=== PATIENT | female | born 1945 | race Caucasian/White ===

== ENCOUNTER → 2016-08-08 | Outpatient (CLI) | payer OTHER ==
[~2016-08-08] MED LIST: ALDA25TA2 OR; AUGM500T34 PO; BENI20TA11 OR; BETA80TA OR; COMBAER6 INH; DIGO0.126 OR; DIGO0.127 PO; FURO20TA2 OR; FURO20TA2 PO; LASI20TA OR; LOSA50TA20 PO; NITR0.4D6 TD; NITRODUR; NITROGLYCERIN TOP; OMEP20CA3 PO; OMEP20TA7 OR; PRAD150C PO; SOTA80TA2 OR; SUPE1TAB PO; TOPR50TA PO; TYLE1TAB5 PO; VIT D 2000 PO; VITA-122 PO; VITA-56 OR; VITA10005 PO; VITAMIN B COMPLE1 OR; pradaxa PO
--- NOTE | 2016-08-08 11:32 | REP ---
LEFT HAND SERIES: Four views. History: Left hand pain. FINDINGS: Four views of the left hand show mild diffuse osteopenia. There is osteoarthritis at the first carpometacarpal articulation with joint space narrowing and sclerosis. Mild osteoarthritic changes are seen at the DIP joints of the index and small finger. IMPRESSION: Osteoarthritic changes. No acute bony abnormality. Signed by Zach Love MD 08/08/2016 02:29 P
--- NOTE | 2016-08-08 12:09 | REP ---
LEFT WRIST, FOUR VIEWS: HISTORY: Pain. There is no acute fracture or dislocation. There is narrowing of the first carpometacarpal joint space with associated sclerosis. IMPRESSION: Degenerative change as described above. Signed by Darius Saini MD 08/08/2016 12:18 P
== END ==
LOC: M SMT 10:37
PROVIDERS: ATTEND Physician Assistant
DX: M19.042 Primary osteoarthritis, left hand (principal)
CPT/HCPCS: 73110; 73130; G0463

== ENCOUNTER → 2016-12-26 | Outpatient (REF) | payer OTHER ==
[2016-12-26 20:17] LABS: ALBUMIN 3.7 GM/DL (3.2-5.2); ALBUMIN/GLOBULIN RATIO 1.19 (1.00-1.93); ALKALINE PHOSPHATASE 76 U/L (45-117); ALT/SGPT 29 U/L (12-78); ANION GAP 2 MEQ/L (8-16); AST/SGOT 22 U/L (15-37); BILIRUBIN,TOTAL 0.8 MG/DL (0.2-1.0); BLOOD UREA NITROGEN 13 MG/DL (7-18); CALCIUM LEVEL 9.2 MG/DL (8.8-10.2); CARBON DIOXIDE LEVEL 31 MEQ/L (21-32); CHLORIDE LEVEL 104 MEQ/L (98-107); CHOLESTEROL LEVEL 154 MG/DL (<200); CREATININE FOR GFR 0.79 MG/DL (0.55-1.02); GLOMERULAR FILTRATION RATE > 60.0 (>39); GLUCOSE, FASTING 101 MG/DL (83-110); POTASSIUM SERUM 4.2 MEQ/L (3.5-5.1); SODIUM LEVEL 137 MEQ/L (136-145); TOTAL PROTEIN 6.8 GM/DL (6.4-8.2); TRIGLYCERIDES LEVEL 114 MG/DL (<150)
== END ==
LOC: M SFHCPLAZ 15:00
PROVIDERS: ATTEND Physician Assistant
DX: I50.9 Heart failure, unspecified (principal); Z13.220 Encounter for screening for lipoid disorders

== ENCOUNTER → 2017-03-13 | Outpatient (CLI) | payer OTHER ==
--- NOTE | 2017-03-14 03:10 | REP ---
Clinical: Postmenopausal bleeding. Technique: Transabdominal pelvic ultrasound followed by transvaginal examination for better evaluation of the endometrium and adnexa. Findings: Bladder is unremarkable and measures 8.1 x 4.7 x 8.2 cm . Normal anteverted uterus measures 6.8 x 4.0 x 4.8 cm . The endometrial complex measures 4 mm thickness. No discrete uterine or endometrial abnormalities are appreciated. The ovaries were not visualized. No pelvic fluid or adnexal mass lesion appreciated. Impression: 1. Normal appearing uterus and endometrium.
== END ==
LOC: M WHC 12:52
PROVIDERS: ATTEND Nurse Practitioner Family
DX: N95.0 Postmenopausal bleeding (principal)

== ENCOUNTER → 2017-04-18 | Outpatient (CLI) | payer OTHER ==
[2017-04-18 18:50] LABS: ALBUMIN 3.8 GM/DL (3.2-5.2); ALBUMIN/GLOBULIN RATIO 1.31 (1.00-1.93); ALKALINE PHOSPHATASE 75 U/L (45-117); ALT/SGPT 27 U/L (12-78); ANION GAP 6 MEQ/L (8-16); AST/SGOT 19 U/L (7-37); BILIRUBIN,TOTAL 0.8 MG/DL (0.2-1.0); BLOOD UREA NITROGEN 15 MG/DL (7-18); CALCIUM LEVEL 9.4 MG/DL (8.8-10.2); CARBON DIOXIDE LEVEL 32 MEQ/L (21-32); CHLORIDE LEVEL 103 MEQ/L (98-107); CREATININE FOR GFR 0.84 MG/DL (0.55-1.02); GLOMERULAR FILTRATION RATE > 60.0 (>39); GLUCOSE, FASTING 95 MG/DL (83-110); SODIUM LEVEL 141 MEQ/L (136-145); TOTAL PROTEIN 6.7 GM/DL (6.4-8.2)
[2017-04-18 19:04] LABS: BASO % 0.4 % (0.0-1.0); EOS # 0.2 10^3/uL (0.0-0.50); EOS % 2.7 % (0.0-3.0); IMMATURE GRANULOCYTE % 0.4 % (0-0); LYMPH # 1.2 10^3/uL (1.5-4.5); LYMPH % 20.8 % (24.0-44.0); MEAN CORPUSCULAR HEMOGLOBIN 32.6 pg (27.0-33.0); MEAN CORPUSCULAR HGB CONC 32.8 g/dl (32.0-36.5); MEAN CORPUSCULAR VOLUME 99.3 fl (80.0-96.0); MONO # 0.8 10^3/uL (0.0-0.8); MONO % 14.7 % (0.0-5.0); NEUTROPHILS # 3.4 10^3/uL (1.8-7.7); PLATELET COUNT, AUTOMATED 131 10^3/uL (150-450); RED CELL DISTRIBUTION WIDTH 13.4 % (11.5-14.5); WHITE BLOOD COUNT 5.6 10^3/uL (4.0-10.0)
== END ==
LOC: M SMT 13:43
PROVIDERS: ATTEND Internal Medicine Hematology & Oncology
DX: C85.90 Non-Hodgkin lymphoma, unspecified, unspecified site (principal)

== ENCOUNTER → 2017-04-26 | Outpatient (CLI) | payer OTHER ==
[~2017-04-26] MED LIST changes: +GASTROGRAFIN SOLUTION 30ML (Q9963) As Ordered ONE; +ISOVUE-370 76% 100ML VIAL (Q9967) As Ordered ONE
--- NOTE | 2017-04-26 12:09 | REP ---
Clinical: Lymphoma. Technique: Axial contrast enhanced images from the lung bases to the pubic symphysis using oral (per protocol) and 100 ml Isovue 370 intravenous contrast material with precontrast and delayed images of the abdomen as well as coronal and sagittal re-formations. Comparison: 04/01/2016. Findings: Multiple retroperitoneal/ periaortic and para caval lymph nodes are appreciated at and below the level of the renal veins. Focal lymph nodes are identified at the level of the renal hilum which measure 2.7 x 2.5 x 3.2 cm, and 2.7 x 3.2 x 3.2 cm as well as a conglomerate mass-like appearance to the lymph nodes which is inseparable from the inferior vena cava from the level of the renal hilum extending inferiorly along the retroperitoneum and measures roughly 5.1 x 3.4 x 6.2 cm (images 42 - 80). Lymph nodes are considerably increased in size when compared to prior examination and smaller lymph nodes extending into the pelvis cannot definitively be excluded as well. No ascites. Liver, spleen, pancreas, gallbladder, bilateral adrenal glands and kidneys are relatively normal / stable. Simple bilateral renal cysts are again identified. The enteric system is without obstruction or acute inflammatory process and a normal terminal ileum and appendix are identified in the right lower quadrant. Pelvis demonstrates normal bladder and age-appropriate uterus/adnexa. Atherosclerotic changes of the aorta and vasculature noted without aneurysm. No free air. Musculoskeletal structures demonstrate stable degenerative changes without focal osseous abnormality. Lung bases demonstrate mild chronic fibrosis and interstitial changes along with stable cardiomegaly. Impression: 1. Enlarged lymph nodes in the right retroperitoneal/ periaortic and paracaval distribution extending from approximately the renal veins caudally to the pelvis as described above. 2. Stable simple renal cysts. 3. Lung bases demonstrate chronic interstitial changes and fibrosis along with cardiomegaly. Signed by Hammad Steel MD 04/26/2017 12:01 P
--- NOTE | 2017-04-26 12:10 | REP ---
Clinical: Lymphoma. Technique: Axial contrast enhanced images from the thoracic inlet to the upper abdomen using 100 ml Isovue 370 intravenous contrast material with coronal and sagittal re-formations. Comparison: 04/01/2016. Findings: The lung santana are well-aerated and demonstrate moderate chronic interstitial changes and mild basilar fibrosis/scarring. No consolidation, significant nodule or mass lesion is appreciated. No pleural effusion or pneumothorax. Tracheobronchial tree is patent. No significant axillary, hilar, or mediastinal adenopathy is appreciated. Cardiomegaly is identified along with atherosclerotic changes to the coronary arteries. No pericardial effusion. The thoracic aorta is without aneurysm or dissection. Left thyroid lobe enlargement with low density nodules and cystic changes remain stable. Surrounding musculoskeletal structures demonstrate age-related changes without focal osseous abnormality Impression: 1. Chronic stable changes and cardiomegaly as noted above without acute mediastinal or pleuroparenchymal process. Specifically, no adenopathy. 2. Heterogeneous multinodular thyroid gland remains stable compared to 2016. Signed by Hammad Steel MD 04/26/2017 12:02 P
== END ==
LOC: M RAD 09:11
PROVIDERS: ATTEND Internal Medicine Hematology & Oncology
DX: Z85.71 Personal history of Hodgkin lymphoma (principal)

== ENCOUNTER → 2017-05-02 | Outpatient (CLI) | payer OTHER ==
[~2017-05-02] MED LIST changes: +CALCTAB75 PO; +ENTR1TAB PO; -GASTROGRAFIN SOLUTION 30ML (Q9963) As Ordered ONE; -ISOVUE-370 76% 100ML VIAL (Q9967) As Ordered ONE; +NITR0.4S14 SL
[2017-05-02 17:30] LABS: MEAN CORPUSCULAR HEMOGLOBIN 32.6 pg (27.0-33.0); MEAN CORPUSCULAR HGB CONC 32.6 g/dl (32.0-36.5); PLATELET COUNT, AUTOMATED 115 10^3/uL (150-450); RED CELL DISTRIBUTION WIDTH 13.7 % (11.5-14.5)
[2017-05-02 17:38] LABS: ANION GAP 5 MEQ/L (8-16); BLOOD UREA NITROGEN 12 MG/DL (7-18); CALCIUM LEVEL 8.5 MG/DL (8.8-10.2); CARBON DIOXIDE LEVEL 30 MEQ/L (21-32); CHLORIDE LEVEL 107 MEQ/L (98-107); CREATININE FOR GFR 0.81 MG/DL (0.55-1.02); GLOMERULAR FILTRATION RATE > 60.0 (>39); GLUCOSE, FASTING 119 MG/DL (83-110); SODIUM LEVEL 142 MEQ/L (136-145)
== END ==
LOC: M LRY 11:51
PROVIDERS: ATTEND Internal Medicine Cardiovascular Disease
DX: I50.9 Heart failure, unspecified (principal)

== ENCOUNTER 2017-05-09 12:46 | Inpatient (IN) | payer OTHER ==
[~2017-05-09] VITALS: Ht 165.1 cm; Wt 62.6 kg
[~2017-05-09 12:46] MED LIST changes: -CALCTAB75 PO; -CEFD300CAP PO; -ENTR1TAB PO; -NITR0.4S14 SL
[2017-05-09] MEDS ORDERED: ENTR1TAB PO (13:10)
[2017-05-09 14:48] LABS: BASO % 0.3 % (0.0-1.0); IMMATURE GRANULOCYTE % 0.4 % (0-0); LYMPH # 1.3 10^3/uL (1.5-4.5); LYMPH % 10.5 % (24.0-44.0); MEAN CORPUSCULAR HEMOGLOBIN 32.5 pg (27.0-33.0); MEAN CORPUSCULAR HGB CONC 33.7 g/dl (32.0-36.5); MEAN CORPUSCULAR VOLUME 96.4 fl (80.0-96.0); MONO # 1.7 10^3/uL (0.0-0.8); MONO % 13.2 % (0.0-5.0); NEUTROPHILS # 9.5 10^3/uL (1.8-7.7); NEUTROPHILS % 75.6 % (36.0-66.0); PLATELET COUNT, AUTOMATED 133 10^3/uL (150-450); RED CELL DISTRIBUTION WIDTH 13.2 % (11.5-14.5); WHITE BLOOD COUNT 12.6 10^3/uL (4.0-10.0)
[2017-05-09 15:16] LABS: MUCUS, URINE RFX SMALL (NEGATIVE); SPECIFIC GRAVITY UR AUTO RFX 1.014 (1.002-1.035); SQUAM EPITHELIAL CELL UR AURFX 4 /HPF (0-6)
[2017-05-09 15:35] LABS: ALBUMIN/GLOBULIN RATIO 1.08 (1.00-1.93); ALKALINE PHOSPHATASE 87 U/L (45-117); ALT/SGPT 26 U/L (12-78); ANION GAP 13 MEQ/L (8-16); AST/SGOT 19 U/L (7-37); BILIRUBIN,DIRECT 0.9 MG/DL (0.0-0.2); BILIRUBIN,TOTAL 2.4 MG/DL (0.2-1.0); BLOOD UREA NITROGEN 18 MG/DL (7-18); CALCIUM LEVEL 8.9 MG/DL (8.8-10.2); CARBON DIOXIDE LEVEL 25 MEQ/L (21-32); CHLORIDE LEVEL 100 MEQ/L (98-107); CREATININE FOR GFR 0.94 MG/DL (0.55-1.02); DIGOXIN LEVEL 0.7 NG/ML (0.5-2.0); GLOMERULAR FILTRATION RATE > 60.0 (>39); GLUCOSE, FASTING 100 MG/DL (83-110); SODIUM LEVEL 138 MEQ/L (136-145); TOTAL PROTEIN 7.7 GM/DL (6.4-8.2)
--- NOTE | 2017-05-09 15:50 | REP ---
CT ABDOMEN AND PELVIS WITHOUT CONTRAST: 05/09/2017. Comparison: CT without and with contrast 04/26/2017. Clinical history: Right flank pain, fever, UTI symptoms. Findings: CT abdomen: Lung bases show some minor dependent atelectasis and fibrosis without effusion or infiltrate. Heart is enlarged. There is cardiomegaly with left atrial and ventricular enlargement. Pacer leads in the heart. No hiatal hernia. Liver and spleen were grossly intact. There is some layered hyperdense stones in the dependent gallbladder. Pancreas unremarkable. Adrenal glands intact. There is developed obstructive uropathy on the right side with hydronephrosis, hydroureter and extrarenal pelvis. Appears to be a UPJ obstruction with large bulky aortocaval pericaval nodes with some periaortic nodes as well extending from the level of takeoff of the SMA inferiorly into the upper pelvis. Some of these follow the iliac vessels. The nodes are not much different than 2 weeks ago, but the hydronephrosis is new on that right side. I do not see left-sided hydronephrosis. The left ureter is without dilatation. There is no stone in the left collecting system or ureter. Stool fills much of the colon, but without signs of colitis or diverticulitis. Atherosclerotic calcifications throughout the aorta without aneurysm. Small bowel loops are not abnormally dilated. Lung windows show no perforation or free air. Bone windows show degenerative disc changes, greatest at L5-S1 with some facet arthropathy lower lumbar spine, but no destructive lesions in the lumbar spine or acute compression deformities visible. The bone windows show no rib fractures. CT pelvis: SI joints, sacrum, pelvic bones, hips and pubic symphysis were unremarkable. Uterus anteverted, not enlarged and it is midline. I do not see definite pelvic lymphadenopathy. The bladder shows thickened wall and underfilling. No bladder mass or stone. Small bowel loops are not abnormally dilated. There is no ventral or inguinal hernia nor pathologic inguinal adenopathy. No colitis or diverticulitis in the distal left colon to the rectosigmoid. No inflammatory changes about the cecum. Appendix is grossly intact. Impression: 1. Multiple pericaval, retroperitoneal and aortocaval adenopathy, predominately on the right contributing to new hydronephrosis, the nodes are unchanged. Extrarenal pelvis with obstruction is new compared to 2 weeks ago. No renal stone. There is a cyst in the kidney on the right, unchanged. The left kidney shows no hydronephrosis or stone. Nodes are unchanged. 2. The gallbladder shows some dependent gravel in its posterior margin, solid organs in the upper abdomen otherwise unremarkable. 3. Bladder with underfilling and a somewhat thickened wall. No mass or stone. No ureteral stone. No other significant or acute finding. Signed by Dae Faith MD 05/09/2017 08:34 P
[2017-05-09] MEDS ORDERED: ACETAMINOPHEN 325 MG TAB PO ONE (17:00)
[2017-05-09] MEDS ORDERED: CEFTRIAXONE SOD 2 GM in APPROPRIATE DILUENT 1 EA IV ONE (17:00)
[2017-05-09] MEDS ORDERED: CALCTAB75 PO (17:16)
[2017-05-09] MEDS ORDERED: NITR0.4S14 SL (17:16)
--- NOTE | 2017-05-09 18:41 | SMCUROLCON ---
Urology Consultation General Date of Consultation 05/09/17 Reason For Consultation This patient is seen for Pyelonephritis. History of Present Illness This is a 72 y/o F w/ a PMH significant for Non-Hodgkins Lymphoma, CHF, AF (on pradaxa), and GERD, being admitted to the hospital for pyelonephritis. She notes that she started having fevers to 102, right flank pain, and urinary frequency yesterday. She denies nausea or vomiting. A noncontrast CT A/P was notable for moderate right hydronephrosis down to the ureteropelvic junction ( UPJ) due to obstruction from retroperitoneal lymphadenopathy. Her WBC is 12.6 and her Cr is 0.9, not much higher than her baseline. Past Medical History Medical History see HPI Surgical Hstory AICD 2009, Pacemaker/Defibrillator x 2 Tubal Ligation Tonsillectomy Mediport Insertion 2003 & removed Medications Current Medications Current Medications Acetaminophen (Tylenol Tab) 650 mg Q4HP PRN PO MILD PAIN OR FEVER; Start at 18:00; Stop 06/08/17 at 17:59 Calcium/Vitamin D (Oscal D) 500 mg BID PO ; Start 05/09/17 at 21:00; Stop at 20:59 Ceftriaxone Sodium 2 gm/IV Miscellaneous Supplies 20 ml @ 40 mls/hr Q24H IV ; Start 05/10/17 at 18:00; Stop 05/17/17 at 17:59 Digoxin (Lanoxin) 0.125 mg DAILY PO ; Start 05/10/17 at 09:00; Stop 06/09/17 at 08:59 Furosemide (Lasix) 20 mg DAILY PO ; Start 05/10/17 at 09:00; Stop 05/10/17 at 09 :00; Status DC Home Med (Med Rec Complete!) ASDIRECTED XX ; Start 05/09/17 at 17:30; Stop 05/09/17 at 17:30; Status DC Metoprolol Succinate (TopROL XL) 150 mg QHS PO ; Start 05/09/17 at 21:00; Stop 06/08/17 at 20:59 Nitroglycerin (Nitrostat (1/ 150)) 0.4 mg Q5MP PRN SL CHEST PAIN; Start at 18:00; Stop 06/08/17 at 17:59 Sacubitril/ Valsartan (Entresto 24-26 Mg) 1 tab BID PO ; Start 05/09/17 at 21:00 ; Stop 05/09/17 at 21:00; Status DC Vitamin D (Vitamin D) 1,000 units DAILY PO ; Start 05/10/17 at 09:00; Stop at 08:59 Allergies Allergies: Coded Allergies: Ciprofloxacin (Unverified Allergy, Unknown, 01/14/16) Review of Systems Constitutional: Reports: Fever ENT: Denies: Head Aches Skin: Denies: Rash, Lesions, Breakdown, Nail Changes Pulmonary: Denies: Dyspnea, Cough Cardiovascular: Denies Chest Pain, Denies Palpitations Gastrointestinal: Reports: Abdominal Pain Genitourinary: Reports: Frequency Musculoskeletal: Reports: Back Pain (right flank pain yesterday) Psych: Reports: Mood Normal Physical Examination General Exam: Alert, Cooperative Chest Exam: Clear to auscultation Heart Exam: Rate Normal, Regular Rhythm Abdomen Exam: Soft, No: Tenderness Skin Exam: Nl turgor and temperature Neuro Exam: Normal Speech Psych Exam: Mental status NL, Mood NL Vital Signs/I&O Vital Signs Date Time Temp Pulse Resp B/P (MAP) Pulse Ox O2 Delivery O2 Flow Rate FiO2 05/09/17 18:03 05/09/17 16:44 100.7 05/09/17 16:36 78 18 98 Room Air Laboratory Data 24H Labs Laboratory Tests 2 05/09/17 14:35: Immature Granulocyte % (Auto) 0.4H, White Blood Count 12.6H, Red Blood Count 4.96, Hemoglobin 16.1H, Hematocrit 47.8H, Mean Corpuscular Volume 96.4H, Mean Corpuscular Hemoglobin 32.5, Mean Corpuscular Hemoglobin Concent 33.7, Red Cell Distribution Width 13.2, Platelet Count 133L, Neutrophils (%) (Auto) 75.6H, Lymphocytes (%) (Auto) 10.5L, Monocytes (%) (Auto) 13.2H, Eosinophils (%) (Auto ) 0.0, Basophils (%) (Auto) 0.3, Neutrophils # (Auto) 9.5H, Lymphocytes # (Auto ) 1.3L, Monocytes # (Auto) 1.7H, Eosinophils # (Auto) 0.0, Basophils # (Auto) 0.0, Immature Granulocyte # (Auto) 0.1H, Nucleated Red Blood Cells % (auto) 0.0 , Anion Gap 13, Glomerular Filtration Rate > 60.0, Calcium Level 8.9, Aspartate Amino Transf (AST/SGOT) 19, Alanine Aminotransferase (ALT/SGPT) 26, Alkaline Phosphatase 87, Total Bilirubin 2.4H, Direct Bilirubin 0.9H, Total Protein 7.7, Albumin 4.0, Albumin/Globulin Ratio 1.08, Lipase 49L, Digoxin Level 0.7 05/09/17 14:54: Urine Color YELLOW, Urine Appearance CLOUDYH, Urine pH 5.0, Urine Specific [place] 1.014, Urine Protein 2+H, Urine Glucose (UA) NEGATIVE, Urine Ketones 1+H , Urine Blood 3+H, Urine Nitrite POSITIVE, Urine Bilirubin NEGATIVE, Urine Urobilinogen 0.2, Urine Leukocyte Esterase 3+H, Urine WBC (Auto) TNTCH, Urine RBC (Auto) 72H, Urine Hyaline Casts (Auto) 0, Urine Bacteria (Auto) 3+H, Urine Squamous Epithelial Cells 4, Urine Mucus (Auto) SMALL, Urine Sperm (Auto) 05/09/17 16:48: Lactic Acid Level 2.0 CBC/BMP Laboratory Tests 05/09/17 14:35 Red Blood Count 4.96, Mean Corpuscular Volume 96.4 H, Mean Corpuscular Hemoglobin 32.5, Mean Corpuscular Hemoglobin Concent 33.7, Red Cell Distribution Width 13.2, Neutrophils (%) (Auto) 75.6 H, Lymphocytes (%) (Auto) 10.5 L, Monocytes (%) (Auto) 13.2 H, Eosinophils (%) (Auto) 0.0, Basophils (%) ( Auto) 0.3, Neutrophils # (Auto) 9.5 H, Lymphocytes # (Auto) 1.3 L, Monocytes # ( Auto) 1.7 H, Eosinophils # (Auto) 0.0, Basophils # (Auto) 0.0 Microbiology Microbiology 05/09/17 Blood Culture, Received Pending 05/09/17 Blood Culture, Received Pending 05/09/17 Urine Culture, Received Pending Assessment This is a 72 y/o F w/ moderate right hydronephrosis due to obstructing retroperitoneal nodes. Given the cause of obstruction is from extrinsic compression of the ureter, I recommended right percutaneous nephrostomy tube placement as stents are prone to fail when used for extrinsic compression. This was explained to the patient. I also explained that unless her lymphadenopathy responds to treatment and shrinks, she will need to have continued drainage of the right kidney w/ periodic changes of the tube. She noted understanding. Plan - recommend right percutaneous nephrostomy tube placement by radiology - timing of placement will depend on when pradaxa clears her system (last dose was yesterday evening) - continue broad-spectrum antibiotic and adjust based on culture results - plan of care discussed w/ patient and primary team JOSE ROBLERO MD May 09, 2017 18:41
[2017-05-09 18:55] LABS: INR 1.71
--- NOTE | 2017-05-09 19:02 | HPEPDOC ---
General Date of Admission May 09, 2017 at 17:27 Primary Care Physician: Darshan Nickerson Other Providers [employer] Systems Installer: Dr. Wang Oncologist: Yadiel Woods Chief Complaint 72-year-old female presents to the ED for right flank pain for the past few days. PMH includes systolic CHF with EF 35-40%, non-Hodgkin's lymphoma, HTN, A. fib on Pradaxa. Symptoms associated urgency, frequency, decreased urine output, dark urine, subjective fever of 102, chills, headaches, and decreased appetite. Denies sick contacts. Positive for recent travel as pt returned from [place] this Monday. Started on Entresto last week. No other changes in medications or daily habits. Patient denies all other ROS including chest pain/ pressure, shortness of breath, wheezing, weight loss, hematuria. In the ED, patient was noted to have elevated WBC 12.6, positive UA, fever 100.7 , and hydronephrosis from adenopathy on CT of abdomen. Patient was given Tylenol and 1 dose of ceftriaxone. Home Medications Scheduled (Super B-Complex) 1 Tab Tab, 1 TAB PO DAILY, (Reported) Calcium/Vitamin D (Calcium 500 +D 500-400 mg-Unit) 1 Tab Tab, 1 TAB PO BID, ( Reported) Cholecalciferol (Vitamin D3) 1,000 Unit Tab, 1,000 UNIT PO DAILY, (Reported) Dabigatran Etexilate (Pradaxa) 150 Mg Cap, 150 MG PO BID, (Reported) Digoxin (Digox) 0.125 Mg Tab, 0.125 MG PO DAILY, (Reported) Furosemide (Furosemide) 20 Mg Tab, 20 MG PO DAILY, (Reported) Metoprolol Succinate (Toprol Xl) 50 Mg Tab, 150 MG PO QHS, (Reported) Sacubitril/Valsartan (Entresto 24-26 mg) 1 Tab Tab, 1 TAB PO BID, (Reported) Vitamin E (Vitamin E) 1,000 Unit Cap, 1,000 UNIT PO QHS, (Reported) Scheduled PRN Nitroglycerin (Nitroglycerin) 0.4 Mg Sub, 0.4 MG SL Q5MP PRN for CHEST PAIN, ( Reported) Allergies Coded Allergies: Ciprofloxacin (Unverified Allergy, Unknown, 01/14/16) Past Medical History Medical History A. fib on Pradaxa Defibrillator & pacemaker Non-Hodgkin's lymphoma Systolic CHF (EF 35-40% 2012 echo) HTN Surgical History D&C 1971 Mediport insertion and removal Defibrillator and pacemaker Colonoscopy 2012 Family History Father: Passed of stroke, DM 2 Mother: Unknown cancer Social History Smoking: Quit tobacco 10 years ago (1 PPD for 40 years) Alcohol: Socially Lives with son and his family in [place] Review of Symptoms Constitutional: Reports: Chills, Fever, Denies: Night Sweats, Weakness, Fatigue, Weight Loss Eyes: Denies: Pain, Vision change ENT: Reports: Head Aches, Denies: Ear Pain, Dysphagia, Post Nasal Drip, Sore Throat Skin: Denies: Rash Pulmonary: Denies: Dyspnea, Cough Cardiovascular: Denies: Chest Pain, Palpitations, Edema, Lt Headedness Gastrointestinal: Reports: Abdominal Pain (right upper side), Denies: Nausea, Vomiting, Diarrhea, Constipation, Melena, Hematochezia Genitourinary: Reports: Frequency, Other Symptoms (urgency), Denies: Dysuria, Hematuria Hematologic: Denies: Bruising, Bleeding Excessively Endocrine: Denies: Heat Intolerance, Cold Intolerance Musculoskeletal: Reports: Back Pain (right flank) Neurological: Denies: Weakness, Numbness, Incoordination Psych: Reports: Mood Normal Physical Examination General Exam: Positive: Alert, Cooperative, No Acute Distress Eye Exam: Positive: Conjunctiva & lids normal, EOMI, Negative: Ptosis ENT Exam: Positive: Atraumatic Neck Exam: Positive: Supple, Negative: Lymphadenopathy Chest Exam: Positive: Clear to auscultation, Normal air movement, Negative: Rales, Rhonchi, Wheezing Heart Exam: Positive: Rate Normal, Normal S1, Normal S2 Abdomen Exam: Positive: Normal bowel sounds, Soft, Tenderness (mild tenderness to RUQ, right flank & CVA tenderness) Extremity Exam: Positive: Normal pulses, Negative: Cyanosis, Edema, Tenderness Skin Exam: Positive: Nl turgor and temperature Neuro Exam: Positive: Normal Speech, Strength at 5/5 X4 ext, Normal Tone, Sensation Intact Psych Exam: Positive: Mental status NL, Mood NL, Memory Intact, Oriented x 3 Vital Signs Vital Signs Date Time Temp Pulse Resp B/P (MAP) Pulse Ox O2 Delivery O2 Flow Rate FiO2 05/09/17 18:03 05/09/17 16:44 100.7 05/09/17 16:36 78 18 98 Room Air Laboratory Data Labs 24H Laboratory Tests 2 05/09/17 14:35: Immature Granulocyte % (Auto) 0.4H, White Blood Count 12.6H, Red Blood Count 4.96, Hemoglobin 16.1H, Hematocrit 47.8H, Mean Corpuscular Volume 96.4H, Mean Corpuscular Hemoglobin 32.5, Mean Corpuscular Hemoglobin Concent 33.7, Red Cell Distribution Width 13.2, Platelet Count 133L, Neutrophils (%) (Auto) 75.6H, Lymphocytes (%) (Auto) 10.5L, Monocytes (%) (Auto) 13.2H, Eosinophils (%) (Auto ) 0.0, Basophils (%) (Auto) 0.3, Neutrophils # (Auto) 9.5H, Lymphocytes # (Auto ) 1.3L, Monocytes # (Auto) 1.7H, Eosinophils # (Auto) 0.0, Basophils # (Auto) 0.0, Immature Granulocyte # (Auto) 0.1H, Nucleated Red Blood Cells % (auto) 0.0 , Anion Gap 13, Glomerular Filtration Rate > 60.0, Calcium Level 8.9, Aspartate Amino Transf (AST/SGOT) 19, Alanine Aminotransferase (ALT/SGPT) 26, Alkaline Phosphatase 87, Total Bilirubin 2.4H, Direct Bilirubin 0.9H, Total Protein 7.7, Albumin 4.0, Albumin/Globulin Ratio 1.08, Lipase 49L, Digoxin Level 0.7 05/09/17 14:54: Urine Color YELLOW, Urine Appearance CLOUDYH, Urine pH 5.0, Urine Specific [place] 1.014, Urine Protein 2+H, Urine Glucose (UA) NEGATIVE, Urine Ketones 1+H , Urine Blood 3+H, Urine Nitrite POSITIVE, Urine Bilirubin NEGATIVE, Urine Urobilinogen 0.2, Urine Leukocyte Esterase 3+H, Urine WBC (Auto) TNTCH, Urine RBC (Auto) 72H, Urine Hyaline Casts (Auto) 0, Urine Bacteria (Auto) 3+H, Urine Squamous Epithelial Cells 4, Urine Mucus (Auto) SMALL, Urine Sperm (Auto) 05/09/17 16:48: Lactic Acid Level 2.0 CBC/BMP Laboratory Tests 05/09/17 14:35 Red Blood Count 4.96, Mean Corpuscular Volume 96.4 H, Mean Corpuscular Hemoglobin 32.5, Mean Corpuscular Hemoglobin Concent 33.7, Red Cell Distribution Width 13.2, Neutrophils (%) (Auto) 75.6 H, Lymphocytes (%) (Auto) 10.5 L, Monocytes (%) (Auto) 13.2 H, Eosinophils (%) (Auto) 0.0, Basophils (%) ( Auto) 0.3, Neutrophils # (Auto) 9.5 H, Lymphocytes # (Auto) 1.3 L, Monocytes # ( Auto) 1.7 H, Eosinophils # (Auto) 0.0, Basophils # (Auto) 0.0 Microbiology Microbiology 05/09/17 Blood Culture, Received Pending 05/09/17 Blood Culture, Received Pending 05/09/17 Urine Culture, Received Pending Assessment/Plan Pyelonephritis urgency, frequency, rt flank pain, positive UA, fever, leukocytosis abd/pelvis CT revealed pericaval, retroperitoneal and aortocaval adenopathy causing right hydronephrosis, & extrarenal obstruction, likely due to lymphoma recurrence urine culture pending. Pt started on Ceftriaxone Dr. Hamm consulted, appreciate Urology's input nephrostomy tube placement tomorrow A. fib on Pradaxa Hold Pradaxa prior to procedure. Last dose was yesterday. May resume after continue Digoxin Defibrillator & pacemaker will call [employer] to shut off AICD/pacer in am for procedure Non-Hodgkin's lymphoma Continue f/u with [place] Oncologist, Dr. Mariee Systolic CHF (EF 35-40% 2011 echo) compensated hold home Lasix for am procedure. May resume after HTN hold home Entresto for procedure in am. May resume after DVT ppx LIANNE/SCD hold anticoagulation due to possible procedure in am DISPOSITION: will admit to hospital with possible nephrostomy tube placement tomorrow Plan / VTE VTE Prophylaxis Ordered?: Yes GME ATTESTATION GME ATTESTATION My faculty preceptor for this patient encounter was physically present during the encounter and was fully available. All aspects of the patient interview, examination, medical decision making process, and medical care plan development were reviewed and approved by the faculty preceptor. The faculty preceptor is aware and concurs with the plan as stated in the body of this note and will attest to such by his/her cosignature. ATTENDING NOTE Attending Note: I have independently examined this patient and all aspects of the exam and treatment decisions have been discussed with the resident. A member of the hospitalist staff will continue to follow this patient through discharge. HAMZAH STEVE DO May 09, 2017 18:28 DIO PETTIT DO May 12, 2017 15:34
[2017-05-09] MEDS: METOPROLOL SUCC (TopROL XL) 50MG **XL** TAB PO SCH (19:52)
[2017-05-09] MEDS: CALCIUM/VITAMIN D 500 MG TAB PO SCH (20:05)
[2017-05-09 21:00] VITALS: BP 98/52
[2017-05-09] MEDS ORDERED: ENTRESTO 24-26MG TABLET (SACUBITRIL/VALSARTAN) PO SCH (21:00)
[2017-05-10 06:00] VITALS: BP 115/55
[2017-05-10 07:34] LABS: MEAN CORPUSCULAR HEMOGLOBIN 32.2 pg (27.0-33.0); MEAN CORPUSCULAR HGB CONC 34.3 g/dl (32.0-36.5); MEAN CORPUSCULAR VOLUME 93.9 fl (80.0-96.0); PLATELET COUNT, AUTOMATED 114 10^3/uL (150-450); WHITE BLOOD COUNT 11.2 10^3/uL (4.0-10.0)
[2017-05-10 07:36] LABS: ANION GAP 10 MEQ/L (8-16); BLOOD UREA NITROGEN 21 MG/DL (7-18); CALCIUM LEVEL 8.3 MG/DL (8.8-10.2); CARBON DIOXIDE LEVEL 24 MEQ/L (21-32); CHLORIDE LEVEL 106 MEQ/L (98-107); CREATININE FOR GFR 0.76 MG/DL (0.55-1.02); GLOMERULAR FILTRATION RATE > 60.0 (>39); GLUCOSE, FASTING 107 MG/DL (83-110); POTASSIUM SERUM 3.7 MEQ/L (3.5-5.1); SODIUM LEVEL 140 MEQ/L (136-145)
--- NOTE | 2017-05-10 08:12 | IPNPDOC ---
Subjective Date Seen The patient was seen on 05/10/17. Subjective Chief Complaint/HPI The patient is a 72-year-old female admitted with a reason for visit of Pyelonephritis. Events since last encounter No back pain currently. Urinating with less dysuria today. Thirsty. Constitutional: Denies: Chills, Fever Pulmonary: Denies: Dyspnea, Cough Cardiovascular: Denies: Chest Pain, Palpitations, Orthopnea, Edema Gastrointestinal: Denies: Abdominal Pain, Diarrhea, Constipation Genitourinary: Reports: Dysuria (mild), Denies: Hematuria Objective Physical Examination General Exam: Positive: Alert, Cooperative, No Acute Distress ENT Exam: Negative: Mucous membr. moist/pink (dry) Chest Exam: Positive: Clear to auscultation, Normal air movement, Negative: Rales, Rhonchi, Wheezing Heart Exam: Positive: Rate Normal, Normal S1, Normal S2 Abdomen Exam: Positive: Normal bowel sounds, Soft, Negative: Tenderness Extremity Exam: Negative: Edema Skin Exam: Negative: Nl turgor and temperature Psych Exam: Positive: Oriented x 3 Assessment /Plan Problems (1) Pyelonephritis Status: Acute Response to Treatment: Improving Problem Text: On IV Rocephin B/C and U/C pending. Afebrile WBC 11.2 (2) Hypotension Status: Acute Problem Text: Lasix and Entresto on hold. Looks a little dry I will start slow rate IVF - watch BP. Watch for signs of CHF inpatient with EF of 25% (3) Extrinsic ureteral obstruction Status: Acute Problem Text: Likely caused by recurrence of lymphoma Nephrostomy today - Urology following (4) Systolic CHF, chronic Status: Chronic Response to Treatment: Stable Problem Text: Lasix and Entresto on hold for low BP (5) B-cell lymphoma Status: Chronic Problem Text: Follows with Oncology in [place] (6) Atrial fibrillation Status: Chronic Response to Treatment: Stable Problem Text: RAte controlled on Metoprolol (held this am for low BP) Pradaxa held for Nephrostomy today Plan/VTE VTE Prophylaxis Ordered?: Yes (TEDS/Sequentials Restart Pradaxa once stable per above) VS, I&O, 24H, Fishbone Vital Signs/I&O Vital Signs Date Time Temp Pulse Resp B/P (MAP) Pulse Ox O2 Delivery O2 Flow Rate FiO2 05/10/17 06:00 99.5 85 18 115/55 (75) 95 Room Air Laboratory Data 24H LABS Laboratory Tests 2 05/09/17 14:35: Immature Granulocyte % (Auto) 0.4H, White Blood Count 12.6H, Red Blood Count 4.96, Hemoglobin 16.1H, Hematocrit 47.8H, Mean Corpuscular Volume 96.4H, Mean Corpuscular Hemoglobin 32.5, Mean Corpuscular Hemoglobin Concent 33.7, Red Cell Distribution Width 13.2, Platelet Count 133L, Neutrophils (%) (Auto) 75.6H, Lymphocytes (%) (Auto) 10.5L, Monocytes (%) (Auto) 13.2H, Eosinophils (%) (Auto ) 0.0, Basophils (%) (Auto) 0.3, Neutrophils # (Auto) 9.5H, Lymphocytes # (Auto ) 1.3L, Monocytes # (Auto) 1.7H, Eosinophils # (Auto) 0.0, Basophils # (Auto) 0.0, Immature Granulocyte # (Auto) 0.1H, Nucleated Red Blood Cells % (auto) 0.0 , Anion Gap 13, Glomerular Filtration Rate > 60.0, Calcium Level 8.9, Aspartate Amino Transf (AST/SGOT) 19, Alanine Aminotransferase (ALT/SGPT) 26, Alkaline Phosphatase 87, Total Bilirubin 2.4H, Direct Bilirubin 0.9H, Total Protein 7.7, Albumin 4.0, Albumin/Globulin Ratio 1.08, Lipase 49L, Digoxin Level 0.7 05/09/17 14:54: Urine Color YELLOW, Urine Appearance CLOUDYH, Urine pH 5.0, Urine Specific [place] 1.014, Urine Protein 2+H, Urine Glucose (UA) NEGATIVE, Urine Ketones 1+H , Urine Blood 3+H, Urine Nitrite POSITIVE, Urine Bilirubin NEGATIVE, Urine Urobilinogen 0.2, Urine Leukocyte Esterase 3+H, Urine WBC (Auto) TNTCH, Urine RBC (Auto) 72H, Urine Hyaline Casts (Auto) 0, Urine Bacteria (Auto) 3+H, Urine Squamous Epithelial Cells 4, Urine Mucus (Auto) SMALL, Urine Sperm (Auto) 05/09/17 16:48: Lactic Acid Level 2.0 05/09/17 18:29: Prothrombin Time 20.6H, Prothromb Time International Ratio 1.71 05/10/17 07:04: Nucleated Red Blood Cells % (auto) 0.0, Anion Gap 10, Glomerular Filtration Rate > 60.0, Blood Urea Nitrogen 21H, Creatinine 0.76, Sodium Level 140, Potassium Level 3.7, Chloride Level 106, Carbon Dioxide Level 24, Calcium Level 8.3L CBC/BMP Laboratory Tests 05/09/17 14:35 Red Blood Count 4.96, Mean Corpuscular Volume 96.4 H, Mean Corpuscular Hemoglobin 32.5, Mean Corpuscular Hemoglobin Concent 33.7, Red Cell Distribution Width 13.2, Neutrophils (%) (Auto) 75.6 H, Lymphocytes (%) (Auto) 10.5 L, Monocytes (%) (Auto) 13.2 H, Eosinophils (%) (Auto) 0.0, Basophils (%) ( Auto) 0.3, Neutrophils # (Auto) 9.5 H, Lymphocytes # (Auto) 1.3 L, Monocytes # ( Auto) 1.7 H, Eosinophils # (Auto) 0.0, Basophils # (Auto) 0.0 05/10/17 07:04 Red Blood Count 4.44, Mean Corpuscular Volume 93.9, Mean Corpuscular Hemoglobin 32.2, Mean Corpuscular Hemoglobin Concent 34.3, Red Cell Distribution Width 13.0 , Calcium Level 8.3 L Microbiology Microbiology 05/09/17 Blood Culture, Received Pending 05/09/17 Blood Culture, Received Pending 05/09/17 Urine Culture, Received Pending ANKUR PLUNKETT PA-C May 10, 2017 08:12
[2017-05-10] MEDS ORDERED: NS 1,000 ML IV SCH (08:15)
[2017-05-10] MEDS: CALCIUM/VITAMIN D 500 MG TAB PO SCH ×2 (08:59→20:25)
[2017-05-10] MEDS: VITAMIN D 1,000 INTERNATIONAL UNITS TABLET PO SCH (08:59)
[2017-05-10] MEDS: DIGOXIN 0.125 MG TAB PO SCH (09:00)
[2017-05-10] MEDS ORDERED: FUROSEMIDE 20 MG TAB PO SCH (09:00)
[2017-05-10] MEDS: ACETAMINOPHEN TAB 650MG DOSE (2X325MG) PO PRN ×2 (09:02→15:51)
[2017-05-10 09:20] VITALS: BP 120/70
[2017-05-10 14:41] VITALS: BP 123/80
[2017-05-10] MEDS: CEFTRIAXONE SOD 2 GM in APPROPRIATE DILUENT 1 EA IV SCH (18:16)
[2017-05-10] MEDS: METOPROLOL SUCC (TopROL XL) 50MG **XL** TAB PO SCH (20:26)
[2017-05-10 22:00] VITALS: BP 99/58
[2017-05-11] MEDS ORDERED: diphenhydrAMINE 25 MG CAP PO ONE (00:30)
[2017-05-11 06:00] VITALS: BP 103/55
[2017-05-11 07:10] LABS: MEAN CORPUSCULAR HEMOGLOBIN 32.4 pg (27.0-33.0); MEAN CORPUSCULAR HGB CONC 33.9 g/dl (32.0-36.5); MEAN CORPUSCULAR VOLUME 95.6 fl (80.0-96.0); PLATELET COUNT, AUTOMATED 111 10^3/uL (150-450); WHITE BLOOD COUNT 5.3 10^3/uL (4.0-10.0)
[2017-05-11 07:32] LABS: ANION GAP 9 MEQ/L (8-16); BLOOD UREA NITROGEN 17 MG/DL (7-18); CALCIUM LEVEL 8.4 MG/DL (8.8-10.2); CARBON DIOXIDE LEVEL 24 MEQ/L (21-32); CHLORIDE LEVEL 109 MEQ/L (98-107); CREATININE FOR GFR 0.58 MG/DL (0.55-1.02); GLOMERULAR FILTRATION RATE > 60.0 (>39); GLUCOSE, FASTING 91 MG/DL (83-110); POTASSIUM SERUM 3.6 MEQ/L (3.5-5.1); SODIUM LEVEL 142 MEQ/L (136-145)
[2017-05-11] MEDS ORDERED: FUROSEMIDE 20 MG TAB PO SCH (09:00)
[2017-05-11] MEDS ORDERED: INFLUENZA VIRUS VACCINE HIGH DOSE 0.5 ML SYRINGE (90662) IM ONE (09:00)
--- NOTE | 2017-05-11 09:08 | IPNPDOC ---
Subjective Date Seen The patient was seen on 05/11/17. Subjective Chief Complaint/HPI The patient is a 72-year-old female admitted with a reason for visit of Pyelonephritis. Events since last encounter No complaints other than a dull headache. No/fc. Urinating but urine is very cloudy Constitutional: Denies: Chills, Fever Pulmonary: Denies: Dyspnea, Cough Cardiovascular: Denies: Chest Pain, Palpitations, Orthopnea, Paroxysmal Noc. Dyspnea, Edema Gastrointestinal: Denies: Nausea, Vomiting, Abdominal Pain, Diarrhea, Constipation Objective Physical Examination General Exam: Positive: Alert, Cooperative, No Acute Distress ENT Exam: Positive: Mucous membr. moist/pink Chest Exam: Positive: Clear to auscultation, Normal air movement, Negative: Rales, Rhonchi, Wheezing Heart Exam: Positive: Rate Normal, Normal S1, Normal S2 Abdomen Exam: Positive: Normal bowel sounds, Soft, Negative: Tenderness Extremity Exam: Negative: Edema Skin Exam: Positive: Nl turgor and temperature Psych Exam: Positive: Oriented x 3 Assessment /Plan Problems (1) Extrinsic ureteral obstruction Status: Acute Problem Text: Likely caused by recurrence of lymphoma No IR available until next week I called [facility] to arrange transfer but there are no beds available currently and may not have bed available until late next week. (Spoke with Zandra in transfer Center Urology is on consult so I would like there opinion regarding need to arrange Nephrostomy sooner (We were unable to get ahold of Dr. jerry yesterday when we called) I suspect that since she is afebrile and clinically improving from the standpoint of her urinary infection, it will be ok to wait until next week if no bed availabel sooner Also, I called to [place] with Dr. Mariee (her Oncologist in [place]) Dr. Landrum was covering. e does not feel there is need for urgent treatment of her Recurrent Lymphoma. He recommends addressing her hydronephrosis with nephrostomy and then having patient follow-up with Dr. Mariee (2) Pyelonephritis Status: Acute Response to Treatment: Improving Problem Text: 05/11 - Afebrile last 25 hours. WBC normalized On IV Rocephin B/C and U/C pending. (3) Hypotension Status: Acute Problem Text: 05/11 - Bp stable but on low side IVF d/c'd yesterday Lasix re-ordered but not given yet No signs of fluid overload currently so I would hold off on LasixL Entresto on hold. (4) Systolic CHF, chronic Status: Chronic Response to Treatment: Stable Problem Text: Lasix and Entresto on hold for low BP Compensated currently (5) B-cell lymphoma Status: Chronic Problem Text: Follows with Oncology in [place] (Dr. Mariee) - see above (6) Atrial fibrillation Status: Chronic Response to Treatment: Stable Problem Text: 05/11 - Rate controlled on Metoprolol Pradaxa held for Nephrostomy, but may want to restart if not getting Nephrostomy right away D/W attending Plan/VTE VTE Prophylaxis Ordered?: Yes (TEDS/Sequentials Restart Pradaxa once stable per above) VS, I&O, 24H, Fishbone Vital Signs/I&O Vital Signs Date Time Temp Pulse Resp B/P (MAP) Pulse Ox O2 Delivery O2 Flow Rate FiO2 05/11/17 06:00 97.0 77 18 103/55 (71) 99 Room Air Laboratory Data 24H LABS Laboratory Tests 2 05/11/17 06:46: Nucleated Red Blood Cells % (auto) 0.0, Anion Gap 9, Glomerular Filtration Rate > 60.0, Blood Urea Nitrogen 17, Creatinine 0.58, Sodium Level 142, Potassium Level 3.6, Chloride Level 109H, Carbon Dioxide Level 24, Calcium Level 8.4L CBC/BMP Laboratory Tests 05/11/17 06:46 Red Blood Count 4.07, Mean Corpuscular Volume 95.6, Mean Corpuscular Hemoglobin 32.4, Mean Corpuscular Hemoglobin Concent 33.9, Red Cell Distribution Width 13.0 , Calcium Level 8.4 L Microbiology Microbiology 05/09/17 Blood Culture - Preliminary, Resulted 05/09/17 Blood Culture - Preliminary, Resulted No growth after 24 hours . All specim... 05/09/17 Urine Culture - Final, Complete Escherichia Coli ANKUR PLUNKETT PA-C May 11, 2017 09:08
[2017-05-11] MEDS: DIGOXIN 0.125 MG TAB PO SCH (09:35)
[2017-05-11] MEDS: ACETAMINOPHEN TAB 650MG DOSE (2X325MG) PO PRN (09:36)
[2017-05-11] MEDS: CALCIUM/VITAMIN D 500 MG TAB PO SCH ×2 (09:36→19:58)
[2017-05-11] MEDS: VITAMIN D 1,000 INTERNATIONAL UNITS TABLET PO SCH (09:36)
[2017-05-11 14:00] VITALS: BP 115/64
[2017-05-11] MEDS: CEFTRIAXONE SOD 2 GM in APPROPRIATE DILUENT 1 EA IV SCH (18:24)
[2017-05-11] MEDS: METOPROLOL SUCC (TopROL XL) 50MG **XL** TAB PO SCH (19:59)
[2017-05-11] MEDS ORDERED: diphenhydrAMINE 50 MG CAP PO PRN (21:30)
[2017-05-11 22:00] VITALS: BP 137/60
[2017-05-11] MEDS ORDERED: zolPIDEM TARTRATE 5 MG TAB PO ONE (23:30)
[2017-05-12 06:00] VITALS: BP 111/62
[2017-05-12 07:17] LABS: MEAN CORPUSCULAR HEMOGLOBIN 32.4 pg (27.0-33.0); MEAN CORPUSCULAR HGB CONC 33.8 g/dl (32.0-36.5); MEAN CORPUSCULAR VOLUME 96.1 fl (80.0-96.0); PLATELET COUNT, AUTOMATED 114 10^3/uL (150-450); RED CELL DISTRIBUTION WIDTH 13.2 % (11.5-14.5); WHITE BLOOD COUNT 4.8 10^3/uL (4.0-10.0)
[2017-05-12 07:34] LABS: ANION GAP 8 MEQ/L (8-16); BLOOD UREA NITROGEN 17 MG/DL (7-18); CALCIUM LEVEL 8.7 MG/DL (8.8-10.2); CARBON DIOXIDE LEVEL 26 MEQ/L (21-32); CHLORIDE LEVEL 107 MEQ/L (98-107); CREATININE FOR GFR 0.59 MG/DL (0.55-1.02); GLOMERULAR FILTRATION RATE > 60.0 (>39); GLUCOSE, FASTING 95 MG/DL (83-110); SODIUM LEVEL 141 MEQ/L (136-145)
--- NOTE | 2017-05-12 08:31 | IPNPDOC ---
Subjective Date Seen The patient was seen on 05/12/17. Subjective Chief Complaint/HPI The patient is a 72-year-old female admitted with a reason for visit of Pyelonephritis. Events since last encounter Reports a slight tickle-like cough this morning. No SOB Constitutional: Denies: Chills, Fever Pulmonary: Reports: Cough, Denies: Dyspnea Cardiovascular: Denies: Chest Pain, Palpitations, Orthopnea Gastrointestinal: Denies: Nausea, Vomiting, Abdominal Pain, Diarrhea, Constipation Objective Physical Examination General Exam: Positive: Alert, Cooperative, No Acute Distress ENT Exam: Positive: Mucous membr. moist/pink Chest Exam: Positive: Clear to auscultation, Normal air movement, Negative: Rales, Rhonchi, Wheezing Heart Exam: Positive: Rate Normal, Normal S1, Normal S2 Abdomen Exam: Positive: Normal bowel sounds, Soft, Negative: Tenderness Extremity Exam: Negative: Edema Skin Exam: Positive: Nl turgor and temperature Psych Exam: Positive: Oriented x 3 Assessment /Plan Problems (1) Extrinsic ureteral obstruction Status: Acute Problem Text: 05/12 - Likely caused by recurrence of lymphoma No IR available until next Monday - she is on the schedule to have this done here on Monday I called [facility] to arrange transfer but there are no beds available currently and may not have bed available until late next week. (Spoke with Zandra in transfer Center Also, I called to speak with Dr. Mariee (her Oncologist in [place]) Dr. Landrum was covering. He does not feel there is need for urgent treatment of her Recurrent Lymphoma. He recommends addressing her hydronephrosis with nephrostomy and then having patient follow-up with Dr. Mariee (2) Pyelonephritis Status: Acute Response to Treatment: Improving Problem Text: 05/12 - Afebrile WBC normalized On IV Rocephin B/C and U/C positive for E. Coli continue IV Abx for now due to + B/C (3) Systolic CHF, chronic Status: Chronic Response to Treatment: Stable Problem Text: 05/12 Lasix and Entresto on hold for low BP BP better. Slight cough today likely caused by development of mild fluid overload Restart Lasix today (4) Hypotension Status: Resolved Problem Text: 05/11 - Bp stable but on low side IVF d/c'd yesterday Lasix re-ordered but not given yet No signs of fluid overload currently so I would hold off on LasixL Entresto on hold. (5) B-cell lymphoma Status: Chronic Problem Text: Follows with Oncology in [place] (Dr. Mariee) - see above (6) Atrial fibrillation Status: Chronic Response to Treatment: Stable Problem Text: 05/11 - Rate controlled on Metoprolol Pradaxa held for Nephrostomy Plan/VTE VTE Prophylaxis Ordered?: Yes (TEDS/Sequentials Restart Pradaxa once stable per above) VS, I&O, 24H, Fishbone Vital Signs/I&O Vital Signs Date Time Temp Pulse Resp B/P (MAP) Pulse Ox O2 Delivery O2 Flow Rate FiO2 05/12/17 06:00 98.1 75 18 111/62 (78) 96 Room Air Laboratory Data 24H LABS Laboratory Tests 2 05/12/17 06:58: Nucleated Red Blood Cells % (auto) 0.0, Anion Gap 8, Glomerular Filtration Rate > 60.0, Blood Urea Nitrogen 17, Creatinine 0.59, Sodium Level 141, Potassium Level 4.0, Chloride Level 107, Carbon Dioxide Level 26, Calcium Level 8.7L CBC/BMP Laboratory Tests 05/12/17 06:58 Red Blood Count 4.10, Mean Corpuscular Volume 96.1 H, Mean Corpuscular Hemoglobin 32.4, Mean Corpuscular Hemoglobin Concent 33.8, Red Cell Distribution Width 13.2, Calcium Level 8.7 L Microbiology Microbiology 05/09/17 Blood Culture - Final, Complete Escherichia Coli 05/09/17 Blood Culture - Preliminary, Resulted No Growth after 48 hours. All Specime... 05/09/17 Urine Culture - Final, Complete Escherichia Coli ANKUR PLUNKETT PA-C May 12, 2017 08:31
[2017-05-12] MEDS: FUROSEMIDE 20 MG TAB PO SCH (09:08)
[2017-05-12] MEDS: CALCIUM/VITAMIN D 500 MG TAB PO SCH ×2 (09:09→20:02)
[2017-05-12] MEDS: DIGOXIN 0.125 MG TAB PO SCH (09:09)
[2017-05-12] MEDS: VITAMIN D 1,000 INTERNATIONAL UNITS TABLET PO SCH (09:09)
[2017-05-12 14:00] VITALS: BP 131/87
[2017-05-12] MEDS: CEFTRIAXONE SOD 2 GM in APPROPRIATE DILUENT 1 EA IV SCH (17:58)
[2017-05-12] MEDS: CEFDINIR 300 MG CAP (OMNICEF) PO SCH (20:02)
[2017-05-12] MEDS: NITROGLYCERIN 0.4 MG SUBL TABLET SL PRN (20:03)
[2017-05-12] MEDS: METOPROLOL SUCC (TopROL XL) 50MG **XL** TAB PO SCH (20:03)
[2017-05-12 22:00] VITALS: BP 118/62
[2017-05-13 06:00] VITALS: BP 123/61
[2017-05-13 07:02] LABS: MEAN CORPUSCULAR HEMOGLOBIN 31.9 pg (27.0-33.0); MEAN CORPUSCULAR HGB CONC 34.2 g/dl (32.0-36.5); MEAN CORPUSCULAR VOLUME 93.3 fl (80.0-96.0); PLATELET COUNT, AUTOMATED 126 10^3/uL (150-450); RED CELL DISTRIBUTION WIDTH 12.9 % (11.5-14.5); WHITE BLOOD COUNT 5.1 10^3/uL (4.0-10.0)
[2017-05-13 07:12] LABS: ANION GAP 9 MEQ/L (8-16); BLOOD UREA NITROGEN 13 MG/DL (7-18); CALCIUM LEVEL 8.6 MG/DL (8.8-10.2); CARBON DIOXIDE LEVEL 25 MEQ/L (21-32); CHLORIDE LEVEL 106 MEQ/L (98-107); CREATININE FOR GFR 0.68 MG/DL (0.55-1.02); GLOMERULAR FILTRATION RATE > 60.0 (>39); GLUCOSE, FASTING 87 MG/DL (83-110); SODIUM LEVEL 140 MEQ/L (136-145)
[2017-05-13] MEDS: CALCIUM/VITAMIN D 500 MG TAB PO SCH ×2 (08:37→20:49)
[2017-05-13] MEDS: CEFDINIR 300 MG CAP (OMNICEF) PO SCH ×2 (08:37→20:49)
[2017-05-13] MEDS: FUROSEMIDE 20 MG TAB PO SCH (08:38)
[2017-05-13] MEDS: DIGOXIN 0.125 MG TAB PO SCH (08:39)
[2017-05-13] MEDS: VITAMIN D 1,000 INTERNATIONAL UNITS TABLET PO SCH (08:39)
--- NOTE | 2017-05-13 12:05 | REP ---
REASON: Dyspnea. COMPARISON: 01/14/2016. Dual chamber bipolar pacemaker device status quo. Cardiomegaly status quo. Interstitial fibrotic change status quo. Increased basilar opacities right greater than left with minimal bilateral CP angle blunting. No change in the osseous structures. IMPRESSION: Fibrotic changes are seen with basilar predominance, however, I cannot completely discount the possibility of basilar pneumonia since there are increased basilar opacities today compared to the prior exam. This needs to be correlated clinically with appropriate followup. Cardiomegaly and other findings as described above. Signed by Fantasma Galeana DO 05/13/2017 08:53 A
[2017-05-13 14:00] VITALS: BP 117/73
--- NOTE | 2017-05-13 18:43 | IPNPDOC ---
Subjective Date Seen The patient was seen on 05/13/17. Subjective Chief Complaint/HPI The patient is a 72-year-old female admitted with a reason for visit of Pyelonephritis. Events since last encounter The dyspnea she experienced yesterday is improved. She is feeling well and would like to be home. Denies any complaints today. She feels the appearance of her urine is more normal. Tolerating her antibiotic well. Constitutional: Denies: Chills, Fever, Malaise ENT: Denies: Head Aches Skin: Denies: Rash Pulmonary: Denies: Dyspnea, Cough Cardiovascular: Denies: Chest Pain Gastrointestinal: Denies: Nausea, Vomiting, Diarrhea, Constipation Objective Physical Examination General Exam: Positive: Alert, Cooperative, No Acute Distress Eye Exam: Positive: Conjunctiva & lids normal, EOMI, Negative: Ptosis ENT Exam: Positive: Atraumatic Neck Exam: Positive: Supple, Negative: Lymphadenopathy Chest Exam: Positive: Clear to auscultation, Normal air movement, Negative: Rales, Rhonchi, Wheezing Heart Exam: Positive: Rate Normal, Normal S1, Normal S2 Abdomen Exam: Positive: Normal bowel sounds, Soft, Tenderness (mild tenderness to RUQ, right flank & CVA tenderness) Extremity Exam: Positive: Normal pulses, Negative: Cyanosis, Edema, Tenderness Skin Exam: Positive: Nl turgor and temperature Neuro Exam: Positive: Normal Speech, Strength at 5/5 X4 ext, Normal Tone, Sensation Intact Psych Exam: Positive: Mental status NL, Mood NL, Memory Intact, Oriented x 3 Assessment /Plan Problems (1) Extrinsic ureteral obstruction Status: Acute Problem Text: 05/13 -- plan remains nephrostomy on Saturday 05/12 - Likely caused by recurrence of lymphoma No IR available until next Monday - she is on the schedule to have this done here on Monday I called [facility] to arrange transfer but there are no beds available currently and may not have bed available until late next week. (Spoke with Zandra in transfer Center Also, I called to speak with Dr. Mariee (her Oncologist in [place]) Dr. Landrum was covering. He does not feel there is need for urgent treatment of her Recurrent Lymphoma. He recommends addressing her hydronephrosis with nephrostomy and then having patient follow-up with Dr. Mariee (2) Pyelonephritis Status: Acute Response to Treatment: Improving Problem Text: 05/13 -- switched to PO antibiotic last night and monitoring for signs of worsening infection. If all is well, plan to DC tomorrow with plan for outpatient procedure. (3) Systolic CHF, chronic Status: Chronic Response to Treatment: Stable Problem Text: 05/13 -- appears compensated (4) Hypotension Status: Resolved Problem Text: 05/11 - Bp stable but on low side IVF d/c'd yesterday Lasix re-ordered but not given yet No signs of fluid overload currently so I would hold off on LasixL Entresto on hold. (5) B-cell lymphoma Status: Chronic Problem Text: Follows with Oncology in [place] (Dr. Mariee) - see above (6) Atrial fibrillation Status: Chronic Response to Treatment: Stable Problem Text: 05/11 - Rate controlled on Metoprolol Pradaxa held for Nephrostomy Plan/VTE VTE Prophylaxis Ordered?: Yes (TEDS/Sequentials Restart Pradaxa once stable per above) VS, I&O, 24H, Fishbone Vital Signs/I&O Vital Signs Date Time Temp Pulse Resp B/P (MAP) Pulse Ox O2 Delivery O2 Flow Rate FiO2 05/13/17 14:00 97.6 94 17 117/73 (88) 97 Room Air I&O- Last 24 Hours up to 6 AM 05/14/17 06:00 Intake Total 1320 ml Output Total 1900 ml Balance -580 ml Laboratory Data 24H LABS Laboratory Tests 2 05/13/17 06:43: Nucleated Red Blood Cells % (auto) 0.0, Anion Gap 9, Glomerular Filtration Rate > 60.0, Blood Urea Nitrogen 13, Creatinine 0.68, Sodium Level 140, Potassium Level 4.0, Chloride Level 106, Carbon Dioxide Level 25, Calcium Level 8.6L CBC/BMP Laboratory Tests 05/13/17 06:43 Red Blood Count 4.20, Mean Corpuscular Volume 93.3, Mean Corpuscular Hemoglobin 31.9, Mean Corpuscular Hemoglobin Concent 34.2, Red Cell Distribution Width 12.9 , Calcium Level 8.6 L Microbiology Microbiology 05/09/17 Blood Culture - Final, Complete Escherichia Coli 05/09/17 Blood Culture - Preliminary, Resulted No Growth after 72 hours. All specime... 05/09/17 Urine Culture - Final, Complete Escherichia Coli EMERSON STEELE DO May 13, 2017 18:43
[2017-05-13 21:01] VITALS: BP 118/78
[2017-05-13] MEDS: METOPROLOL SUCC (TopROL XL) 50MG **XL** TAB PO SCH (21:01)
[2017-05-13] MEDS: NITROGLYCERIN 0.4 MG SUBL TABLET SL PRN (21:01)
[2017-05-13 22:00] VITALS: BP 118/78
[2017-05-14 06:00] VITALS: BP 115/58
[2017-05-14 06:56] LABS: MEAN CORPUSCULAR HEMOGLOBIN 31.8 pg (27.0-33.0); MEAN CORPUSCULAR HGB CONC 33.7 g/dl (32.0-36.5); MEAN CORPUSCULAR VOLUME 94.3 fl (80.0-96.0); PLATELET COUNT, AUTOMATED 116 10^3/uL (150-450); RED CELL DISTRIBUTION WIDTH 12.6 % (11.5-14.5); WHITE BLOOD COUNT 4.2 10^3/uL (4.0-10.0)
[2017-05-14 07:11] LABS: ANION GAP 8 MEQ/L (8-16); BLOOD UREA NITROGEN 11 MG/DL (7-18); CALCIUM LEVEL 8.9 MG/DL (8.8-10.2); CARBON DIOXIDE LEVEL 25 MEQ/L (21-32); CHLORIDE LEVEL 107 MEQ/L (98-107); CREATININE FOR GFR 0.64 MG/DL (0.55-1.02); GLOMERULAR FILTRATION RATE > 60.0 (>39); GLUCOSE, FASTING 98 MG/DL (83-110); SODIUM LEVEL 140 MEQ/L (136-145)
[2017-05-14] MEDS: VITAMIN D 1,000 INTERNATIONAL UNITS TABLET PO SCH (09:50)
[2017-05-14] MEDS: CALCIUM/VITAMIN D 500 MG TAB PO SCH (09:50)
[2017-05-14] MEDS: DIGOXIN 0.125 MG TAB PO SCH (09:55)
[2017-05-14] MEDS: CEFDINIR 300 MG CAP (OMNICEF) PO SCH (09:55)
[2017-05-14] MEDS: FUROSEMIDE 20 MG TAB PO SCH (09:55)
[2017-05-14] MEDS ORDERED: INFLUENZA VIRUS VACCINE HIGH DOSE 0.5 ML SYRINGE (90662) IM ONE (13:00)
[2017-05-14] MEDS ORDERED: CEFD300CAP PO (14:16)
--- NOTE | 2017-05-14 19:12 | DS.PDOC ---
Discharge Summary General Date of Admission May 09, 2017 at 17:27 Date of Discharge May 14, 2017 Discharge Summary PROCEDURES PERFORMED DURING STAY: [None]. ADMITTING DIAGNOSES: 1. Pyelonephritis 2. atrial fibrillation 3. defibrillator 4. Non-Hodgkin's lymphoma 5. Systolic CHF (EF 35-40% 2012 echo) 6. HTN DISCHARGE DIAGNOSES: 1. pyelonephritis 2. hydronephrosis and extrinsic ureteral obstruction 3. lymphadenopathy (pericaval, retroperitoneal, and aortocaval) 4. chronic systolic CHF 5. hypotension 6. B-cell lymphoma 7. atrial fibrillation 8. hypertension COMPLICATIONS/CHIEF COMPLAINT: Pyelonephritis. HISTORY OF PRESENT ILLNESS: 72-year-old female presents to the ED for right flank pain for the past few days. PMH includes systolic CHF with EF 35-40%, non- Hodgkin's lymphoma, HTN, A. fib on Pradaxa. Symptoms associated urgency, frequency, decreased urine output, dark urine, subjective fever of 102, chills, headaches, and decreased appetite. Denies sick contacts. Positive for recent travel as pt returned from [place] this Monday. Started on Entresto last week. No other changes in medications or daily habits. Patient denies all other ROS including chest pain/pressure, shortness of breath, wheezing, weight loss, hematuria. In the ED, patient was noted to have elevated WBC 12.6, positive UA, fever 100.7 , and hydronephrosis from adenopathy on CT of abdomen. Patient was given Tylenol and 1 dose of ceftriaxone HOSPITAL COURSE: Patient was seen by urology, who stated that she needed a nephrostomy tube placed by IR. Unfortunately, we did not have the staff to do this procedure until Monday, 05/15. An attempt was made to transfer the patient to [facility], but there was no availability, and we were told that it would take even longer to have it done there as an outpatient. She was scheduled for 05/15/17 in [place]. She had both blood and urine cultures grow layton-sensitive E. coli. Her UTI was treated with ceftriaxone x 3 days, and then she was converted to PO cefdinir. She remained afebrile on that for a day and a half. On 05/14 she was feeling better and very determined to go home, so she was discharged with instructions to return for her nephrostomy tube placement the next day. Her blood pressures were a bit soft the first couple days, and her Lasix had been held. She developed some dyspnea, which she identified as similar to the dyspnea that requires her to use her nitro patch a couple times/week. There were some mild basilar opacities on CXR. As she had just been restarted on Lasix that day, we monitored, and her symptoms improved. DISCHARGE MEDICATIONS: Please see below. ALLERGIES: Please see below. PHYSICAL EXAMINATION ON DISCHARGE: VITAL SIGNS: Please see below. GENERAL: elderly female in NAD HEENT: MMM NECK: supple CARDIOVASCULAR EXAMINATION: regular rate and irregular rhythm RESPIRATORY EXAMINATION: clear to auscultation bilat ABDOMINAL EXAMINATION: soft, nontender, nondistended EXTREMITIES: moves all 4, no edema SKIN: clean, dry, and intact LABORATORY DATA: Please see below. IMAGING: CT abdomen/pelvis 05/09/2017 1. Multiple pericaval, retroperitoneal and aortocaval adenopathy, predominately on the right contributing to new hydronephrosis, the nodes are unchanged. Extrarenal pelvis with obstruction is new compared to 2 weeks ago. No renal stone. There is a cyst in the kidney on the right, unchanged. The left kidney shows no hydronephrosis or stone. Nodes are unchanged. 2. The gallbladder shows some dependent gravel in its posterior margin, solid organs in the upper abdomen otherwise unremarkable. 3. Bladder with underfilling and a somewhat thickened wall. No mass or stone. No ureteral stone. No other significant or acute finding. CXR 05/12 showed Fibrotic changes are seen with basilar predominance, however, I cannot completely discount the possibility of basilar pneumonia since there are increased basilar opacities today compared to the prior exam. This needs to be correlated clinically with appropriate followup. Cardiomegaly and other findings as described above. PROGNOSIS: guarded ACTIVITY: [As tolerated]. DIET: no added salt DISCHARGE PLAN: home DISPOSITION: 01 Home, Self-Care. DISCHARGE INSTRUCTIONS: Take all medications as prescribed. Seek urgent medical attention for fever, pain during urination, inability to tolerate PO, or any other concerning symptoms. Follow up for nephrostomy appointment tomorrow. ITEMS TO FOLLOWUP ON ON OUTPATIENT: 1. lymphoma and abdominal/pelvic lymphadenopathy 2. hydronephrosis and need for nephrostomy 3. resolution of UTI 4. restarting Pradaxa as appropriate 5. angina (patient uses nitro patch a couple times weekly for dyspnea) 6. follow up CXR to ensure that opacities were simply related to volume overload DISCHARGE CONDITION: [Stable]. TIME SPENT ON DISCHARGE: Greater than 30 minutes. Vital Signs/I&Os Vital Signs Date Time Temp Pulse Resp B/P (MAP) Pulse Ox O2 Delivery O2 Flow Rate FiO2 05/14/17 14:00 Room Air 05/14/17 09:55 74 05/14/17 06:00 98.4 18 115/58 (77) 99 I&O- Last 24 Hours up to 6 AM 05/15/17 06:00 Intake Total 420 ml Output Total 850 ml Balance -430 ml Laboratory Data Labs 24H Laboratory Tests 2 05/14/17 06:42: Nucleated Red Blood Cells % (auto) 0.0, Anion Gap 8, Glomerular Filtration Rate > 60.0, Blood Urea Nitrogen 11, Creatinine 0.64, Sodium Level 140, Potassium Level 4.0, Chloride Level 107, Carbon Dioxide Level 25, Calcium Level 8.9 CBC/BMP Laboratory Tests 05/14/17 06:42 Red Blood Count 4.00, Mean Corpuscular Volume 94.3, Mean Corpuscular Hemoglobin 31.8, Mean Corpuscular Hemoglobin Concent 33.7, Red Cell Distribution Width 12.6 , Calcium Level 8.9 Microbiology Microbiology 05/09/17 Blood Culture - Final, Complete Escherichia Coli 05/09/17 Blood Culture - Final, Complete NO GROWTH AFTER 5 DAYS 05/09/17 Urine Culture - Final, Complete Escherichia Coli Discharge Medications Scheduled (Super B-Complex) 1 Tab Tab, 1 TAB PO DAILY, (Reported) Calcium/Vitamin D (Calcium 500 +D 500-400 mg-Unit) 1 Tab Tab, 1 TAB PO BID, ( Reported) Cefdinir (Cefdinir) 300 Mg Cap, 300 MG PO BID Cholecalciferol (Vitamin D3) 1,000 Unit Tab, 1,000 UNIT PO DAILY, (Reported) Digoxin (Digox) 0.125 Mg Tab, 0.125 MG PO DAILY, (Reported) Furosemide (Furosemide) 20 Mg Tab, 20 MG PO DAILY, (Reported) Metoprolol Succinate (Toprol Xl) 50 Mg Tab, 150 MG PO QHS, (Reported) Sacubitril/Valsartan (Entresto 24-26 mg) 1 Tab Tab, 1 TAB PO BID, (Reported) Vitamin E (Vitamin E) 1,000 Unit Cap, 1,000 UNIT PO QHS, (Reported) Scheduled PRN Nitroglycerin (Nitroglycerin) 0.4 Mg Sub, 0.4 MG SL Q5MP PRN for CHEST PAIN, ( Reported) Allergies Coded Allergies: Ciprofloxacin (Unverified Allergy, Unknown, 01/14/16) EMERSON STEELE DO May 14, 2017 19:12
[2017-05-15 14:40] VITALS: BP 116/71
== END 2017-05-14 14:30 | disposition home or self-care (01) | DRG 694 ==
LOC: M ED 12:46 → M ED INP 17:27 → M MS5PR 20:52
PROVIDERS: ADMIT Hospitalist; ATTEND Family Medicine
DX: N13.1 Hydronephrosis with ureteral stricture, not elsewhere classified (principal); C83.36 Diffuse large B-cell lymphoma, intrapelvic lymph nodes; I50.22 Chronic systolic (congestive) heart failure; N10 Acute pyelonephritis; I48.2 Chronic atrial fibrillation; I11.0 Hypertensive heart disease with heart failure; K21.9 Gastro-esophageal reflux disease without esophagitis; I95.9 Hypotension, unspecified; Z79.01 Long term (current) use of anticoagulants; Z95.810 Presence of automatic (implantable) cardiac defibrillator; Z79.899 Other long term (current) drug therapy; Z88.1 Allergy status to other antibiotic agents

== ENCOUNTER → 2017-05-09 | Outpatient (CLI) | payer OTHER ==
[~2017-05-09] MED LIST changes: +CEFD300CAP PO
[2017-05-09 15:03] LABS: ANION GAP 12 MEQ/L (8-16); BLOOD UREA NITROGEN 18 MG/DL (7-18); CARBON DIOXIDE LEVEL 25 MEQ/L (21-32); CHLORIDE LEVEL 102 MEQ/L (98-107); CREATININE FOR GFR 0.94 MG/DL (0.55-1.02); GLOMERULAR FILTRATION RATE > 60.0 (>39); GLUCOSE, FASTING 116 MG/DL (83-110); POTASSIUM SERUM 4.4 MEQ/L (3.5-5.1); SODIUM LEVEL 139 MEQ/L (136-145)
== END ==
LOC: M SMT 09:59
PROVIDERS: ATTEND Internal Medicine Cardiovascular Disease
DX: I42.0 Dilated cardiomyopathy (principal); I50.9 Heart failure, unspecified
CPT/HCPCS: 36415; 80048; 83880; G0463

== ENCOUNTER → 2017-05-09 | Outpatient (REF) | payer OTHER | LOC: M SFHCWAGY 13:29 | PROVIDERS: ATTEND Nurse Practitioner Women's Health | DX: R39.15 Urgency of urination (principal) ==

== ENCOUNTER → 2017-05-15 | Outpatient (CLI) | payer OTHER ==
[~2017-05-15] MED LIST changes: +CALCTAB75 PO; +CEFD300CAP PO; +ENTR1TAB PO; +ISOVUE-300 61% 50ML VIAL (Q9967) As Ordered ONE; +LR 1,000 ML IV SCH; +MIDAZOLAM INJ 2 MG/2 ML VIAL (J2250) As Ordered ONE; +NITR0.4S14 SL; +ONDANSETRON 4MG/2ML VIAL (J2405) IV PRN; +cefTRIAXone SOD 1 GM VIAL (J0696) As Ordered ONE; +fentaNYL 100 MCG/2 ML INJECTION (J3010) As Ordered ONE; +fentaNYL 100 MCG/2 ML INJECTION (J3010) IV PRN
--- NOTE | 2017-05-17 09:00 | REP ---
Right nephrostomy catheter insertion using ultrasound and fluoroscopic guidance. The procedure was performed under the direct supervision of Dr. Denise CLINICAL HISTORY: Right hydronephrosis PROCEDURE: Right nephrostomy drainage catheter insertion Medications: Rocephin 1 gm IV by anesthesia EBL: Less than 1 ml. FLUORO TIME: 1 minuteCONTRAST: 5 ml of Isovue 300DEVICE USED: 8-Luxembourger Skater APDL catheter Lot # [id number] The risks and benefits of the procedure were explained to the patient and informed consent was obtained. Anesthesia was present for sedation and pain control. The patient was brought into the interventional radiology suite. A time out procedure was performed. The patient was placed in the prone position . The right renal mid pole susie was localized using ultrasound guidance. The skin was prepped and draped in a sterile fashion. 1% Xylocaine was used as a local anesthetic. Using ultrasound guidance a 21-gauge needle was inserted and advanced into the collecting system. A 0.0 a guide wire was inserted advanced down the ureter. The needle was removed and a 5-Luxembourger dilator and sheath was inserted over the guide wire. The guidewire was removed and a 0.035 guidewire was inserted and advanced down the ureter. The sheath was removed and an 8-Luxembourger Skater APDL was inserted and advanced over the guide wire. The guidewire was removed and the distal loop of the nephrostomy drainage catheter was formed and locked in the renal pelvis. Contrast was injected, confirming satisfactory drainage catheter positioned. The drainage catheter exit site was covered with sterile dressing. The nephrostomy drainage catheter was flushed and connected to gravity drainage bag. The patient tolerated the procedure well and there were no immediate complications. This procedure was performed using fluoroscopy. Impression: Successful insertion of a nephrostomy urinary diversion tube on the right As discussed above. Plan: Routine catheter exchange and approximately 10-12 weeks or earlier if signs of tube dysfunction were to occur. Reviewed by GOYO Rodriguez 05/15/2017 04:36 PSigned by Mikhail Denise MD 05/17/2017 08:50 A
== END ==
LOC: M RAD 10:45
PROVIDERS: ATTEND Family Medicine
DX: N39.0 Urinary tract infection, site not specified (principal)

== ENCOUNTER → 2017-05-30 | Outpatient (CLI) | payer OTHER ==
[~2017-05-30] MED LIST changes: -ISOVUE-300 61% 50ML VIAL (Q9967) As Ordered ONE; -LR 1,000 ML IV SCH; -MIDAZOLAM INJ 2 MG/2 ML VIAL (J2250) As Ordered ONE; -ONDANSETRON 4MG/2ML VIAL (J2405) IV PRN; -cefTRIAXone SOD 1 GM VIAL (J0696) As Ordered ONE; -fentaNYL 100 MCG/2 ML INJECTION (J3010) As Ordered ONE; -fentaNYL 100 MCG/2 ML INJECTION (J3010) IV PRN
[2017-05-30 12:41] LABS: BASO % 0.2 % (0.0-1.0); EOS # 0.2 10^3/uL (0.0-0.50); EOS % 3.8 % (0.0-3.0); IMMATURE GRANULOCYTE % 0.2 % (0-0); LYMPH # 1.1 10^3/uL (1.5-4.5); LYMPH % 22.7 % (24.0-44.0); MEAN CORPUSCULAR HEMOGLOBIN 32.2 pg (27.0-33.0); MEAN CORPUSCULAR HGB CONC 33.4 g/dl (32.0-36.5); MEAN CORPUSCULAR VOLUME 96.3 fl (80.0-96.0); MONO # 0.6 10^3/uL (0.0-0.8); MONO % 12.2 % (0.0-5.0); NEUTROPHILS # 2.9 10^3/uL (1.8-7.7); NEUTROPHILS % 60.9 % (36.0-66.0); PLATELET COUNT, AUTOMATED 126 10^3/uL (150-450); RED CELL DISTRIBUTION WIDTH 12.8 % (11.5-14.5); WHITE BLOOD COUNT 4.8 10^3/uL (4.0-10.0)
[2017-05-30 12:51] LABS: INR 1.94
== END ==
LOC: M SMT 11:04
PROVIDERS: ATTEND Internal Medicine Hematology & Oncology
DX: Z79.01 Long term (current) use of anticoagulants (principal); C85.90 Non-Hodgkin lymphoma, unspecified, unspecified site

== ENCOUNTER 2017-06-06 18:20 | Emergency (ER) | payer OTHER ==
[2017-06-06] MEDS: NS 1,000 ML IV (20:30)
[2017-06-06 20:46] LABS: KETONE, URINE AUTO RFX NEGATIVE (NEGATIVE); RBC, URINE AUTO RFX TNTC /HPF (0-3); SPECIFIC GRAVITY UR AUTO RFX 1.017 (1.002-1.035); SQUAM EPITHELIAL CELL UR AURFX 1 /HPF (0-6)
[2017-06-06 20:53] LABS: LEUKOCYTE ESTERASE UR AUTO RFX 3+ (NEGATIVE); NITRITE, URINE AUTO RFX POSITIVE (NEGATIVE); WBC, URINE AUTO RFX TNTC /HPF (0-3)
[2017-06-06 21:24] LABS: BASO % 0.4 % (0.0-1.0); EOS # 0.2 10^3/uL (0.0-0.50); EOS % 4.3 % (0.0-3.0); HEMATOCRIT 45.1 % (36.0-47.0); HEMOGLOBIN 15.1 g/dl (12.0-16.0); IMMATURE GRANULOCYTE % 0.2 % (0-0); LYMPH # 1.5 10^3/uL (1.5-4.5); LYMPH % 25.9 % (24.0-44.0); MEAN CORPUSCULAR HGB CONC 33.5 g/dl (32.0-36.5); MEAN CORPUSCULAR VOLUME 95.6 fl (80.0-96.0); MONO # 0.7 10^3/uL (0.0-0.8); MONO % 12.8 % (0.0-5.0); NEUTROPHILS # 3.2 10^3/uL (1.8-7.7); NEUTROPHILS % 56.4 % (36.0-66.0); PLATELET COUNT, AUTOMATED 108 10^3/uL (150-450); RED BLOOD COUNT 4.72 10^6/uL (4.00-5.40); RED CELL DISTRIBUTION WIDTH 12.8 % (11.5-14.5); WHITE BLOOD COUNT 5.6 10^3/uL (4.0-10.0)
[2017-06-06 22:02] LABS: ALBUMIN 3.9 GM/DL (3.2-5.2); ALBUMIN/GLOBULIN RATIO 1.26 (1.00-1.93); ALKALINE PHOSPHATASE 76 U/L (45-117); ALT/SGPT 17 U/L (12-78); ANION GAP 6 MEQ/L (8-16); AST/SGOT 22 U/L (7-37); BILIRUBIN,TOTAL 0.5 MG/DL (0.2-1.0); BLOOD UREA NITROGEN 20 MG/DL (7-18); CARBON DIOXIDE LEVEL 31 MEQ/L (21-32); CHLORIDE LEVEL 105 MEQ/L (98-107); CREATININE FOR GFR 0.86 MG/DL (0.55-1.02); GLOMERULAR FILTRATION RATE > 60.0 (>39); GLUCOSE, FASTING 94 MG/DL (83-110); POTASSIUM SERUM 4.2 MEQ/L (3.5-5.1); SODIUM LEVEL 142 MEQ/L (136-145)
[2017-06-06] MEDS: BACTRIM 160MG/800MG DS TAB PO (22:15)
== END 2017-06-06 23:03 | disposition home or self-care (01) ==
LOC: M ED 18:20
DX: N39.0 Urinary tract infection, site not specified (principal); C85.90 Non-Hodgkin lymphoma, unspecified, unspecified site; Z79.01 Long term (current) use of anticoagulants; Z87.891 Personal history of nicotine dependence; Z95.0 Presence of cardiac pacemaker; I50.9 Heart failure, unspecified; K21.9 Gastro-esophageal reflux disease without esophagitis
CPT/HCPCS: 80053

== ENCOUNTER → 2017-06-06 | Outpatient (CLI) | payer OTHER | LOC: M WHC 09:57 | DX: Z12.31 Encounter for screening mammogram for malignant neoplasm of breast (principal); Z92.21 Personal history of antineoplastic chemotherapy; Z85.9 Personal history of malignant neoplasm, unspecified | CPT/HCPCS: 77067 ==

== ENCOUNTER 2017-06-17 10:53 | Emergency (ER) | payer OTHER ==
[2017-06-17 11:41] LABS: KETONE, URINE AUTO RFX NEGATIVE (NEGATIVE); LEUKOCYTE ESTERASE UR AUTO RFX TRACE (NEGATIVE); MUCUS, URINE RFX SMALL (NEGATIVE); NITRITE, URINE AUTO RFX NEGATIVE (NEGATIVE); RBC, URINE AUTO RFX 102 /HPF (0-3); SPECIFIC GRAVITY UR AUTO RFX 1.008 (1.002-1.035); SQUAM EPITHELIAL CELL UR AURFX 0 /HPF (0-6); WBC, URINE AUTO RFX 8 /HPF (0-3)
[2017-06-17 11:45] LABS: BASO % 0.1 % (0.0-1.0); HEMATOCRIT 44.7 % (36.0-47.0); HEMOGLOBIN 15.3 g/dl (12.0-16.0); IMMATURE GRANULOCYTE % 0.3 % (0-0); LYMPH # 1.8 10^3/uL (1.5-4.5); LYMPH % 15.9 % (24.0-44.0); MEAN CORPUSCULAR HEMOGLOBIN 32.3 pg (27.0-33.0); MEAN CORPUSCULAR HGB CONC 34.2 g/dl (32.0-36.5); MEAN CORPUSCULAR VOLUME 94.5 fl (80.0-96.0); MONO # 0.7 10^3/uL (0.0-0.8); MONO % 6.4 % (0.0-5.0); NEUTROPHILS # 8.9 10^3/uL (1.8-7.7); NEUTROPHILS % 77.3 % (36.0-66.0); PLATELET COUNT, AUTOMATED 176 10^3/uL (150-450); RED BLOOD COUNT 4.73 10^6/uL (4.00-5.40); RED CELL DISTRIBUTION WIDTH 12.8 % (11.5-14.5); WHITE BLOOD COUNT 11.5 10^3/uL (4.0-10.0)
[2017-06-17 11:55] LABS: INR 1.45
[2017-06-17 11:56] LABS: PARTIAL THROMBOPLASTIN TIME 33.3 SECONDS (26.8-37.9)
[2017-06-17 12:16] LABS: ANION GAP 6 MEQ/L (8-16); BLOOD UREA NITROGEN 22 MG/DL (7-18); CALCIUM LEVEL 9.5 MG/DL (8.8-10.2); CARBON DIOXIDE LEVEL 29 MEQ/L (21-32); CHLORIDE LEVEL 102 MEQ/L (98-107); CREATININE FOR GFR 0.94 MG/DL (0.55-1.02); GLOMERULAR FILTRATION RATE > 60.0 (>39); GLUCOSE, FASTING 85 MG/DL (83-110); POTASSIUM SERUM 4.4 MEQ/L (3.5-5.1); SODIUM LEVEL 137 MEQ/L (136-145)
== END 2017-06-17 13:17 | disposition home or self-care (01) ==
LOC: M ED 10:53
DX: R31.9 Hematuria, unspecified (principal); I51.9 Heart disease, unspecified; Z79.899 Other long term (current) drug therapy; Z79.52 Long term (current) use of systemic steroids; Z88.1 Allergy status to other antibiotic agents; Z93.6 Other artificial openings of urinary tract status; Z96.0 Presence of urogenital implants; Z87.442 Personal history of urinary calculi; Z87.19 Personal history of other diseases of the digestive system; Z87.891 Personal history of nicotine dependence; Z85.9 Personal history of malignant neoplasm, unspecified
CPT/HCPCS: 76775

== ENCOUNTER → 2017-06-28 | Outpatient (REF) | payer OTHER ==
[2017-06-28 10:55] LABS: BASO % 0.1 % (0.0-1.0); EOS % 0.1 % (0.0-3.0); HEMATOCRIT 44.6 % (36.0-47.0); HEMOGLOBIN 15.1 g/dl (12.0-16.0); IMMATURE GRANULOCYTE # 0.1 10^3/uL (0-0); IMMATURE GRANULOCYTE % 0.7 % (0-0); LYMPH # 1.3 10^3/uL (1.5-4.5); LYMPH % 10.1 % (24.0-44.0); MEAN CORPUSCULAR HEMOGLOBIN 31.7 pg (27.0-33.0); MEAN CORPUSCULAR HGB CONC 33.9 g/dl (32.0-36.5); MEAN CORPUSCULAR VOLUME 93.5 fl (80.0-96.0); MONO # 0.6 10^3/uL (0.0-0.8); MONO % 4.8 % (0.0-5.0); NEUTROPHILS # 10.5 10^3/uL (1.8-7.7); NEUTROPHILS % 84.2 % (36.0-66.0); PLATELET COUNT, AUTOMATED 113 10^3/uL (150-450); RED BLOOD COUNT 4.77 10^6/uL (4.00-5.40); RED CELL DISTRIBUTION WIDTH 13.3 % (11.5-14.5); WHITE BLOOD COUNT 12.5 10^3/uL (4.0-10.0)
== END ==
LOC: M SFHCPLAZ 09:19
DX: R53.83 Other fatigue (principal)
CPT/HCPCS: 85025

== ENCOUNTER → 2017-06-28 | Outpatient (CLI) | payer OTHER | LOC: M SMT 10:32 | DX: R53.83 Other fatigue (principal); R05 Cough; Z95.0 Presence of cardiac pacemaker | CPT/HCPCS: 71046; 85025 ==

== ENCOUNTER 2017-08-06 14:17 | Emergency (ER) | payer OTHER ==
[2017-08-06] MEDS ORDERED: ACETAMINOPHEN TAB 650MG DOSE (2X325MG) PO ×3 (15:15)
[2017-08-06 15:38] LABS: BASO # 0.1 10^3/uL (0.0-0.2); EOS # 0.1 10^3/uL (0.0-0.50); EOS % 2.2 % (0.0-3.0); HEMATOCRIT 40.8 % (36.0-47.0); HEMOGLOBIN 13.9 g/dl (12.0-16.0); IMMATURE GRANULOCYTE % 0.4 % (0-3.0); LYMPH # 0.6 10^3/uL (1.5-4.5); LYMPH % 12.5 % (24.0-44.0); MEAN CORPUSCULAR HEMOGLOBIN 32.2 pg (27.0-33.0); MEAN CORPUSCULAR HGB CONC 34.1 g/dl (32.0-36.5); MEAN CORPUSCULAR VOLUME 94.4 fl (80.0-96.0); MONO # 0.9 10^3/uL (0.0-0.8); MONO % 17.3 % (0.0-5.0); NEUTROPHILS # 3.4 10^3/uL (1.8-7.7); NEUTROPHILS % 66.6 % (36.0-66.0); PLATELET COUNT, AUTOMATED 131 10^3/uL (150-450); RED BLOOD COUNT 4.32 10^6/uL (4.00-5.40); RED CELL DISTRIBUTION WIDTH 15.2 % (11.5-14.5); WHITE BLOOD COUNT 5.1 10^3/uL (4.0-10.0)
[2017-08-06 15:40] LABS: KETONE, URINE AUTO RFX NEGATIVE (NEGATIVE); LEUKOCYTE ESTERASE UR AUTO RFX 1+ (NEGATIVE); MUCUS, URINE RFX SMALL (NEGATIVE); NITRITE, URINE AUTO RFX NEGATIVE (NEGATIVE); RBC, URINE AUTO RFX 4 /HPF (0-3); SPECIFIC GRAVITY UR AUTO RFX 1.003 (1.002-1.035); SQUAM EPITHELIAL CELL UR AURFX 0 /HPF (0-6); WBC, URINE AUTO RFX 49 /HPF (0-3)
[2017-08-06 15:46] LABS: INR 1.21; PROTHROMBIN TIME 15.5 SECONDS (12.4-14.5)
[2017-08-06 16:00] LABS: LACTIC ACID SEPSIS PROTOCOL 1.1 MMOL/L (0.4-2.0)
[2017-08-06 16:00] LABS: ALBUMIN 3.7 GM/DL (3.2-5.2); ALBUMIN/GLOBULIN RATIO 1.54 (1.00-1.93); ALKALINE PHOSPHATASE 75 U/L (45-117); ALT/SGPT 21 U/L (12-78); ANION GAP 7 MEQ/L (8-16); AST/SGOT 20 U/L (7-37); BILIRUBIN,DIRECT 0.2 MG/DL (0.0-0.2); BILIRUBIN,TOTAL 0.6 MG/DL (0.2-1.0); BLOOD UREA NITROGEN 11 MG/DL (7-18); CALCIUM LEVEL 8.6 MG/DL (8.8-10.2); CARBON DIOXIDE LEVEL 27 MEQ/L (21-32); CHLORIDE LEVEL 109 MEQ/L (98-107); CREATININE FOR GFR 0.65 MG/DL (0.55-1.30); GLOMERULAR FILTRATION RATE > 60.0 (>39); GLUCOSE, FASTING 86 MG/DL (70-100); LIPASE 87 U/L (73-393); POTASSIUM SERUM 3.9 MEQ/L (3.5-5.1); SODIUM LEVEL 143 MEQ/L (136-145); TOTAL PROTEIN 6.1 GM/DL (6.4-8.2)
[2017-08-06 16:12] LABS: DIGOXIN LEVEL 0.4 NG/ML (0.5-2.0)
[2017-08-06] MEDS: CEFTRIAXONE SOD 1 GM in APPROPRIATE DILUENT 1 EA IV ×3 (16:34)
== END 2017-08-06 17:46 | disposition home or self-care (01) ==
LOC: M ED 14:17
DX: N39.0 Urinary tract infection, site not specified (principal); I50.9 Heart failure, unspecified; Z87.891 Personal history of nicotine dependence; Z79.899 Other long term (current) drug therapy; Z88.1 Allergy status to other antibiotic agents
CPT/HCPCS: 80162; J0696

== ENCOUNTER → 2017-08-21 | Outpatient (CLI) | payer OTHER ==
[~2017-08-21] MED LIST changes: -ALDA25TA2 OR; -AUGM500T34 PO; +BACTRIM 160MG/800MG DS TAB As Ordered; -BENI20TA11 OR; -BETA80TA OR; -CALCTAB75 PO; -CEFD300CAP PO; -COMBAER6 INH; -DIGO0.126 OR; -DIGO0.127 PO; -ENTR1TAB PO; -FURO20TA2 OR; -FURO20TA2 PO; +ISOVUE-300 61% 50ML VIAL (Q9967) As Ordered; -LASI20TA OR; +LIDOCAINE 2% MDV 20 ML VIAL As Ordered; -LOSA50TA20 PO; -NITR0.4D6 TD; -NITR0.4S14 SL; -NITRODUR; -NITROGLYCERIN TOP; -OMEP20CA3 PO; -OMEP20TA7 OR; -PRAD150C PO; -SOTA80TA2 OR; -SUPE1TAB PO; -TOPR50TA PO; -TYLE1TAB5 PO; -VIT D 2000 PO; -VITA-122 PO; -VITA-56 OR; -VITA10005 PO; -VITAMIN B COMPLE1 OR; -pradaxa PO
== END ==
LOC: M RADPRO 12:20
DX: N15.9 Renal tubulo-interstitial disease, unspecified (principal); N13.30 Unspecified hydronephrosis; Z95.0 Presence of cardiac pacemaker; Z88.1 Allergy status to other antibiotic agents; Z79.899 Other long term (current) drug therapy
CPT/HCPCS: 50435

== ENCOUNTER → 2017-09-01 | Outpatient (CLI) | payer OTHER ==
[2017-09-01 17:59] LABS: HEMATOCRIT 42.8 % (36.0-47.0); HEMOGLOBIN 13.8 g/dl (12.0-15.5); MEAN CORPUSCULAR HGB CONC 32.2 g/dl (32.0-36.5); MEAN CORPUSCULAR VOLUME 99.3 fl (80.0-96.0); PLATELET COUNT, AUTOMATED 117 10^3/uL (150-450); RED BLOOD COUNT 4.31 10^6/uL (4.00-5.40); RED CELL DISTRIBUTION WIDTH 14.4 % (11.5-14.5); WHITE BLOOD COUNT 3.4 10^3/uL (4.0-10.0)
[2017-09-01 18:08] LABS: ANION GAP 4 MEQ/L (8-16); BLOOD UREA NITROGEN 15 MG/DL (7-18); CALCIUM LEVEL 9.1 MG/DL (8.8-10.2); CARBON DIOXIDE LEVEL 32 MEQ/L (21-32); CHLORIDE LEVEL 106 MEQ/L (98-107); CREATININE FOR GFR 0.74 MG/DL (0.55-1.30); GLOMERULAR FILTRATION RATE > 60.0 (>39); GLUCOSE, FASTING 120 MG/DL (70-100); POTASSIUM SERUM 4.2 MEQ/L (3.5-5.1); SODIUM LEVEL 142 MEQ/L (136-145)
== END ==
LOC: M SMT 13:01
DX: I25.10 Atherosclerotic heart disease of native coronary artery without angina pectoris (principal); I48.2 Chronic atrial fibrillation; I50.9 Heart failure, unspecified
CPT/HCPCS: 80048

== ENCOUNTER 2017-09-14 00:58 | Inpatient (IN) | payer OTHER ==
[2017-09-14 01:59] LABS: EOS # 0.1 10^3/uL (0.0-0.50); EOS % 3.1 % (0.0-3.0); HEMATOCRIT 39.3 % (36.0-47.0); HEMOGLOBIN 13.5 g/dl (12.0-15.5); IMMATURE GRANULOCYTE % 0.8 % (0-3.0); LYMPH # 0.3 10^3/uL (1.5-4.5); LYMPH % 6.8 % (24.0-44.0); MEAN CORPUSCULAR HEMOGLOBIN 32.8 pg (27.0-33.0); MEAN CORPUSCULAR HGB CONC 34.4 g/dl (32.0-36.5); MEAN CORPUSCULAR VOLUME 95.4 fl (80.0-96.0); MONO # 0.8 10^3/uL (0.0-0.8); MONO % 20.7 % (0.0-5.0); NEUTROPHILS # 2.6 10^3/uL (1.8-7.7); NEUTROPHILS % 67.6 % (36.0-66.0); RED BLOOD COUNT 4.12 10^6/uL (4.00-5.40); RED CELL DISTRIBUTION WIDTH 13.2 % (11.5-14.5); WHITE BLOOD COUNT 3.8 10^3/uL (4.0-10.0)
[2017-09-14 02:37] LABS: PLATELET COUNT, AUTOMATED 84 10^3/uL (150-450); POS COUNT POS FLAG; POSITIVE DIFF POS FLAG
[2017-09-14 02:38] LABS: IMMATURE PLATELET FRACTION % 2.2 % (0.0-9.6)
[2017-09-14] MEDS ORDERED: HEPARIN 25,000 UNITS/250 ML D5W BAG (100 UNITS/ML) As Ordered (04:18)
[2017-09-14 04:28] LABS: ANION GAP 5 MEQ/L (8-16); BLOOD UREA NITROGEN 15 MG/DL (7-18); CALCIUM LEVEL 8.9 MG/DL (8.8-10.2); CARBON DIOXIDE LEVEL 32 MEQ/L (21-32); CHLORIDE LEVEL 101 MEQ/L (98-107); CREATININE FOR GFR 0.85 MG/DL (0.55-1.30); DIGOXIN LEVEL 0.4 NG/ML (0.5-2.0); GLOMERULAR FILTRATION RATE > 60.0 (>39); GLUCOSE, FASTING 140 MG/DL (70-100); POTASSIUM SERUM 3.2 MEQ/L (3.5-5.1); SODIUM LEVEL 138 MEQ/L (136-145)
[2017-09-14] MEDS ORDERED: MORPHINE 4 MG/ML 1ML VIAL/SYRINGE (J2270) IV (04:30)
[2017-09-14] MEDS ORDERED: ONDANSETRON 4MG/2ML VIAL (J2405) IV ×2 (04:30→17:30)
[2017-09-14 04:33] LABS: INR 1.12; PROTHROMBIN TIME 14.6 SECONDS (12.4-14.5)
[2017-09-14 04:34] LABS: PARTIAL THROMBOPLASTIN TIME 28.1 SECONDS (26.8-37.9)
[2017-09-14] MEDS: HEPARIN DRIP 25,000 UNITS in APPROPRIATE DILUENT 1 EA IV ×2 (04:42→13:17)
[2017-09-14] MEDS: NS 1,000 ML IV ×3 (05:30→22:00)
[2017-09-14] MEDS ORDERED: fentaNYL 100 MCG/2 ML INJECTION (J3010) As Ordered ×3 (08:46→17:49)
[2017-09-14] MEDS ORDERED: ISOVUE-300 61% 50ML VIAL (Q9967) As Ordered (08:47)
[2017-09-14] MEDS ORDERED: HEPARIN 1,000 UNITS/ML 10ML VIAL (FOR RADIOLOGY& DIALYSIS ONLY) As Ordered (08:47)
[2017-09-14] MEDS ORDERED: MIDAZOLAM INJ 2 MG/2 ML VIAL (J2250) As Ordered ×2 (08:47→16:46)
[2017-09-14] MEDS: DOCUSATE SODIUM 100 MG CAP PO ×2 (09:00→21:49)
[2017-09-14 12:09] LABS: PARTIAL THROMBOPLASTIN TIME 183.4 SECONDS (26.8-37.9)
[2017-09-14] MEDS ORDERED: BUPIVACAINE HCL 0.5% 30 ML VIAL As Ordered (16:04)
[2017-09-14] MEDS ORDERED: LIDOCAINE 1% SDV INJ 30 ML VIAL As Ordered (16:04)
[2017-09-14] MEDS: LIDOCAINE 1% SDV INJ 30 ML VIAL As Ordered (16:05)
[2017-09-14] MEDS: ceFAZolin 2 GM/D5W 50 ML IV BAG (J0690 PER 500MG) As Ordered (16:31)
[2017-09-14] MEDS: HEPARIN SOD (PORCINE) 5000 UNITS/ML VIAL As Ordered (16:42)
[2017-09-14] MEDS ORDERED: ONDANSETRON 4MG/2ML VIAL (J2405) As Ordered (16:46)
[2017-09-14] MEDS ORDERED: PROPOFOL 200 MG/20 ML VIAL As Ordered (16:46)
[2017-09-14] MEDS ORDERED: HEPARIN SOD (PORCINE) 5000 UNITS/ML VIAL As Ordered (16:46)
[2017-09-14] MEDS ORDERED: HYDROmorphone HCL 1 MG/ML SYRINGE (J1170) IV (17:30)
[2017-09-14] MEDS: fentaNYL 100 MCG/2 ML INJECTION (J3010) IV ×2 (17:55→18:00)
[2017-09-14] MEDS ORDERED: PERCOCET 5MG/325MG TAB As Ordered (20:43)
[2017-09-14] MEDS: PERCOCET 5MG/325MG TAB PO (20:45)
[2017-09-14 20:49] LABS: PARTIAL THROMBOPLASTIN TIME > 240.0 SECONDS (26.8-37.9)
[2017-09-14] MEDS: LR 1,000 ML IV (21:00)
[2017-09-15 04:55] LABS: PARTIAL THROMBOPLASTIN TIME > 240.0 SECONDS (26.8-37.9)
[2017-09-15] MEDS: NS 1,000 ML IV (05:41)
[2017-09-15 06:14] LABS: HEMATOCRIT 34.7 % (36.0-47.0); HEMOGLOBIN 11.4 g/dl (12.0-15.5); MEAN CORPUSCULAR HEMOGLOBIN 31.8 pg (27.0-33.0); MEAN CORPUSCULAR HGB CONC 32.9 g/dl (32.0-36.5); MEAN CORPUSCULAR VOLUME 96.7 fl (80.0-96.0); RED BLOOD COUNT 3.59 10^6/uL (4.00-5.40); RED CELL DISTRIBUTION WIDTH 13.3 % (11.5-14.5)
[2017-09-15 06:26] LABS: PLATELET COUNT, AUTOMATED 75 10^3/uL (150-450)
[2017-09-15 06:27] LABS: IMMATURE PLATELET FRACTION % 1.5 % (0.0-9.6); PLATELET F 1.2
[2017-09-15 07:41] LABS: ANION GAP 7 MEQ/L (8-16); BLOOD UREA NITROGEN 9 MG/DL (7-18); CALCIUM LEVEL 8.3 MG/DL (8.8-10.2); CARBON DIOXIDE LEVEL 27 MEQ/L (21-32); CHLORIDE LEVEL 110 MEQ/L (98-107); CREATININE FOR GFR 0.65 MG/DL (0.55-1.30); GLOMERULAR FILTRATION RATE > 60.0 (>39); GLUCOSE, FASTING 92 MG/DL (70-100); POTASSIUM SERUM 3.7 MEQ/L (3.5-5.1); SODIUM LEVEL 144 MEQ/L (136-145)
[2017-09-15] MEDS: DOCUSATE SODIUM 100 MG CAP PO ×2 (08:41→20:03)
[2017-09-15] MEDS: PREVNAR 13 VACCINE SYRINGE (CPT CODE:90670) IM (09:00)
[2017-09-15 11:35] LABS: PARTIAL THROMBOPLASTIN TIME 39.4 SECONDS (26.8-37.9)
[2017-09-15] MEDS: HEPARIN DRIP 25,000 UNITS in APPROPRIATE DILUENT 1 EA IV (12:36)
[2017-09-15 12:45] LABS: INR 1.31; PROTHROMBIN TIME 16.6 SECONDS (12.4-14.5)
[2017-09-15 12:46] LABS: PARTIAL THROMBOPLASTIN TIME 37.1 SECONDS (26.8-37.9)
[2017-09-15] MEDS: HEPARIN SOD (PORCINE) 5000 UNITS/ML VIAL IV (13:00)
[2017-09-15] MEDS ORDERED: PREVNAR 13 VACCINE SYRINGE (CPT CODE:90670) IM (13:15)
[2017-09-15 18:58] LABS: PARTIAL THROMBOPLASTIN TIME 94.3 SECONDS (26.8-37.9)
[2017-09-16] MEDS: SODIUM CHLORIDE 0.9% INJ 10 ML SYR IV ×4 (01:05→09:28)
[2017-09-16 01:48] LABS: PARTIAL THROMBOPLASTIN TIME 55.3 SECONDS (26.8-37.9)
[2017-09-16] MEDS: HEPARIN SOD (PORCINE) 5000 UNITS/ML VIAL IV (02:46)
[2017-09-16 06:12] LABS: HEMATOCRIT 28.8 % (36.0-47.0); HEMOGLOBIN 9.8 g/dl (12.0-15.5); RED BLOOD COUNT 2.97 10^6/uL (4.00-5.40); RED CELL DISTRIBUTION WIDTH 13.3 % (11.5-14.5); WHITE BLOOD COUNT 4.6 10^3/uL (4.0-10.0)
[2017-09-16 06:20] LABS: PLATELET COUNT, AUTOMATED 60 10^3/uL (150-450)
[2017-09-16 06:32] LABS: ANION GAP 6 MEQ/L (8-16); BLOOD UREA NITROGEN 7 MG/DL (7-18); CALCIUM LEVEL 7.9 MG/DL (8.8-10.2); CARBON DIOXIDE LEVEL 28 MEQ/L (21-32); CHLORIDE LEVEL 110 MEQ/L (98-107); CREATININE FOR GFR 0.54 MG/DL (0.55-1.30); GLOMERULAR FILTRATION RATE > 60.0 (>39); GLUCOSE, FASTING 96 MG/DL (70-100); POTASSIUM SERUM 3.3 MEQ/L (3.5-5.1); SODIUM LEVEL 144 MEQ/L (136-145)
[2017-09-16] MEDS: DOCUSATE SODIUM 100 MG CAP PO ×2 (09:28→19:30)
[2017-09-16 11:54] LABS: PARTIAL THROMBOPLASTIN TIME 91.7 SECONDS (26.8-37.9)
[2017-09-16 16:33] LABS: HEMATOCRIT 30.9 % (36.0-47.0); HEMOGLOBIN 10.4 g/dl (12.0-15.5)
[2017-09-16 16:45] LABS: PARTIAL THROMBOPLASTIN TIME 58.6 SECONDS (26.8-37.9)
[2017-09-16] MEDS: RIVAROXABAN 20 MG TAB (XARELTO) PO (17:28)
[2017-09-16] MEDS: DIGOXIN 0.125 MG TAB PO (17:29)
[2017-09-17 05:36] LABS: HEMATOCRIT 27.1 % (36.0-47.0); HEMOGLOBIN 9.2 g/dl (12.0-15.5); MEAN CORPUSCULAR HEMOGLOBIN 32.4 pg (27.0-33.0); MEAN CORPUSCULAR HGB CONC 33.9 g/dl (32.0-36.5); MEAN CORPUSCULAR VOLUME 95.4 fl (80.0-96.0); RED BLOOD COUNT 2.84 10^6/uL (4.00-5.40); WHITE BLOOD COUNT 3.8 10^3/uL (4.0-10.0)
[2017-09-17 05:40] LABS: PLATELET COUNT, AUTOMATED 55 10^3/uL (150-450)
[2017-09-17 05:56] LABS: ANION GAP 3 MEQ/L (8-16); BLOOD UREA NITROGEN 7 MG/DL (7-18); CALCIUM LEVEL 7.9 MG/DL (8.8-10.2); CARBON DIOXIDE LEVEL 29 MEQ/L (21-32); CHLORIDE LEVEL 108 MEQ/L (98-107); CREATININE FOR GFR 0.47 MG/DL (0.55-1.30); GLOMERULAR FILTRATION RATE > 60.0 (>39); GLUCOSE, FASTING 95 MG/DL (70-100); POTASSIUM SERUM 3.5 MEQ/L (3.5-5.1); SODIUM LEVEL 140 MEQ/L (136-145)
[2017-09-17] MEDS: SODIUM CHLORIDE 0.9% INJ 10 ML SYR IV ×2 (09:00→09:48)
[2017-09-17 09:45] LABS: APPEARANCE, URINE HAZY (CLEAR); BACTERIA, URINE AUTO NEGATIVE (NEGATIVE); BILIRUBIN, URINE AUTO NEGATIVE (NEGATIVE); BLOOD, URINE BLOOD 2+ (NEGATIVE); CALCIUM OXALATE CRYSTALS SMALL; COLOR, URINE YELLOW (YELLOW); GLUCOSE, URINE (UA) AUTO NEGATIVE (NEGATIVE); KETONE, URINE AUTO NEGATIVE (NEGATIVE); LEUKOCYTE ESTERASE, URINE AUTO TRACE (NEGATIVE); MUCUS, URINE SMALL (NEGATIVE); NITRITE, URINE AUTO NEGATIVE (NEGATIVE); PROTEIN, URINE AUTO NEGATIVE (NEGATIVE); RBC, URINE AUTO 38 /HPF (0-3); SPECIFIC GRAVITY URINE AUTO 1.014 (1.002-1.035); SQUAMOUS EPITHELIAL CELL UR AU 2 /HPF (0-6); TRANSITIONAL EPITHELIAL AUTO 1 /HPF; UROBILINOGEN, URINE AUTO 0.2 mg/dL (0.0-2.0); WBC, URINE AUTO 10 /HPF (0-3)
[2017-09-17] MEDS: DOCUSATE SODIUM 100 MG CAP PO ×2 (09:48→19:35)
[2017-09-17] MEDS: DIGOXIN 0.125 MG TAB PO (09:48)
[2017-09-17 14:41] LABS: HEMATOCRIT 27.2 % (36.0-47.0); HEMOGLOBIN 9.3 g/dl (12.0-15.5)
[2017-09-17] MEDS ORDERED: ISOVUE-370 76% 100ML VIAL (Q9967) As Ordered (16:07)
[2017-09-17] MEDS: RIVAROXABAN 20 MG TAB (XARELTO) PO (17:11)
[2017-09-17] MEDS: PERCOCET 5MG/325MG TAB PO ×2 (17:13→21:25)
[2017-09-18] MEDS: PERCOCET 5MG/325MG TAB PO ×3 (05:54→15:25)
[2017-09-18 06:01] LABS: HEMATOCRIT 25.9 % (36.0-47.0); HEMOGLOBIN 8.7 g/dl (12.0-15.5); MEAN CORPUSCULAR HEMOGLOBIN 32.6 pg (27.0-33.0); MEAN CORPUSCULAR HGB CONC 33.6 g/dl (32.0-36.5); RED BLOOD COUNT 2.67 10^6/uL (4.00-5.40); RED CELL DISTRIBUTION WIDTH 13.2 % (11.5-14.5); WHITE BLOOD COUNT 3.6 10^3/uL (4.0-10.0)
[2017-09-18 06:05] LABS: IMMATURE PLATELET FRACTION % 3.5 % (0.0-9.6); PLATELET COUNT, AUTOMATED 58 10^3/uL (150-450)
[2017-09-18] MEDS: SODIUM CHLORIDE 0.9% INJ 10 ML SYR IV ×3 (06:05→09:53)
[2017-09-18 06:33] LABS: ANION GAP 4 MEQ/L (8-16); BLOOD UREA NITROGEN 7 MG/DL (7-18); CALCIUM LEVEL 8.2 MG/DL (8.8-10.2); CARBON DIOXIDE LEVEL 30 MEQ/L (21-32); CHLORIDE LEVEL 108 MEQ/L (98-107); CREATININE FOR GFR 0.46 MG/DL (0.55-1.30); GLOMERULAR FILTRATION RATE > 60.0 (>39); GLUCOSE, FASTING 81 MG/DL (70-100); POTASSIUM SERUM 3.7 MEQ/L (3.5-5.1); SODIUM LEVEL 142 MEQ/L (136-145)
[2017-09-18] MEDS: DOCUSATE SODIUM 100 MG CAP PO ×2 (09:54→21:34)
[2017-09-18] MEDS: DIGOXIN 0.125 MG TAB PO (09:54)
[2017-09-18 12:22] LABS: HEMATOCRIT 27.8 % (36.0-47.0); HEMOGLOBIN 9.4 g/dl (12.0-15.5)
[2017-09-18 18:35] LABS: RETIC HEMOGLOBIN EQUIVALENT 35.8 pg (24-36); RETICULOCYTE # 56.3 10^9/L (17-77)
[2017-09-18 18:47] LABS: INR 1.73; PROTHROMBIN TIME 20.7 SECONDS (12.4-14.5)
[2017-09-18 20:10] LABS: HEMATOCRIT 28.4 % (36.0-47.0); HEMOGLOBIN 9.5 g/dl (12.0-15.5)
[2017-09-19] MEDS: ACETAMINOPHEN TAB 650MG DOSE (2X325MG) PO (01:43)
[2017-09-19] MEDS: SODIUM CHLORIDE 0.9% INJ 10 ML SYR IV ×5 (01:44→19:29)
[2017-09-19 01:46] LABS: HEMATOCRIT 29.2 % (36.0-47.0); HEMOGLOBIN 9.8 g/dl (12.0-15.5)
[2017-09-19 06:32] LABS: HEMATOCRIT 26.3 % (36.0-47.0); HEMOGLOBIN 8.9 g/dl (12.0-15.5); MEAN CORPUSCULAR HEMOGLOBIN 32.5 pg (27.0-33.0); MEAN CORPUSCULAR HGB CONC 33.8 g/dl (32.0-36.5); RED BLOOD COUNT 2.74 10^6/uL (4.00-5.40); RED CELL DISTRIBUTION WIDTH 13.1 % (11.5-14.5); WHITE BLOOD COUNT 4.5 10^3/uL (4.0-10.0)
[2017-09-19 06:37] LABS: PLATELET COUNT, AUTOMATED 74 10^3/uL (150-450)
[2017-09-19 06:39] LABS: IMMATURE PLATELET FRACTION % 2.5 % (0.0-9.6); PLATELET F 70
[2017-09-19 06:48] LABS: ANION GAP 4 MEQ/L (8-16); BLOOD UREA NITROGEN 9 MG/DL (7-18); CALCIUM LEVEL 8.2 MG/DL (8.8-10.2); CARBON DIOXIDE LEVEL 29 MEQ/L (21-32); CHLORIDE LEVEL 107 MEQ/L (98-107); CREATININE FOR GFR 0.54 MG/DL (0.55-1.30); GLOMERULAR FILTRATION RATE > 60.0 (>39); GLUCOSE, FASTING 106 MG/DL (70-100); POTASSIUM SERUM 4.1 MEQ/L (3.5-5.1); SODIUM LEVEL 140 MEQ/L (136-145)
[2017-09-19] MEDS: DOCUSATE SODIUM 100 MG CAP PO ×2 (09:10→20:05)
[2017-09-19] MEDS: DIGOXIN 0.125 MG TAB PO (09:11)
[2017-09-19] MEDS: MIRALAX *UNIT DOSE* 17GM PACKET PO (09:46)
[2017-09-19] MEDS: PERCOCET 5MG/325MG TAB PO ×3 (09:47→18:45)
[2017-09-19 12:54] LABS: HEMATOCRIT 28.4 % (36.0-47.0); HEMOGLOBIN 9.8 g/dl (12.0-15.5)
[2017-09-19] MEDS: LORazepam 0.5 MG TAB PO (19:28)
[2017-09-19 19:52] LABS: HEMATOCRIT 27.8 % (36.0-47.0); HEMOGLOBIN 9.4 g/dl (12.0-15.5)
[2017-09-19 20:29] LABS: C REACTIVE PROTEIN QUANTITATIV 6.14 MG/DL (0.00-0.30)
[2017-09-19 22:01] LABS: ERYTHROCYTE SEDIMENTATION RATE 36 mm/hr (0-30)
[2017-09-20] MEDS: SODIUM CHLORIDE 0.9% INJ 10 ML SYR IV ×2 (06:01→10:55)
[2017-09-20 06:24] LABS: HEMATOCRIT 25.4 % (36.0-47.0); HEMOGLOBIN 8.6 g/dl (12.0-15.5); MEAN CORPUSCULAR HGB CONC 33.9 g/dl (32.0-36.5); MEAN CORPUSCULAR VOLUME 97.3 fl (80.0-96.0); RED BLOOD COUNT 2.61 10^6/uL (4.00-5.40); RED CELL DISTRIBUTION WIDTH 13.2 % (11.5-14.5); WHITE BLOOD COUNT 3.5 10^3/uL (4.0-10.0)
[2017-09-20 06:26] LABS: PLATELET COUNT, AUTOMATED 70 10^3/uL (150-450)
[2017-09-20 06:39] LABS: ANION GAP 5 MEQ/L (8-16); BLOOD UREA NITROGEN 10 MG/DL (7-18); CALCIUM LEVEL 8.3 MG/DL (8.8-10.2); CARBON DIOXIDE LEVEL 28 MEQ/L (21-32); CHLORIDE LEVEL 108 MEQ/L (98-107); CREATININE FOR GFR 0.51 MG/DL (0.55-1.30); GLOMERULAR FILTRATION RATE > 60.0 (>39); GLUCOSE, FASTING 85 MG/DL (70-100); POTASSIUM SERUM 3.8 MEQ/L (3.5-5.1); SODIUM LEVEL 141 MEQ/L (136-145)
[2017-09-20] MEDS ORDERED: ISOVUE-370 76% 100ML VIAL (Q9967) As Ordered (09:18)
[2017-09-20] MEDS: DOCUSATE SODIUM 100 MG CAP PO ×2 (10:51→21:34)
[2017-09-20] MEDS: MIRALAX *UNIT DOSE* 17GM PACKET PO (10:51)
[2017-09-20] MEDS: DIGOXIN 0.125 MG TAB PO (10:53)
[2017-09-20 19:01] LABS: C REACTIVE PROTEIN QUANTITATIV 5.82 MG/DL (0.00-0.30)
[2017-09-20 20:00] LABS: ERYTHROCYTE SEDIMENTATION RATE 39 mm/hr (0-30)
[2017-09-21 07:01] LABS: HEMATOCRIT 25.9 % (36.0-47.0); HEMOGLOBIN 8.9 g/dl (12.0-15.5); MEAN CORPUSCULAR HEMOGLOBIN 33.6 pg (27.0-33.0); MEAN CORPUSCULAR HGB CONC 34.4 g/dl (32.0-36.5); MEAN CORPUSCULAR VOLUME 97.7 fl (80.0-96.0); RED BLOOD COUNT 2.65 10^6/uL (4.00-5.40); RED CELL DISTRIBUTION WIDTH 13.7 % (11.5-14.5); WHITE BLOOD COUNT 4.1 10^3/uL (4.0-10.0)
[2017-09-21 07:02] LABS: PLATELET COUNT, AUTOMATED 86 10^3/uL (150-450)
[2017-09-21 07:03] LABS: ANION GAP 7 MEQ/L (8-16); BLOOD UREA NITROGEN 8 MG/DL (7-18); CALCIUM LEVEL 8.4 MG/DL (8.8-10.2); CARBON DIOXIDE LEVEL 25 MEQ/L (21-32); CHLORIDE LEVEL 109 MEQ/L (98-107); CREATININE FOR GFR 0.47 MG/DL (0.55-1.30); GLOMERULAR FILTRATION RATE > 60.0 (>39); GLUCOSE, FASTING 81 MG/DL (70-100); IMMATURE PLATELET FRACTION % 3.6 % (0.0-9.6); SODIUM LEVEL 141 MEQ/L (136-145)
[2017-09-21] MEDS: DOCUSATE SODIUM 100 MG CAP PO ×2 (09:00→20:39)
[2017-09-21] MEDS: DIGOXIN 0.125 MG TAB PO (09:00)
[2017-09-21] MEDS: MIRALAX *UNIT DOSE* 17GM PACKET PO (09:01)
[2017-09-21] MEDS: SODIUM CHLORIDE 0.9% INJ 10 ML SYR IV ×2 (09:01)
[2017-09-21] MEDS: LIDOCAINE 5% (LIDODERM) PATCH TD (12:15)
[2017-09-21] MEDS: **NOTE PATIENT COMMENT** MISC XX (20:39)
[2017-09-21] MEDS: PERCOCET 5MG/325MG TAB PO (20:40)
[2017-09-22 00:06] LABS: HEPARIN INDUCED PLATELET ABY 0.111 OD (0.000-0.400)
[2017-09-22 05:49] LABS: HEMATOCRIT 26.7 % (36.0-47.0); HEMOGLOBIN 8.9 g/dl (12.0-15.5); MEAN CORPUSCULAR HEMOGLOBIN 32.7 pg (27.0-33.0); MEAN CORPUSCULAR HGB CONC 33.3 g/dl (32.0-36.5); MEAN CORPUSCULAR VOLUME 98.2 fl (80.0-96.0); PLATELET COUNT, AUTOMATED 83 10^3/uL (150-450); RED BLOOD COUNT 2.72 10^6/uL (4.00-5.40); RED CELL DISTRIBUTION WIDTH 13.6 % (11.5-14.5); WHITE BLOOD COUNT 2.6 10^3/uL (4.0-10.0)
[2017-09-22] MEDS: SODIUM CHLORIDE 0.9% INJ 10 ML SYR IV ×2 (08:42)
[2017-09-22] MEDS: DOCUSATE SODIUM 100 MG CAP PO ×2 (08:43→15:50)
[2017-09-22] MEDS: LIDOCAINE 5% (LIDODERM) PATCH TD (08:43)
[2017-09-22] MEDS: MIRALAX *UNIT DOSE* 17GM PACKET PO (08:43)
[2017-09-22] MEDS: DIGOXIN 0.125 MG TAB PO (08:45)
[2017-09-22] MEDS: ENOXAPARIN 100MG/1ML SYRINGE (J1650) SC (11:32)
[2017-09-22] MEDS ORDERED: ceFAZolin 1GM INJ (J0690 PER 500MG) As Ordered (15:16)
[2017-09-22] MEDS ORDERED: ISOVUE-300 61% 50ML VIAL (Q9967) As Ordered (15:16)
[2017-09-22] MEDS ORDERED: LIDOCAINE 2% MDV 20 ML VIAL As Ordered (15:31)
[2017-09-22] MEDS ORDERED: ALTEPLASE 2 MG/2 ML VIAL (J2997 PER 1MG) As Ordered (16:03)
== END 2017-09-22 18:24 | disposition home or self-care (01) | DRG 278 ==
LOC: M ED 00:58 → M ED INP 04:20 → M MSPAV 21:00
PROC: 04CH0ZZ Extirpation of Matter from Right External Iliac Artery, Open Approach (ICD-10-PCS; principal; 2017-09-14 10:04)
PROC: 04CK0ZZ Extirpation of Matter from Right Femoral Artery, Open Approach (ICD-10-PCS; 2017-09-14 10:04)
PROC: B410YZZ Fluoroscopy of Abdominal Aorta using Other Contrast (ICD-10-PCS; 2017-09-14 10:04)
PROC: B41FYZZ Fluoroscopy of Right Lower Extremity Arteries using Other Contrast (ICD-10-PCS; 2017-09-14 10:04)
PROC: 3E0433Z Introduction of Anti-inflammatory into Central Vein, Percutaneous Approach (ICD-10-PCS; 2017-09-14 10:04)
DX: I70.201 Unspecified atherosclerosis of native arteries of extremities, right leg (principal); I50.22 Chronic systolic (congestive) heart failure; C83.35 Diffuse large B-cell lymphoma, lymph nodes of inguinal region and lower limb; I48.91 Unspecified atrial fibrillation; I11.0 Hypertensive heart disease with heart failure; D63.8 Anemia in other chronic diseases classified elsewhere; D69.6 Thrombocytopenia, unspecified; M51.36 Other intervertebral disc degeneration, lumbar region; K59.00 Constipation, unspecified; R50.82 Postprocedural fever; R31.9 Hematuria, unspecified; Z87.440 Personal history of urinary (tract) infections; Z79.899 Other long term (current) drug therapy; Z93.6 Other artificial openings of urinary tract status; Z88.1 Allergy status to other antibiotic agents; Z95.0 Presence of cardiac pacemaker; Z87.891 Personal history of nicotine dependence

== ENCOUNTER 2017-09-23 20:56 | Inpatient (IN) | payer OTHER ==
[2017-09-23 21:42] LABS: BASO % 0.3 % (0.0-1.0); EOS # 0.1 10^3/uL (0.0-0.50); EOS % 3.9 % (0.0-3.0); HEMATOCRIT 31.6 % (36.0-47.0); HEMOGLOBIN 10.5 g/dl (12.0-15.5); IMMATURE GRANULOCYTE % 0.6 % (0-3.0); LYMPH # 0.3 10^3/uL (1.5-4.5); LYMPH % 8.2 % (24.0-44.0); MEAN CORPUSCULAR HEMOGLOBIN 33.3 pg (27.0-33.0); MEAN CORPUSCULAR HGB CONC 33.2 g/dl (32.0-36.5); MEAN CORPUSCULAR VOLUME 100.3 fl (80.0-96.0); MONO # 0.4 10^3/uL (0.0-0.8); MONO % 12.1 % (0.0-5.0); NEUTROPHILS # 2.5 10^3/uL (1.8-7.7); NEUTROPHILS % 74.9 % (36.0-66.0); PLATELET COUNT, AUTOMATED 129 10^3/uL (150-450); RED BLOOD COUNT 3.15 10^6/uL (4.00-5.40); RED CELL DISTRIBUTION WIDTH 14.3 % (11.5-14.5); WHITE BLOOD COUNT 3.3 10^3/uL (4.0-10.0)
[2017-09-23 22:12] LABS: ALBUMIN 3.3 GM/DL (3.2-5.2); ALBUMIN/GLOBULIN RATIO 1.22 (1.00-1.93); ALKALINE PHOSPHATASE 89 U/L (45-117); ALT/SGPT 15 U/L (12-78); ANION GAP 10 MEQ/L (8-16); AST/SGOT 22 U/L (7-37); BILIRUBIN,DIRECT 0.6 MG/DL (0.0-0.2); BILIRUBIN,TOTAL 1.5 MG/DL (0.2-1.0); BLOOD UREA NITROGEN 13 MG/DL (7-18); CALCIUM LEVEL 8.4 MG/DL (8.8-10.2); CARBON DIOXIDE LEVEL 24 MEQ/L (21-32); CHLORIDE LEVEL 107 MEQ/L (98-107); CPK CREATINE PHOSPHOKINASE 47 U/L (26-192); CREATININE FOR GFR 0.68 MG/DL (0.55-1.30); GLOMERULAR FILTRATION RATE > 60.0 (>39); GLUCOSE, FASTING 95 MG/DL (70-100); MAGNESIUM LEVEL 2.1 MG/DL (1.8-2.4); PHOSPHORUS LEVEL 3.6 MG/DL (2.5-4.9); POTASSIUM SERUM 3.9 MEQ/L (3.5-5.1); SODIUM LEVEL 141 MEQ/L (136-145); TROPONIN I 0.02 NG/ML (< 0.10)
[2017-09-23 22:14] LABS: CK-MB VALUE MASS < 1.0 NG/ML (<3.6); MB/CK RELATIVE INDEX 2.12 (< OR =4)
[2017-09-23] MEDS: METOPROLOL 5 MG/5 ML VIAL IV ×4 (22:20→22:45)
[2017-09-23 22:31] LABS: NT-PRO BNP 7949 PG/ML (<125)
[2017-09-23 22:31] LABS: C REACTIVE PROTEIN QUANTITATIV 3.52 MG/DL (0.00-0.30); DIGOXIN LEVEL 0.4 NG/ML (0.5-2.0)
[2017-09-23] MEDS: DIGOXIN INJ 0.5 MG/2 ML AMP (J1160) IV (22:45)
[2017-09-23] MEDS: FUROSEMIDE 40 MG/4 ML VIAL (J1940) IV (22:45)
[2017-09-24] MEDS ORDERED: ENOXAPARIN 100MG/1ML SYRINGE (J1650) SC
[2017-09-24] MEDS ORDERED: ACETAMINOPHEN 500 MG TAB PO
[2017-09-24] MEDS ORDERED: BISACODYL 5 MG TAB PO
[2017-09-24] MEDS ORDERED: ONDANSETRON 4MG/2ML VIAL (J2405) IV
[2017-09-24] MEDS: METOPROLOL TART 25 MG TABLET PO (00:31)
[2017-09-24] MEDS: DIGOXIN INJ 0.5 MG/2 ML AMP (J1160) IV (02:34)
[2017-09-24] MEDS: ENOXAPARIN 60 MG/0.6 ML SYR (J1650) SC ×3 (02:36→20:56)
[2017-09-24] MEDS: FUROSEMIDE 40 MG/4 ML VIAL (J1940) IV (08:23)
[2017-09-24] MEDS: SENOKOT S TAB PO ×2 (08:26→20:55)
[2017-09-24 08:52] LABS: CPK CREATINE PHOSPHOKINASE 37 U/L (26-192); TROPONIN I 0.05 NG/ML (< 0.10)
[2017-09-24 08:53] LABS: CK-MB VALUE MASS < 1.0 NG/ML (<3.6)
[2017-09-24] MEDS ORDERED: METOPROLOL SUCC (TopROL XL) 50MG **XL** TAB PO (09:00)
[2017-09-24] MEDS ORDERED: diphenhydrAMINE 12.5MG/5ML ELIXIR UDC PO (20:45)
[2017-09-24] MEDS: DIGOXIN 0.125 MG TAB PO (20:55)
[2017-09-25 05:21] LABS: HEMATOCRIT 27.7 % (36.0-47.0); HEMOGLOBIN 9.1 g/dl (12.0-15.5); MEAN CORPUSCULAR HEMOGLOBIN 32.2 pg (27.0-33.0); MEAN CORPUSCULAR HGB CONC 32.9 g/dl (32.0-36.5); MEAN CORPUSCULAR VOLUME 97.9 fl (80.0-96.0); PLATELET COUNT, AUTOMATED 143 10^3/uL (150-450); RED BLOOD COUNT 2.83 10^6/uL (4.00-5.40); RED CELL DISTRIBUTION WIDTH 14.1 % (11.5-14.5)
[2017-09-25 05:37] LABS: POS COUNT POS FLAG; WHITE BLOOD COUNT 1.9 10^3/uL (4.0-10.0)
[2017-09-25 06:01] LABS: ANION GAP 8 MEQ/L (8-16); BLOOD UREA NITROGEN 8 MG/DL (7-18); CALCIUM LEVEL 8.3 MG/DL (8.8-10.2); CARBON DIOXIDE LEVEL 28 MEQ/L (21-32); CHLORIDE LEVEL 108 MEQ/L (98-107); CREATININE FOR GFR 0.55 MG/DL (0.55-1.30); GLOMERULAR FILTRATION RATE > 60.0 (>39); GLUCOSE, FASTING 82 MG/DL (70-100); MAGNESIUM LEVEL 2.1 MG/DL (1.8-2.4); POTASSIUM SERUM 3.1 MEQ/L (3.5-5.1); SODIUM LEVEL 144 MEQ/L (136-145)
[2017-09-25] MEDS: KCL 10MEQ/100ML SWI (KRUN) 10 MEQ in APPROPRIATE DILUENT 1 EA IV ×2 (06:57→07:41)
[2017-09-25] MEDS: SENOKOT S TAB PO ×2 (09:00→21:01)
[2017-09-25] MEDS: POTASSIUM CHLORIDE 10 MEQ SR TABLET PO (09:00)
[2017-09-25] MEDS: ENOXAPARIN 60 MG/0.6 ML SYR (J1650) SC ×2 (09:00→21:04)
[2017-09-25 14:06] LABS: AMORPHOUS SEDIMENT SMALL (NEGATIVE); APPEARANCE, URINE CLEAR (CLEAR); BACTERIA, URINE AUTO NEGATIVE (NEGATIVE); BILIRUBIN, URINE AUTO NEGATIVE (NEGATIVE); BLOOD, URINE BLOOD 1+ (NEGATIVE); COLOR, URINE YELLOW (YELLOW); GLUCOSE, URINE (UA) AUTO NEGATIVE (NEGATIVE); KETONE, URINE AUTO NEGATIVE (NEGATIVE); LEUKOCYTE ESTERASE, URINE AUTO NEGATIVE (NEGATIVE); NITRITE, URINE AUTO NEGATIVE (NEGATIVE); PROTEIN, URINE AUTO NEGATIVE (NEGATIVE); RBC, URINE AUTO 9 /HPF (0-3); SPECIFIC GRAVITY URINE AUTO 1.003 (1.002-1.035); SQUAMOUS EPITHELIAL CELL UR AU 0 /HPF (0-6); WBC, URINE AUTO 0 /HPF (0-3)
[2017-09-25] MEDS: DIGOXIN 0.125 MG TAB PO (21:02)
[2017-09-26] MEDS ORDERED: SLF 3 ML SYR IV (01:30)
[2017-09-26 05:37] LABS: HEMATOCRIT 27.3 % (36.0-47.0); HEMOGLOBIN 8.9 g/dl (12.0-15.5); MEAN CORPUSCULAR HEMOGLOBIN 32.2 pg (27.0-33.0); MEAN CORPUSCULAR HGB CONC 32.6 g/dl (32.0-36.5); MEAN CORPUSCULAR VOLUME 98.9 fl (80.0-96.0); PLATELET COUNT, AUTOMATED 153 10^3/uL (150-450); RED BLOOD COUNT 2.76 10^6/uL (4.00-5.40); RED CELL DISTRIBUTION WIDTH 14.6 % (11.5-14.5)
[2017-09-26 05:38] LABS: POS COUNT POS FLAG; WHITE BLOOD COUNT 1.9 10^3/uL (4.0-10.0)
[2017-09-26 06:05] LABS: ANION GAP 5 MEQ/L (8-16); BLOOD UREA NITROGEN 10 MG/DL (7-18); CALCIUM LEVEL 8.5 MG/DL (8.8-10.2); CARBON DIOXIDE LEVEL 28 MEQ/L (21-32); CHLORIDE LEVEL 109 MEQ/L (98-107); DIGOXIN LEVEL 0.9 NG/ML (0.5-2.0); GLOMERULAR FILTRATION RATE > 60.0 (>39); GLUCOSE, FASTING 92 MG/DL (70-100); MAGNESIUM LEVEL 2.1 MG/DL (1.8-2.4); POTASSIUM SERUM 3.6 MEQ/L (3.5-5.1); SODIUM LEVEL 142 MEQ/L (136-145)
[2017-09-26] MEDS: SLF 3 ML SYR IV (06:06)
[2017-09-26] MEDS: SENOKOT S TAB PO (09:00)
[2017-09-26] MEDS: ENOXAPARIN 60 MG/0.6 ML SYR (J1650) SC (09:03)
== END 2017-09-26 11:30 | disposition home or self-care (01) | DRG 308 ==
LOC: M ED INP 23:55 → M PCU 09-24 01:40 → M ED 20:56
DX: I48.91 Unspecified atrial fibrillation (principal); I50.23 Acute on chronic systolic (congestive) heart failure; C85.10 Unspecified B-cell lymphoma, unspecified site; Z79.899 Other long term (current) drug therapy; Z88.1 Allergy status to other antibiotic agents; I11.0 Hypertensive heart disease with heart failure; Z95.810 Presence of automatic (implantable) cardiac defibrillator; Z87.891 Personal history of nicotine dependence; D63.8 Anemia in other chronic diseases classified elsewhere

== ENCOUNTER 2017-09-27 23:28 | Emergency (ER) | payer OTHER ==
[2017-09-28 02:49] LABS: ANION GAP 5 MEQ/L (8-16); BLOOD UREA NITROGEN 6 MG/DL (7-18); CALCIUM LEVEL 8.9 MG/DL (8.8-10.2); CARBON DIOXIDE LEVEL 29 MEQ/L (21-32); CHLORIDE LEVEL 109 MEQ/L (98-107); CREATININE FOR GFR 0.56 MG/DL (0.55-1.30); DIGOXIN LEVEL 0.9 NG/ML (0.5-2.0); GLOMERULAR FILTRATION RATE > 60.0 (>39); GLUCOSE, FASTING 109 MG/DL (70-100); POTASSIUM SERUM 3.7 MEQ/L (3.5-5.1); SODIUM LEVEL 143 MEQ/L (136-145)
[2017-09-28] MEDS ORDERED: DIGOXIN INJ 0.5 MG/2 ML AMP (J1160) IV ×2 (02:53)
[2017-09-28] MEDS ORDERED: DIGOXIN 0.25 MG TAB As Ordered ×2 (02:53)
[2017-09-28] MEDS: DIGOXIN 0.25 MG TAB PO ×4 (03:09→03:14)
[2017-09-28] MEDS ORDERED: DIGOXIN INJ 0.5 MG/2 ML AMP (J1160) As Ordered ×2 (03:40)
[2017-09-28] MEDS: DIGOXIN INJ 0.5 MG/2 ML AMP (J1160) IV ×2 (03:52)
== END 2017-09-28 05:59 | disposition home or self-care (01) ==
LOC: M ED 23:28
DX: I48.91 Unspecified atrial fibrillation (principal); Z95.0 Presence of cardiac pacemaker; K21.9 Gastro-esophageal reflux disease without esophagitis; D64.9 Anemia, unspecified; C83.30 Diffuse large B-cell lymphoma, unspecified site; Z79.899 Other long term (current) drug therapy; Z88.1 Allergy status to other antibiotic agents
CPT/HCPCS: J1160

== ENCOUNTER → 2017-10-11 | Outpatient (CLI) | payer OTHER ==
[2017-10-11 18:06] LABS: HEMATOCRIT 37.3 % (36.0-47.0); HEMOGLOBIN 12.3 g/dl (12.0-15.5); MEAN CORPUSCULAR HEMOGLOBIN 34.1 pg (27.0-33.0); MEAN CORPUSCULAR VOLUME 103.3 fl (80.0-96.0); PLATELET COUNT, AUTOMATED 125 10^3/uL (150-450); RED BLOOD COUNT 3.61 10^6/uL (4.00-5.40); RED CELL DISTRIBUTION WIDTH 15.5 % (11.5-14.5); WHITE BLOOD COUNT 3.8 10^3/uL (4.0-10.0)
[2017-10-11 18:18] LABS: ADD MANUAL DIFFER YES; DIFF SLIDE NUMBER 247; POSITIVE DIFF POS FLAG
[2017-10-11 20:50] LABS: ANISOCYTOSIS 1+; BANDS 1 % (< 11); EOSINOPHILS 8 % (0-5); LYMPHOCYTES 7 % (16-52); MONOCYTES 19 % (0-8); NEUTROPHILS 65 % (35-75); PLATELET ESTIMATE DECREASED (NORMAL); POIKILOCYTOSIS 1+; TEAR DROP CELLS 1+
== END ==
LOC: M SMT 13:39
DX: C85.90 Non-Hodgkin lymphoma, unspecified, unspecified site (principal)
CPT/HCPCS: 85025

== ENCOUNTER → 2017-10-18 | Outpatient (REF) | payer OTHER | LOC: M SFHCPLAZ 12:59 | DX: R30.0 Dysuria (principal) | CPT/HCPCS: 87186 ==

== ENCOUNTER → 2017-10-18 | Outpatient (CLI) | payer OTHER ==
[2017-10-18 17:59] LABS: BASO # 0.1 10^3/uL (0.0-0.2); BASO % 1.3 % (0.0-1.0); EOS # 0.2 10^3/uL (0.0-0.50); EOS % 4.1 % (0.0-3.0); HEMATOCRIT 37.9 % (36.0-47.0); HEMOGLOBIN 12.4 g/dl (12.0-15.5); IMMATURE GRANULOCYTE % 0.3 % (0-3.0); LYMPH % 6.1 % (24.0-44.0); MEAN CORPUSCULAR HEMOGLOBIN 33.7 pg (27.0-33.0); MEAN CORPUSCULAR HGB CONC 32.7 g/dl (32.0-36.5); MONO # 0.8 10^3/uL (0.0-0.8); MONO % 19.2 % (0.0-5.0); NEUTROPHILS # 2.7 10^3/uL (1.8-7.7); PLATELET COUNT, AUTOMATED 138 10^3/uL (150-450); RED BLOOD COUNT 3.68 10^6/uL (4.00-5.40); RED CELL DISTRIBUTION WIDTH 14.9 % (11.5-14.5)
[2017-10-18 19:45] LABS: LYMPH # 0.2 10^3/uL (1.5-4.5); POSITIVE DIFF POS FLAG
== END ==
LOC: M SMT 14:03
DX: C85.90 Non-Hodgkin lymphoma, unspecified, unspecified site (principal)
CPT/HCPCS: 85025

== ENCOUNTER → 2017-10-25 | Outpatient (CLI) | payer OTHER ==
[2017-10-25 14:08] LABS: BASO # 0.1 10^3/uL (0.0-0.2); BASO % 1.6 % (0.0-1.0); EOS # 0.3 10^3/uL (0.0-0.50); EOS % 10.9 % (0.0-3.0); HEMATOCRIT 38.8 % (36.0-47.0); HEMOGLOBIN 12.9 g/dl (12.0-15.5); IMMATURE GRANULOCYTE % 0.3 % (0-3.0); LYMPH # 0.5 10^3/uL (1.5-4.5); LYMPH % 15.4 % (24.0-44.0); MEAN CORPUSCULAR HEMOGLOBIN 33.8 pg (27.0-33.0); MEAN CORPUSCULAR HGB CONC 33.2 g/dl (32.0-36.5); MEAN CORPUSCULAR VOLUME 101.6 fl (80.0-96.0); NEUTROPHILS # 1.2 10^3/uL (1.8-7.7); NEUTROPHILS % 38.8 % (36.0-66.0); PLATELET COUNT, AUTOMATED 111 10^3/uL (150-450); RED BLOOD COUNT 3.82 10^6/uL (4.00-5.40); RED CELL DISTRIBUTION WIDTH 14.6 % (11.5-14.5); WHITE BLOOD COUNT 3.1 10^3/uL (4.0-10.0)
== END ==
LOC: M SMT 10:02
DX: C85.90 Non-Hodgkin lymphoma, unspecified, unspecified site (principal)
CPT/HCPCS: 85025

== ENCOUNTER → 2017-11-03 | Outpatient (CLI) | payer OTHER | LOC: M RAD 10:44 | DX: I74.3 Embolism and thrombosis of arteries of the lower extremities (principal) | CPT/HCPCS: 93923 ==

== ENCOUNTER → 2017-11-03 | Outpatient (CLI) | payer OTHER ==
[~2017-11-03] MED LIST changes: -LIDOCAINE 2% MDV 20 ML VIAL As Ordered
== END ==
LOC: M RADPRO 10:51
DX: N13.39 Other hydronephrosis (principal); I74.3 Embolism and thrombosis of arteries of the lower extremities
CPT/HCPCS: 50435

== ENCOUNTER → 2017-11-27 | Outpatient (REF) | payer OTHER ==
[2017-11-27 16:33] LABS: APPEARANCE, URINE CLOUDY (CLEAR); BACTERIA, URINE AUTO 1+ (NEGATIVE); BILIRUBIN, URINE AUTO NEGATIVE (NEGATIVE); BLOOD, URINE BLOOD NEGATIVE (NEGATIVE); COLOR, URINE AMBER (YELLOW); GLUCOSE, URINE (UA) AUTO NEGATIVE (NEGATIVE); KETONE, URINE AUTO NEGATIVE (NEGATIVE); LEUKOCYTE ESTERASE, URINE AUTO 3+ (NEGATIVE); MUCUS, URINE SMALL (NEGATIVE); NITRITE, URINE AUTO NEGATIVE (NEGATIVE); PROTEIN, URINE AUTO NEGATIVE (NEGATIVE); RBC, URINE AUTO 20 /HPF (0-3); SPECIFIC GRAVITY URINE AUTO 1.008 (1.002-1.035); SQUAMOUS EPITHELIAL CELL UR AU 0 /HPF (0-6); UROBILINOGEN, URINE AUTO 0.2 mg/dL (0.0-2.0); WBC, URINE AUTO TNTC /HPF (0-3)
[2017-11-27 16:35] LABS: APPEARANCE, URINE CLOUDY (CLEAR); BACTERIA, URINE AUTO 2+ (NEGATIVE); BILIRUBIN, URINE AUTO NEGATIVE (NEGATIVE); BLOOD, URINE BLOOD 3+ (NEGATIVE); COLOR, URINE AMBER (YELLOW); GLUCOSE, URINE (UA) AUTO NEGATIVE (NEGATIVE); KETONE, URINE AUTO NEGATIVE (NEGATIVE); LEUKOCYTE ESTERASE, URINE AUTO 3+ (NEGATIVE); MUCUS, URINE SMALL (NEGATIVE); NITRITE, URINE AUTO POSITIVE (NEGATIVE); PROTEIN, URINE AUTO 2+ mg/dL (NEGATIVE); RBC, URINE AUTO 82 /HPF (0-3); SPECIFIC GRAVITY URINE AUTO 1.008 (1.002-1.035); SQUAMOUS EPITHELIAL CELL UR AU 0 /HPF (0-6); UROBILINOGEN, URINE AUTO 0.2 mg/dL (0.0-2.0); WBC, URINE AUTO TNTC /HPF (0-3)
== END ==
LOC: M SFHCPLAZ 11:02
DX: R82.90 Unspecified abnormal findings in urine (principal)
CPT/HCPCS: 81001

== ENCOUNTER → 2017-11-28 | Outpatient (CLI) | payer OTHER ==
[2017-11-28 14:19] LABS: CHOLESTEROL LEVEL 174 MG/DL (<200); CHOLESTEROL RISK RATIO 2.202 (<5); GLUCOSE, FASTING 87 MG/DL (70-100); HDL CHOLESTEROL 79 MG/DL (>40); LDL CHOLESTEROL 74.4 MG/DL (<100); NON-HDL-C 95 MG/DL; TRIGLYCERIDES LEVEL 103 MG/DL (<150)
== END ==
LOC: M SMT 10:54
DX: Z13.220 Encounter for screening for lipoid disorders (principal)
CPT/HCPCS: 82947

== ENCOUNTER 2017-12-25 09:12 | Outpatient (RCR) | payer OTHER | END 2018-01-02 | LOC: M ST 09:12 | DX: Z51.89 Encounter for other specified aftercare (principal); R49.0 Dysphonia ==

== ENCOUNTER 2018-01-14 22:27 | Emergency (ER) | payer OTHER ==
[2018-01-14 23:20] LABS: BASO % 0.5 % (0.0-1.0); EOS # 0.1 10^3/uL (0.0-0.50); EOS % 1.7 % (0.0-3.0); HEMATOCRIT 38.5 % (36.0-47.0); HEMOGLOBIN 12.8 g/dl (12.0-15.5); IMMATURE GRANULOCYTE % 0.2 % (0-3.0); LYMPH # 0.3 10^3/uL (1.5-4.5); LYMPH % 5.2 % (24.0-44.0); MEAN CORPUSCULAR HEMOGLOBIN 33.1 pg (27.0-33.0); MEAN CORPUSCULAR HGB CONC 33.2 g/dl (32.0-36.5); MEAN CORPUSCULAR VOLUME 99.5 fl (80.0-96.0); MONO # 0.9 10^3/uL (0.0-0.8); MONO % 15.5 % (0.0-5.0); NEUTROPHILS # 4.4 10^3/uL (1.8-7.7); NEUTROPHILS % 76.9 % (36.0-66.0); RED BLOOD COUNT 3.87 10^6/uL (4.00-5.40); RED CELL DISTRIBUTION WIDTH 14.1 % (11.5-14.5); WHITE BLOOD COUNT 5.7 10^3/uL (4.0-10.0)
[2018-01-14 23:56] LABS: PLATELET COUNT, AUTOMATED 92 10^3/uL (150-450)
[2018-01-14 23:58] LABS: IMMATURE PLATELET FRACTION % 2.6 % (0.0-9.6)
[2018-01-15 00:11] LABS: LACTIC ACID SEPSIS PROTOCOL 1.9 MMOL/L (0.4-2.0)
[2018-01-15 00:23] LABS: ANION GAP 7 MEQ/L (8-16); BLOOD UREA NITROGEN 11 MG/DL (7-18); CALCIUM LEVEL 8.8 MG/DL (8.8-10.2); CARBON DIOXIDE LEVEL 28 MEQ/L (21-32); CHLORIDE LEVEL 105 MEQ/L (98-107); CREATININE FOR GFR 0.76 MG/DL (0.55-1.30); DIGOXIN LEVEL 0.7 NG/ML (0.5-2.0); GLOMERULAR FILTRATION RATE > 60.0 (>39); GLUCOSE, FASTING 136 MG/DL (70-100); NT-PRO BNP 7353 PG/ML (<125); POTASSIUM SERUM 3.7 MEQ/L (3.5-5.1); SODIUM LEVEL 140 MEQ/L (136-145)
[2018-01-15] MEDS: FUROSEMIDE 100 MG/10 ML VIAL (J1940) IV (00:41)
== END 2018-01-15 02:05 | disposition home or self-care (01) ==
LOC: M ED 01-15 02:05
DX: I11.0 Hypertensive heart disease with heart failure (principal); C85.90 Non-Hodgkin lymphoma, unspecified, unspecified site; I48.91 Unspecified atrial fibrillation; Z95.0 Presence of cardiac pacemaker; Z87.891 Personal history of nicotine dependence
CPT/HCPCS: J1940

== ENCOUNTER 2018-02-04 11:18 | Emergency (ER) | payer OTHER ==
[2018-02-04 13:26] LABS: HEMOGLOBIN 13.2 g/dl (12.0-15.5); MEAN CORPUSCULAR HEMOGLOBIN 33.4 pg (27.0-33.0); MEAN CORPUSCULAR HGB CONC 33.8 g/dl (32.0-36.5); MEAN CORPUSCULAR VOLUME 98.7 fl (80.0-96.0); RED BLOOD COUNT 3.95 10^6/uL (4.00-5.40); RED CELL DISTRIBUTION WIDTH 14.1 % (11.5-14.5); WHITE BLOOD COUNT 23.9 10^3/uL (4.0-10.0)
[2018-02-04 13:29] LABS: ADD MANUAL DIFFER YES; DIFF SLIDE NUMBER 116; PLATELET COUNT, AUTOMATED 92 10^3/uL (150-450); POS COUNT POS FLAG; POSITIVE DIFF POS FLAG; POSITIVE MORPH POS FLAG
[2018-02-04 13:32] LABS: IMMATURE PLATELET FRACTION % 4.4 % (0.0-9.6); PLATELET F 93
[2018-02-04] MEDS: NS 500 ML IV (13:45)
[2018-02-04 13:47] LABS: ALBUMIN 3.1 GM/DL (3.2-5.2); ALBUMIN/GLOBULIN RATIO 1.15 (1.00-1.93); ALKALINE PHOSPHATASE 71 U/L (45-117); ANION GAP 9 MEQ/L (8-16); AST/SGOT 20 U/L (7-37); BILIRUBIN,DIRECT 0.4 MG/DL (0.0-0.2); BILIRUBIN,TOTAL 1.4 MG/DL (0.2-1.0); BLOOD UREA NITROGEN 14 MG/DL (7-18); CALCIUM LEVEL 8.8 MG/DL (8.8-10.2); CARBON DIOXIDE LEVEL 30 MEQ/L (21-32); CHLORIDE LEVEL 105 MEQ/L (98-107); CPK CREATINE PHOSPHOKINASE 16 U/L (26-192); CREATININE FOR GFR 0.67 MG/DL (0.55-1.30); GLOMERULAR FILTRATION RATE > 60.0 (>39); GLUCOSE, FASTING 69 MG/DL (70-100); POTASSIUM SERUM 3.7 MEQ/L (3.5-5.1); SODIUM LEVEL 144 MEQ/L (136-145); TOTAL PROTEIN 5.8 GM/DL (6.4-8.2); TROPONIN I < 0.02 NG/ML (< 0.10)
[2018-02-04 13:53] LABS: ALT/SGPT 20 U/L (12-78); CK-MB VALUE MASS < 1.0 NG/ML (<3.6); MB/CK RELATIVE INDEX 6.25 (< OR =4); NT-PRO BNP 8126 PG/ML (<125); THYROID STIMULATING HORMONE 0.679 uIU/ML (0.358-3.740)
[2018-02-04 14:20] LABS: BANDS 7 % (< 11); EOSINOPHILS 3 % (0-5); LYMPHOCYTES 4 % (16-52); MONOCYTES 4 % (0-8); MYELOCYTES 1 % (0-0); NEUTROPHILS 81 % (35-75); PLATELET CLUMPS SMALL AMT; PLATELET ESTIMATE DECREASED (NORMAL)
[2018-02-04 15:27] LABS: KETONE, URINE AUTO RFX 1+ mg/dL (NEGATIVE); LEUKOCYTE ESTERASE UR AUTO RFX NEGATIVE (NEGATIVE); NITRITE, URINE AUTO RFX NEGATIVE (NEGATIVE); RBC, URINE AUTO RFX 4 /HPF (0-3); SPECIFIC GRAVITY UR AUTO RFX 1.011 (1.002-1.035); SQUAM EPITHELIAL CELL UR AURFX 0 /HPF (0-6); WBC, URINE AUTO RFX 1 /HPF (0-3)
[2018-02-04] MEDS: PERCOCET 5MG/325MG TAB PO (15:44)
== END 2018-02-04 17:49 | disposition home or self-care (01) ==
LOC: M ED 11:18
DX: R51 Headache (principal); T42.75XA Adverse effect of unspecified antiepileptic and sedative-hypnotic drugs, initial encounter
CPT/HCPCS: 71046

== ENCOUNTER → 2018-02-15 | Outpatient (CLI) | payer OTHER | LOC: M RAD 11:15 | DX: R06.02 Shortness of breath (principal) | CPT/HCPCS: 71046 ==

== ENCOUNTER → 2018-02-15 | Outpatient (CLI) | payer OTHER ==
[2018-02-15 14:39] LABS: BASO # 0.1 10^3/uL (0.0-0.2); BASO % 0.9 % (0.0-1.0); EOS # 0.2 10^3/uL (0.0-0.50); EOS % 2.1 % (0.0-3.0); HEMATOCRIT 41.4 % (36.0-47.0); HEMOGLOBIN 13.3 g/dl (12.0-15.5); IMMATURE GRANULOCYTE % 1.2 % (0-3.0); LYMPH # 0.4 10^3/uL (1.5-4.5); LYMPH % 4.3 % (24.0-44.0); MEAN CORPUSCULAR HEMOGLOBIN 33.7 pg (27.0-33.0); MEAN CORPUSCULAR HGB CONC 32.1 g/dl (32.0-36.5); MEAN CORPUSCULAR VOLUME 104.8 fl (80.0-96.0); MONO # 0.9 10^3/uL (0.0-0.8); MONO % 10.5 % (0.0-5.0); NEUTROPHILS # 6.6 10^3/uL (1.8-7.7); PLATELET COUNT, AUTOMATED 166 10^3/uL (150-450); RED BLOOD COUNT 3.95 10^6/uL (4.00-5.40); RED CELL DISTRIBUTION WIDTH 15.7 % (11.5-14.5); WHITE BLOOD COUNT 8.2 10^3/uL (4.0-10.0)
[2018-02-15 15:07] LABS: ALBUMIN 3.9 GM/DL (3.2-5.2); ALBUMIN/GLOBULIN RATIO 1.56 (1.00-1.93); ALKALINE PHOSPHATASE 114 U/L (45-117); ALT/SGPT 18 U/L (12-78); ANION GAP 9 MEQ/L (8-16); AST/SGOT 17 U/L (7-37); BILIRUBIN,TOTAL 0.7 MG/DL (0.2-1.0); BLOOD UREA NITROGEN 7 MG/DL (7-18); CALCIUM LEVEL 9.5 MG/DL (8.8-10.2); CARBON DIOXIDE LEVEL 28 MEQ/L (21-32); CHLORIDE LEVEL 106 MEQ/L (98-107); GLOMERULAR FILTRATION RATE > 60.0 (>39); GLUCOSE, FASTING 97 MG/DL (70-100); NT-PRO BNP 4049 PG/ML (<125); POTASSIUM SERUM 4.2 MEQ/L (3.5-5.1); SODIUM LEVEL 143 MEQ/L (136-145); TOTAL PROTEIN 6.4 GM/DL (6.4-8.2)
== END ==
LOC: M SMT 10:03
DX: R06.02 Shortness of breath (principal); R05 Cough
CPT/HCPCS: 80053

== ENCOUNTER → 2018-03-07 | Outpatient (CLI) | payer OTHER | LOC: M RAD 15:03 | DX: N20.1 Calculus of ureter (principal) ==

== ENCOUNTER → 2018-03-19 | Outpatient (CLI) | payer OTHER | LOC: M SMT 11:50 | DX: R05 Cough (principal) ==

== ENCOUNTER → 2018-03-21 | Outpatient (CLI) | payer OTHER ==
[2018-03-21 17:52] LABS: BASO # 0.1 10^3/uL (0.0-0.2); BASO % 0.9 % (0.0-1.0); EOS # 0.3 10^3/uL (0.0-0.50); EOS % 6.1 % (0.0-3.0); HEMOGLOBIN 12.9 g/dl (12.0-15.5); IMMATURE GRANULOCYTE % 0.2 % (0-3.0); LYMPH # 0.5 10^3/uL (1.5-4.5); LYMPH % 8.2 % (24.0-44.0); MEAN CORPUSCULAR HEMOGLOBIN 33.3 pg (27.0-33.0); MEAN CORPUSCULAR HGB CONC 33.1 g/dl (32.0-36.5); MEAN CORPUSCULAR VOLUME 100.8 fl (80.0-96.0); MONO # 0.9 10^3/uL (0.0-0.8); MONO % 16.6 % (0.0-5.0); NEUTROPHILS # 3.8 10^3/uL (1.8-7.7); PLATELET COUNT, AUTOMATED 136 10^3/uL (150-450); RED BLOOD COUNT 3.87 10^6/uL (4.00-5.40); RED CELL DISTRIBUTION WIDTH 13.3 % (11.5-14.5); WHITE BLOOD COUNT 5.6 10^3/uL (4.0-10.0)
== END ==
LOC: M SMT 14:58
DX: C82.13 Follicular lymphoma grade II, intra-abdominal lymph nodes (principal)
CPT/HCPCS: 85025

== ENCOUNTER → 2018-04-10 | Outpatient (CLI) | payer OTHER ==
[~2018-04-10] MED LIST changes: -BACTRIM 160MG/800MG DS TAB As Ordered; +E-Z-GAS II EFFERVESCENT PACKET (SODIUM BICARB./CITRIC ACID/SIMETHICONE) As Ordered; +E-Z-HD 98% w/w 340GM SUSP BTL As Ordered; +E-Z-PAQUE 96% w/w SUSP 176GM BTL As Ordered; -ISOVUE-300 61% 50ML VIAL (Q9967) As Ordered
== END ==
LOC: M RAD 09:26
DX: R13.10 Dysphagia, unspecified (principal); J90 Pleural effusion, not elsewhere classified; I51.7 Cardiomegaly; Q39.4 Esophageal web
CPT/HCPCS: 74220

== ENCOUNTER → 2018-05-14 | Outpatient (CLI) | payer OTHER | LOC: M RAD 10:15 | DX: C82.00 Follicular lymphoma grade I, unspecified site (principal) ==

== ENCOUNTER → 2018-05-14 | Outpatient (CLI) | payer OTHER ==
[2018-05-14 13:20] LABS: ANION GAP 7 MEQ/L (8-16); BLOOD UREA NITROGEN 8 MG/DL (7-18); CALCIUM LEVEL 9.4 MG/DL (8.8-10.2); CARBON DIOXIDE LEVEL 30 MEQ/L (21-32); CHLORIDE LEVEL 104 MEQ/L (98-107); CREATININE FOR GFR 0.64 MG/DL (0.55-1.30); GLOMERULAR FILTRATION RATE > 60.0 (>39); GLUCOSE, FASTING 91 MG/DL (70-100); NT-PRO BNP 3733 PG/ML (<450); POTASSIUM SERUM 4.4 MEQ/L (3.5-5.1); SODIUM LEVEL 141 MEQ/L (136-145)
== END ==
LOC: M SMT 09:42
DX: I50.9 Heart failure, unspecified (principal)

== ENCOUNTER → 2018-05-14 | Outpatient (CLI) | payer OTHER ==
[2018-05-14 13:20] LABS: ALBUMIN 3.6 GM/DL (3.2-5.2); ALKALINE PHOSPHATASE 84 U/L (45-117); ALT/SGPT 17 U/L (12-78); ANION GAP 7 MEQ/L (8-16); AST/SGOT 17 U/L (7-37); BILIRUBIN,TOTAL 0.5 MG/DL (0.2-1.0); BLOOD UREA NITROGEN 8 MG/DL (7-18); CALCIUM LEVEL 9.4 MG/DL (8.8-10.2); CARBON DIOXIDE LEVEL 30 MEQ/L (21-32); CHLORIDE LEVEL 104 MEQ/L (98-107); CREATININE FOR GFR 0.64 MG/DL (0.55-1.30); GLOMERULAR FILTRATION RATE > 60.0 (>39); GLUCOSE, FASTING 91 MG/DL (70-100); LDH LACTATE DEHYDROGENASE 207 U/L (84-246); POTASSIUM SERUM 4.5 MEQ/L (3.5-5.1); SODIUM LEVEL 141 MEQ/L (136-145); TOTAL PROTEIN 6.6 GM/DL (6.4-8.2)
[2018-05-14 13:22] LABS: BASO % 0.8 % (0.0-1.0); EOS # 0.2 10^3/uL (0.0-0.50); HEMATOCRIT 44.8 % (36.0-47.0); HEMOGLOBIN 14.6 g/dl (12.0-15.5); IMMATURE GRANULOCYTE % 0.3 % (0-3.0); LYMPH # 0.4 10^3/uL (1.5-4.5); LYMPH % 8.8 % (24.0-44.0); MEAN CORPUSCULAR HGB CONC 32.6 g/dl (32.0-36.5); MEAN CORPUSCULAR VOLUME 101.1 fl (80.0-96.0); MONO # 0.5 10^3/uL (0.0-0.8); MONO % 12.8 % (0.0-5.0); NEUTROPHILS # 2.9 10^3/uL (1.8-7.7); NEUTROPHILS % 73.3 % (36.0-66.0); PLATELET COUNT, AUTOMATED 194 10^3/uL (150-450); RED BLOOD COUNT 4.43 10^6/uL (4.00-5.40)
== END ==
LOC: M SMT 09:46
DX: C82.13 Follicular lymphoma grade II, intra-abdominal lymph nodes (principal); C82.00 Follicular lymphoma grade I, unspecified site
CPT/HCPCS: 83615

== ENCOUNTER → 2018-05-15 | Outpatient (CLI) | payer OTHER ==
[~2018-05-15] MED LIST changes: -E-Z-GAS II EFFERVESCENT PACKET (SODIUM BICARB./CITRIC ACID/SIMETHICONE) As Ordered; -E-Z-HD 98% w/w 340GM SUSP BTL As Ordered; -E-Z-PAQUE 96% w/w SUSP 176GM BTL As Ordered; +ISOVUE-370 76% 100ML VIAL (Q9967) As Ordered
== END ==
LOC: M RAD 10:21
DX: C82.00 Follicular lymphoma grade I, unspecified site (principal)
CPT/HCPCS: Q9967

== ENCOUNTER → 2018-05-16 | Outpatient (REF) | payer OTHER | LOC: M SFHCPLAZ 16:21 | DX: R19.7 Diarrhea, unspecified (principal) | CPT/HCPCS: 87493 ==

== ENCOUNTER → 2018-06-15 | Outpatient (REF) | payer OTHER ==
[~2018-06-15] MED LIST changes: +ALDA25TA2 OR; +ARTI99.0 OU; +AUGM500T34 PO; +BACT800T5 PO; +BENI20TA11 OR; +BETA80TA OR; +CALCTAB75 PO; +CEFD300CAP PO; +COMBAER6 INH; +DIGO0.126 OR; +DIGO0.127 PO; +ENOX100I3 SC; +ENTR1TAB PO; +FURO20TA2 OR; +FURO20TA2 PO; +FURO40TA2 PO; -ISOVUE-370 76% 100ML VIAL (Q9967) As Ordered; +KEFL500C17 PO; +LASI20TA OR; +LOSA50TA88; +LOSA50TA88 PO; +LOVE0.4I2 SC; +LOVE0.8I SC; +METO1TAB33; +METO1TAB33 PO; +METO200T28 PO; +NITR0.4D6 TD; +NITR0.4S14 SL; +NITRODUR; +NITROGLYCERIN TOP; +OMEP20CA3 PO; +OMEP20TA7 OR; +OXYC1TAB23 PO; +PRAD150C; +PRAD150C PO; +PRED50TA PO; +SOTA80TA2 OR; +SUPE1TAB PO; +TOPR100T13 PO; +TOPR50TA23 PO; +TYLE1TAB5 PO; +VIT D 2000 PO; +VITA-122 PO; +VITA-56 OR; +VITA10005 PO; +VITACRE10 PO; +VITAMIN B COMPLE1 OR; +pradaxa PO
[2018-06-15 13:46] LABS: APPEARANCE, URINE CLEAR (CLEAR); BACTERIA, URINE AUTO NEGATIVE (NEGATIVE); BILIRUBIN, URINE AUTO NEGATIVE (NEGATIVE); BLOOD, URINE BLOOD NEGATIVE (NEGATIVE); COLOR, URINE YELLOW (YELLOW); GLUCOSE, URINE (UA) AUTO NEGATIVE (NEGATIVE); KETONE, URINE AUTO NEGATIVE (NEGATIVE); LEUKOCYTE ESTERASE, URINE AUTO NEGATIVE (NEGATIVE); MUCUS, URINE SMALL (NEGATIVE); NITRITE, URINE AUTO NEGATIVE (NEGATIVE); PROTEIN, URINE AUTO NEGATIVE (NEGATIVE); RBC, URINE AUTO 2 /HPF (0-3); SPECIFIC GRAVITY URINE AUTO 1.011 (1.002-1.035); SQUAMOUS EPITHELIAL CELL UR AU 0 /HPF (0-6); UROBILINOGEN, URINE AUTO 0.2 mg/dL (0.0-2.0); WBC, URINE AUTO 4 /HPF (0-3)
== END ==
LOC: M SMT 12:50
PROVIDERS: ATTEND Nurse Practitioner Family
DX: R31.29 Other microscopic hematuria (principal)

== ENCOUNTER → 2018-07-16 | Outpatient (CLI) | payer OTHER ==
[2018-07-16 14:17] LABS: MAGNESIUM LEVEL 1.9 MG/DL (1.8-2.4); THYROID STIMULATING HORMONE 0.744 uIU/ML (0.358-3.740)
[2018-07-16 14:18] LABS: HEMOGLOBIN A1c 6.2 %
== END ==
LOC: M SMT 09:07
PROVIDERS: ATTEND Family Medicine
DX: G62.9 Polyneuropathy, unspecified (principal)
CPT/HCPCS: 36415; 82607; 83036; 83735; 84443; G0463

== ENCOUNTER → 2018-08-02 | Outpatient (CLI) | payer OTHER ==
[2018-08-02 13:35] LABS: BASO # 0.1 10^3/uL (0.0-0.2); BASO % 0.8 % (0.0-1.0); EOS # 0.1 10^3/uL (0.0-0.50); HEMATOCRIT 42.5 % (36.0-47.0); HEMOGLOBIN 13.9 g/dl (12.0-15.5); LYMPH # 1.6 10^3/uL (1.5-4.5); MEAN CORPUSCULAR HEMOGLOBIN 32.5 pg (27.0-33.0); MEAN CORPUSCULAR HGB CONC 32.7 g/dl (32.0-36.5); MEAN CORPUSCULAR VOLUME 99.3 fl (80.0-96.0); MONO # 0.8 10^3/uL (0.0-0.8); MONO % 10.9 % (0.0-5.0); NEUTROPHILS # 4.6 10^3/uL (1.8-7.7); NEUTROPHILS % 64.2 % (36.0-66.0); PLATELET COUNT, AUTOMATED 171 10^3/uL (150-450); RED BLOOD COUNT 4.28 10^6/uL (4.00-5.40); WHITE BLOOD COUNT 7.1 10^3/uL (4.0-10.0)
[2018-08-02 13:55] LABS: HEMOGLOBIN A1c 5.9 %
[2018-08-02 14:19] LABS: ALBUMIN 3.8 GM/DL (3.2-5.2); ALT/SGPT 21 U/L (12-78); BILIRUBIN,TOTAL 0.6 MG/DL (0.2-1.0); BLOOD UREA NITROGEN 10 MG/DL (7-18); CARBON DIOXIDE LEVEL 30 MEQ/L (21-32); CHLORIDE LEVEL 104 MEQ/L (98-107); CREATININE FOR GFR 0.63 MG/DL (0.55-1.30); FOLATE 21.6 NG/ML; GLOMERULAR FILTRATION RATE > 60.0 (>39); GLUCOSE, FASTING 93 MG/DL (70-100); POTASSIUM SERUM 4.3 MEQ/L (3.5-5.1); RHEUMATOID FACTOR QUANT < 10.0 IU/ML (<15.0); SODIUM LEVEL 141 MEQ/L (136-145); THYROID STIMULATING HORMONE 0.894 uIU/ML (0.358-3.740); TOTAL PROTEIN 6.5 GM/DL (6.4-8.2); VITAMIN B12 LEVEL 388 PG/ML
[2018-08-02 14:23] LABS: ERYTHROCYTE SEDIMENTATION RATE 12 mm/hr (0-30)
[2018-08-07 10:08] LABS: DRVV SCREEN 109.6 SEC
[2018-08-07 10:13] LABS: PTT LUPUS TYPE ANTICOAG SCREEN 2.7 (0-1.2)
[2018-08-07 10:22] LABS: DRVV CONFIRM 92.2 SEC; LUPUS CONFIRM RATIO 2.4
[2018-08-07 10:33] LABS: NORMALIZED RATIO 1.13 (0.00-1.20)
[2018-08-07 16:21] LABS: ANCA-ATYPICAL <1:20 titer (Neg:<1:20); ANTI DOUBLE STRAND-DNA AB <1 IU/mL (0-9); ANTINUCLEAR ANTIBODIES DIRECT Negative (Negative); COPPER PLASMA 115 ug/dL (72-166); CYTOPLASMIC NEUTROP AB ANCA-C <1:20 titer (Neg:<1:20); LEAD BLOOD ADULT 1 ug/dL (0-4); MERCURY LEVEL None Detected ug/L (0.0-14.9); PERINUCLEAR AB ANCA-P <1:20 titer (Neg:<1:20); SJOGREN'S ANTI SS-A <0.2 AI (0.0-0.9); SJOGREN'S ANTI SS-B <0.2 AI (0.0-0.9); VITAMIN B1 LEVEL WHOLE BLOOD 158.6 nmol/L (66.5-200.0); VITAMIN B6,PYRIDOXAL PHOSPHATE 7.9 ug/L (2.0-32.8); VITAMIN E(ALPHA TOCOPHEROL) 13.4 mg/L (9.0-29.0); VITAMIN E(GAMMA TOCOPHEROL) 0.3 mg/L (0.5-4.9)
[2018-08-08 07:31] LABS: ALPHA-1-GLOBULIN % 5.6 % (2.9-4.9); BETA-1-GLOBULINS % 6.1 % (4.7-7.2); BETA-2-GLOBULINS % 4.3 % (3.2-6.5)
[2018-08-08 07:32] LABS: ALBUMIN 4.03 GM/DL (3.29-5.55); ALPHA-1-GLOBULINS 0.36 GM/DL (0.17-0.41); ALPHA-2-GLOBULINS 0.78 GM/DL (0.42-0.99); BETA-2-GLOBULINS 0.28 GM/DL (0.19-0.55); GAMMA GLOBULINS 0.65 GM/DL (0.65-1.58)
== END ==
LOC: M SMT 09:34
PROVIDERS: ATTEND Psychiatry & Neurology Neurology
DX: G62.9 Polyneuropathy, unspecified (principal)

== ENCOUNTER → 2018-08-07 | Outpatient (CLI) | payer OTHER ==
--- NOTE | 2018-08-07 12:10 | REP ---
CT study lumbar spine without contrast: History: Lumbar pain. Comparison study is from September 20, 2017. CT findings: Vertebral body heights are preserved in the lumbar spine. There is mild anterior wedging of the T12 vertebral body. This is unchanged from September 19, [address] images. There is a benign hemangioma in the L4 vertebral body which is also unchanged. No bony destructive lesion is appreciated. There are degenerative disc changes L5-S1 with posterior central disc bulging indenting the ventral margin of the thecal sac. There is discogenic spurring and mild facet hypertrophy producing mild bilateral neural foraminal encroachment unchanged. At L4-5, there is ligamentum flavum and mild facet hypertrophy and mild diffuse disc bulging unchanged. Mild central canal stenosis is noted at L4-5 unchanged from prior study. At L3-4, there is minimal thecal sac compression from diffuse disc bulging. The L2-3 level is unremarkable and unchanged. An opaque gallstone is visible. Impression: Degenerative disc and facet changes most pronounced at L5-S1. Mild central canal stenosis again noted at L4-5. Central disc bulging with calcification and L5-S1. Mild bilateral neural foraminal encroachment at L5-S1. Electronically Signed by Zach Love MD 08/07/2018 02:44 P
== END ==
LOC: M RAD 10:47
PROVIDERS: ATTEND Psychiatry & Neurology Neurology
DX: M51.37 Other intervertebral disc degeneration, lumbosacral region (principal); M48.061 Spinal stenosis, lumbar region without neurogenic claudication; M51.27 Other intervertebral disc displacement, lumbosacral region

== ENCOUNTER → 2018-09-12 | Outpatient (CLI) | payer OTHER ==
[~2018-09-12] MED LIST changes: -BETA80TA OR; +OMEP-218 PO; -PRAD150C; -PRAD150C PO; +PRAD150C6; +PRAD150C6 PO; +SOTA80TA OR; +TOPR100T PO; -TOPR100T13 PO; +TOPR50TA PO; -TOPR50TA23 PO
--- NOTE | 2018-09-13 04:11 | REP ---
Clinical: Headaches. Comparison: 02/04/2018 . Findings: Age-related atrophy with periventricular leukomalacia and microvascular ischemic changes are appreciated. The ventricles and sulci are symmetric. Denise-white differentiation is maintained. There is no evidence for acute intracranial hemorrhage, mass/mass effect, pathology or infarction. No extra-axial fluid collection. Calvarium is intact. Partial opacification and mucoperiosteal changes are appreciated primarily involving the right frontal, right sphenoid, and moderate bilateral ethmoid sinuses consistent with acute / chronic sinusitis. Impression: Age related atrophy and microvascular ischemic changes. Acute on chronic sinusitis. Electronically Signed by Hammad Steel MD 09/13/2018 04:02 A
== END ==
LOC: M RAD 17:13
PROVIDERS: ATTEND Family Medicine
DX: R51 Headache (principal); J01.80 Other acute sinusitis; J01.81 Other acute recurrent sinusitis

== ENCOUNTER 2018-09-14 08:45 | Day surgery (SDC) | payer OTHER ==
[~2018-09-14] VITALS: Ht 165.1 cm; Wt 57.6 kg
[~2018-09-14 08:45] MED LIST changes: +NS 1,000 ML IV ONE; -OMEP-218 PO
[2018-09-14] MEDS ORDERED: OMEP-218 PO (09:30)
[2018-09-14] MEDS ORDERED: ENTR1TAB PO (09:32)
--- NOTE | 2018-09-14 10:28 | ROOR ---
Patient Name: Lupe Knutson Procedure Date: 09/14/2018 10:05 AM Date of : 1945 Age: 73 Room: [facility] Gender: Female Note Status: Finalized Procedure: Colonoscopy Indications: Screening for colorectal malignant neoplasm Providers: Reza UGARTE MD Referring MD: Chantelle Rodriguez MD Requesting Provider: Medicines: Monitored Anesthesia Care Complications: No immediate complications. Procedure: Pre-Anesthesia Assessment: - The heart rate, respiratory rate, oxygen saturations, blood pressure, adequacy of pulmonary ventilation, and response to care were monitored throughout the procedure. The Colonoscope was introduced through the anus and advanced to the terminal ileum, with identification of the appendiceal orifice and IC valve. The colonoscopy was performed without difficulty. The patient tolerated the procedure well. The quality of the bowel preparation was good. Findings: The perianal and digital rectal examinations were normal. The colon (entire examined portion) was moderately redundant. Mild sigmoid diverticulosis and small internal hemorrhoids. The exam was otherwise without abnormality on direct and retroflexion views. Impression: - Redundant colon. - Mild sigmoid diverticulosis and small internal hemorrhoids. - The colon examination was otherwise normal on direct and retroflexion views. - No specimens collected. Recommendation: - Repeat colonoscopy in 10 years for screening purposes. Reza Ugarte MD Reza UGARTE MD 09/14/2018 10:28:15 AM Electronically signed by Reza UGARTE MD Number of Addenda: 0 Note Initiated On: 09/14/2018 10:05 AM Estimated Blood Loss: Estimated blood loss: none.
[2018-09-14] MEDS ORDERED: PROPOFOL 200 MG/20 ML VIAL As Ordered ONE (10:33)
[2018-09-14] MEDS ORDERED: LIDOCAINE 2% INJ 100 MG/5 ML SDV (FOR ANES.) As Ordered ONE (10:33)
[2018-09-14 10:47] VITALS: BP 108/64
== END 2018-09-14 11:13 | disposition home or self-care (01) ==
LOC: M OPP 08:45
PROVIDERS: ATTEND Internal Medicine Gastroenterology
DX: K64.8 Other hemorrhoids (principal); K57.30 Diverticulosis of large intestine without perforation or abscess without bleeding; Q43.8 Other specified congenital malformations of intestine; Z12.11 Encounter for screening for malignant neoplasm of colon

== ENCOUNTER → 2018-09-29 | Outpatient (REF) | payer OTHER ==
[~2018-09-29] MED LIST changes: -NS 1,000 ML IV ONE; +OMEP-218 PO
== END ==
LOC: M SFHCPLAZ 10:14
PROVIDERS: ATTEND Family Medicine
DX: R19.7 Diarrhea, unspecified (principal)

== ENCOUNTER → 2018-10-01 | Outpatient (CLI) | payer OTHER ==
[~2018-10-01] MED LIST changes: +CALCD50TA PO; +DIGO0.12 PO; -METO1TAB33
[2018-10-01 13:07] LABS: BASO % 0.9 % (0.0-1.0); EOS # 0.2 10^3/uL (0.0-0.50); EOS % 3.5 % (0.0-3.0); HEMATOCRIT 42.6 % (36.0-47.0); HEMOGLOBIN 14.2 g/dl (12.0-15.5); LYMPH # 1.6 10^3/uL (1.5-4.5); LYMPH % 34.9 % (24.0-44.0); MEAN CORPUSCULAR HEMOGLOBIN 32.6 pg (27.0-33.0); MEAN CORPUSCULAR HGB CONC 33.3 g/dl (32.0-36.5); MEAN CORPUSCULAR VOLUME 97.9 fl (80.0-96.0); MONO # 0.5 10^3/uL (0.0-0.8); MONO % 11.2 % (0.0-5.0); NEUTROPHILS # 2.2 10^3/uL (1.8-7.7); NEUTROPHILS % 49.3 % (36.0-66.0); PLATELET COUNT, AUTOMATED 146 10^3/uL (150-450); RED BLOOD COUNT 4.35 10^6/uL (4.00-5.40); WHITE BLOOD COUNT 4.6 10^3/uL (4.0-10.0)
[2018-10-01 13:33] LABS: ALBUMIN 3.6 GM/DL (3.2-5.2); ALT/SGPT 24 U/L (12-78); BILIRUBIN,TOTAL 0.5 MG/DL (0.2-1.0); BLOOD UREA NITROGEN 12 MG/DL (7-18); CALCIUM LEVEL 8.7 MG/DL (8.8-10.2); CARBON DIOXIDE LEVEL 30 MEQ/L (21-32); CHLORIDE LEVEL 108 MEQ/L (98-107); GLOMERULAR FILTRATION RATE > 60.0 (>39); GLUCOSE, FASTING 82 MG/DL (70-100); POTASSIUM SERUM 4.1 MEQ/L (3.5-5.1); SODIUM LEVEL 141 MEQ/L (136-145); TOTAL PROTEIN 6.3 GM/DL (6.4-8.2)
== END ==
LOC: M SMT 09:24
PROVIDERS: ATTEND Family Medicine
DX: R19.7 Diarrhea, unspecified (principal)
CPT/HCPCS: 36415; 80053; 85025; G0463

== ENCOUNTER → 2019-01-25 | Outpatient (CLI) | payer OTHER ==
[~2019-01-25] MED LIST changes: -ARTI99.0 OU; +ARTIDRO2 OU; -DIGO0.12 PO; +DIGO0.123 PO; +OMEP1CAP73 PO; -OMEP20CA3 PO
[2019-01-25 13:39] LABS: ALBUMIN 3.8 GM/DL (3.2-5.2); ALT/SGPT 23 U/L (12-78); BILIRUBIN,TOTAL 0.5 MG/DL (0.2-1.0); BLOOD UREA NITROGEN 15 MG/DL (7-18); CALCIUM LEVEL 9.5 MG/DL (8.8-10.2); CARBON DIOXIDE LEVEL 30 MEQ/L (21-32); CHLORIDE LEVEL 105 MEQ/L (98-107); CHOLESTEROL LEVEL 191 MG/DL (<200); CHOLESTEROL RISK RATIO 2.652 (<5); CREATININE FOR GFR 0.85 MG/DL (0.55-1.30); GLOMERULAR FILTRATION RATE > 60.0 (>39); GLUCOSE, FASTING 113 MG/DL (70-100); HDL CHOLESTEROL 72 MG/DL (>40); LDL CHOLESTEROL 93 MG/DL (<100); NON-HDL-C 119 MG/DL; POTASSIUM SERUM 4.2 MEQ/L (3.5-5.1); SODIUM LEVEL 142 MEQ/L (136-145); TOTAL PROTEIN 6.6 GM/DL (6.4-8.2); TRIGLYCERIDES LEVEL 130 MG/DL (<150)
== END ==
LOC: M SMT 09:23
PROVIDERS: ATTEND Internal Medicine Cardiovascular Disease
DX: E78.5 Hyperlipidemia, unspecified (principal)

== ENCOUNTER → 2019-04-02 | Outpatient (CLI) | payer OTHER ==
[~2019-04-02] MED LIST changes: +DIGO0.12 PO; -DIGO0.123 PO; -OMEP1CAP73 PO; +OMEP20CA4 PO
[2019-04-02 13:51] LABS: BLOOD UREA NITROGEN 16 MG/DL (7-18); CREATININE FOR GFR 0.95 MG/DL (0.55-1.30); GLOMERULAR FILTRATION RATE > 60.0 (>39)
== END ==
LOC: M LAB 12:38
PROVIDERS: ATTEND Internal Medicine Hematology & Oncology
DX: C82.13 Follicular lymphoma grade II, intra-abdominal lymph nodes (principal)
CPT/HCPCS: 36415; 82565; 84520; 90471; 90682; G0463

== ENCOUNTER → 2019-04-03 | Outpatient (CLI) | payer OTHER ==
[~2019-04-03] MED LIST changes: +GASTROGRAFIN SOLUTION 30ML (Q9963) As Ordered ONE; +ISOVUE-370 76% 100ML VIAL (Q9967) As Ordered ONE
--- NOTE | 2019-04-03 10:06 | REP ---
Clinical: Follicular lymphoma grade II. Followup. Technique: Axial contrast enhanced images from the thoracic inlet to the upper abdomen with coronal and sagittal re-formations using 100 ml Isovue 370 intravenous contrast material. Comparison: 05/15/2018. Findings: Lung santana demonstrate generalized age-related chronic interstitial changes along with left basilar scarring. No acute consolidation, significant nodule or mass lesion. No pleural effusion. No pneumothorax. Tracheobronchial tree is relatively normal. Stable cardiomegaly with pacemaker again noted. No pericardial effusion. Thoracic aorta without aneurysm or dissection. No adenopathy. Musculoskeletal structures demonstrate degenerative changes. Impression: 1. Chronic stable changes including left basilar scarring. 2. No acute mediastinal or pleuroparenchymal process. 3. No adenopathy. Electronically Signed by Hammad Steel MD 04/03/2019 09:58 A
--- NOTE | 2019-04-03 10:11 | REP ---
Clinical: Follicular lymphoma grade II. Followup. Technique: Axial contrast enhanced images from the lung bases to the pubic symphysis using oral (per protocol) and 100 ml Isovue 370 intravenous contrast material. Comparison: 09/17/2017. Findings: Lung bases demonstrate cardiomegaly along with chronic interstitial changes and left basilar scarring. Liver, spleen, pancreas, bilateral adrenal glands are normal. Kidneys include bilateral cysts measuring up to 2.3 cm in the mid pole right kidney and 1.7 cm along the posterior upper pole left kidney. Cholelithiasis noted without acute cholecystitis. The enteric system is without obstruction or acute inflammatory process. Pelvis demonstrates normal bladder and age-appropriate uterus/adnexa. No obvious mass lesion. No intraperitoneal or retroperitoneal adenopathy. Atherosclerotic changes to the aorta and vasculature without aneurysm or dissection. No ascites. No free air. Musculoskeletal structures demonstrate degenerative changes without focal osseous abnormality. Impression: 1. No mass. No adenopathy. No ascites. 2. Cholelithiasis. 3. Bilateral renal cysts. Electronically Signed by Hammad Steel MD 04/03/2019 10:02 A
== END ==
LOC: M RAD 07:57
PROVIDERS: ATTEND Internal Medicine Hematology & Oncology
DX: C82.13 Follicular lymphoma grade II, intra-abdominal lymph nodes (principal)

== ENCOUNTER → 2019-05-30 | Outpatient (REF) | payer OTHER ==
[~2019-05-30] MED LIST changes: -DIGO0.12 PO; +DIGO0.123 PO; -GASTROGRAFIN SOLUTION 30ML (Q9963) As Ordered ONE; -ISOVUE-370 76% 100ML VIAL (Q9967) As Ordered ONE; +OMEP-172 PO; -OMEP20CA4 PO
[2019-05-30 18:08] LABS: APPEARANCE, URINE CLEAR (CLEAR); BACTERIA, URINE AUTO 2+ (NEGATIVE); BILIRUBIN, URINE AUTO NEGATIVE (NEGATIVE); BLOOD, URINE BLOOD 2+ (NEGATIVE); COLOR, URINE YELLOW (YELLOW); GLUCOSE, URINE (UA) AUTO NEGATIVE (NEGATIVE); KETONE, URINE AUTO NEGATIVE (NEGATIVE); LEUKOCYTE ESTERASE, URINE AUTO 3+ (NEGATIVE); NITRITE, URINE AUTO NEGATIVE (NEGATIVE); PROTEIN, URINE AUTO NEGATIVE (NEGATIVE); RBC, URINE AUTO 27 /HPF (0-3); SPECIFIC GRAVITY URINE AUTO 1.009 (1.002-1.035); SQUAMOUS EPITHELIAL CELL UR AU 0 /HPF (0-6); UROBILINOGEN, URINE AUTO 0.2 mg/dL (0.0-2.0); WBC, URINE AUTO 144 /HPF (0-3)
== END ==
LOC: M SFHCLERA 13:43
PROVIDERS: ATTEND Family Medicine
DX: R35.0 Frequency of micturition (principal)
CPT/HCPCS: 81001; 81002; 87088; 87186; G0463

== ENCOUNTER → 2019-06-26 | Outpatient (CLI) | payer OTHER ==
[~2019-06-26] MED LIST changes: -OMEP-172 PO; +OMEP1CAP73 PO
--- NOTE | 2019-06-27 03:27 | REP ---
Clinical: Palpable mass. Technique: Real time rouse scale and color ultrasound examination using linear high frequency transducer. Findings: Directed ultrasound examination at the level of the left humeral head in the region of palpable mass demonstrates a well encapsulated avascular isoechoic mass in the subcutaneous tissues measuring 5.0 x 1.2 x 2.9 cm which may represent lipoma. 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 Electronically Signed by Hammad Steel MD 06/27/2019 03:19 A
== END ==
LOC: M RAD 12:13
PROVIDERS: ATTEND Dermatology
DX: D17.22 Benign lipomatous neoplasm of skin and subcutaneous tissue of left arm (principal)

== ENCOUNTER → 2019-08-08 | Outpatient (CLI) | payer OTHER ==
[~2019-08-08] MED LIST changes: -ARTIDRO2 OU; +POLYOPD OU
[2019-08-08 14:52] LABS: CREATININE FOR GFR 0.84 MG/DL (0.55-1.30); GLOMERULAR FILTRATION RATE > 60.0 (>39)
== END ==
LOC: M PLALAB 13:43
PROVIDERS: ATTEND Internal Medicine Hematology & Oncology
DX: C82.90 Follicular lymphoma, unspecified, unspecified site (principal)

== ENCOUNTER → 2019-08-12 | Outpatient (CLI) | payer OTHER ==
[~2019-08-12] MED LIST changes: +ISOVUE-370 76% 100ML VIAL (Q9967) As Ordered ONE
--- NOTE | 2019-08-12 08:23 | REPVR ---
PROCEDURE INFORMATION: Exam: CT Head Without And With Contrast Exam date and time: 08/12/2019 7:55 AM Age: 74 years old Clinical indication: Condition or disease; Other: Follicular lymphoma scalp; Additional info: Follicular lymphoma scalp c82.98 TECHNIQUE: Imaging protocol: Computed tomography of the head without and with intravenous contrast. Radiation optimization: All CT scans at this facility use at least one of these dose optimization techniques: automated exposure control; mA and/or kV adjustment per patient size (includes targeted exams where dose is matched to clinical indication); or iterative reconstruction. Contrast material: Isovue 370; Contrast volume: 75 ml; Contrast route: IV; COMPARISON: CT Head without contrast 09/12/2018 5:24 PM FINDINGS: Brain: Moderate hypoattenuating foci are noted in the central cerebral, posterior superior periatrial and anterior lateral ventricular periventricular white matter bilaterally. No abnormal intracranial enhancement. No intracranial hemorrhage. No mass or acute cortical infarction identified. Ventricles: Prominence of the ventricular system and subarachnoid spaces is consistent with the patient's age of 74 years. Bones/joints: No destructive bony process identified. Sinuses: A cyst/polyp is present in the right sphenoid sinus. Mastoid air cells: Visualized mastoid air cells are well aerated. Soft tissues: Unremarkable. Vasculature: Atherosclerotic calcifications are present involving the carotid artery siphons bilaterally and the left vertebral artery. IMPRESSION: 1. Age appropriate supratentorial and infratentorial atrophy. 2. Moderate chronic white matter microvascular ischemic disease. 3. No acute intracranial abnormality identified. 4. No specific scalp mass identified, as visualized. Electronically signed by: Nicolas Bautista On 08/12/2019 08:22:58 AM
== END ==
LOC: M RAD 07:16
PROVIDERS: ATTEND Internal Medicine Hematology & Oncology
DX: C82.98 Follicular lymphoma, unspecified, lymph nodes of multiple sites (principal)

== ENCOUNTER → 2019-08-13 | Outpatient (REF) | payer OTHER ==
[~2019-08-13] MED LIST changes: -ISOVUE-370 76% 100ML VIAL (Q9967) As Ordered ONE
[2019-08-13 18:17] LABS: C REACTIVE PROTEIN QUANTITATIV < 0.30 MG/DL (0.00-0.30); RHEUMATOID FACTOR QUANT < 10.0 IU/ML (<15.0)
== END ==
LOC: M SFHCPLAZ 15:03
PROVIDERS: ATTEND Family Medicine
DX: M25.50 Pain in unspecified joint (principal)

== ENCOUNTER → 2019-08-15 | Outpatient (REF) | payer OTHER | LOC: M LAB REF 09:11 | PROVIDERS: ATTEND Dermatology | DX: D48.9 Neoplasm of uncertain behavior, unspecified (principal) ==

== ENCOUNTER → 2019-10-24 | Outpatient (CLI) | payer OTHER ==
[2019-10-24 14:08] LABS: BASO # 0.1 10^3/uL (0.0-0.2); BASO % 0.5 % (0.0-1.0); EOS # 0.2 10^3/uL (0.0-0.5); EOS % 1.6 % (0.0-3.0); HEMATOCRIT 44.7 % (36.0-47.0); HEMOGLOBIN 15.1 g/dl (12.0-15.5); LYMPH # 2.9 10^3/uL (1.5-5.0); LYMPH % 30.5 % (24.0-44.0); MEAN CORPUSCULAR HEMOGLOBIN 33.3 pg (27.0-33.0); MEAN CORPUSCULAR HGB CONC 33.8 g/dl (32.0-36.5); MEAN CORPUSCULAR VOLUME 98.5 fl (80.0-96.0); MONO % 10.5 % (0.0-5.0); NEUTROPHILS # 5.4 10^3/uL (1.5-8.5); NEUTROPHILS % 56.5 % (36.0-66.0); PLATELET COUNT, AUTOMATED 146 10^3/uL (150-450); RED BLOOD COUNT 4.54 10^6/uL (4.00-5.40); WHITE BLOOD COUNT 9.5 10^3/uL (4.0-10.0)
[2019-10-24 14:37] LABS: CREATININE FOR GFR 1.05 MG/DL (0.55-1.30); GLOMERULAR FILTRATION RATE 54.2 (>39)
[2019-10-24 14:38] LABS: ALBUMIN 3.8 GM/DL (3.2-5.2); BILIRUBIN,TOTAL 0.5 MG/DL (0.2-1.0); POTASSIUM SERUM 4.2 MEQ/L (3.5-5.1); TOTAL PROTEIN 6.8 GM/DL (6.4-8.2)
== END ==
LOC: M PLALAB 13:30
PROVIDERS: ATTEND Internal Medicine Hematology & Oncology
DX: C82.13 Follicular lymphoma grade II, intra-abdominal lymph nodes (principal)

== ENCOUNTER → 2019-11-06 | Outpatient (CLI) | payer OTHER ==
[~2019-11-06] MED LIST changes: +GASTROGRAFIN SOLUTION 30ML (Q9963) As Ordered ONE; +ISOVUE-370 76% 100ML VIAL As Ordered ONE
--- NOTE | 2019-11-07 07:27 | REP ---
Clinical: Lymphoma. Followup/restaging. Technique: Axial contrast enhanced images from the lung bases to the pubic symphysis using oral (per protocol) and 100 ml Isovue 370 intravenous contrast material with coronal and sagittal re-formations. Comparison: 04/03/2019. Findings: Liver, spleen, pancreas, and bilateral adrenal glands are normal. Cholelithiasis noted without acute cholecystitis. The kidneys demonstrate benign stable bilateral cysts measuring 2.2 cm in the right kidney and approximately 2.0 cm in left kidney. The enteric system is without obstruction or acute inflammatory process. Normal terminal ileum and appendix are identified in the right lower quadrant. Scattered sigmoid diverticula noted without acute diverticulitis. Pelvis demonstrates normal bladder and age-appropriate uterus/adnexa. No ascites. No free air. No intraperitoneal or retroperitoneal adenopathy. No mass lesion. Atherosclerotic changes to the aorta and vasculature noted without aneurysm or dissection. Musculoskeletal structures demonstrate degenerative changes without focal abnormality. Impression: 1. Cholelithiasis. 2. Benign stable solitary bilateral renal cysts. 3. Few scattered sigmoid diverticula. 4. No evidence for adenopathy, mass lesion, ascites, or recurrence. Electronically Signed by Hammad Steel MD 11/07/2019 07:17 A
--- NOTE | 2019-11-07 07:33 | REP ---
Clinical: History of lymphoma. Follow-up / restaging. Technique: Axial contrast enhanced images from the thoracic inlet to the upper abdomen followed by CT of the abdomen and pelvis using 100 ml Isovue 370 intravenous contrast material. Coronal and sagittal re-formations obtained. Comparison: 04/03/2019 Findings: The lung santana are relatively well aerated and clear. Small bilateral posterior subpleural densities are identified in the right and left lower lobes. These findings are nonspecific and may represent small focal areas of dependent change although active pathology cannot definitively be excluded. No further consolidation, significant nodule or mass lesion appreciated. No effusion. No pneumothorax. Tracheobronchial tree is patent. No axillary, hilar, or mediastinal adenopathy is appreciated. Stable cardiomegaly is noted. No pericardial effusion. The thoracic aorta is without aneurysm or dissection. [id number] identified with tip in the SVC. Pacemaker in stable satisfactory position. Osseous structures demonstrate age-related changes without significant acute abnormality. Impression: 1. Very small posterior subpleural densities which may reflect focal areas of dependent change. However, active disease cannot definitively be excluded. Short-term follow-up examination at 3-6 months may be warranted. 2. No further acute mediastinal or pleuroparenchymal process appreciated. Specifically, no adenopathy, effusion, significant nodule or mass lesion identified. Electronically Signed by Hammad Steel MD 11/07/2019 07:25 A
== END ==
LOC: M RAD 12:32
PROVIDERS: ATTEND Internal Medicine Hematology & Oncology
DX: C82.98 Follicular lymphoma, unspecified, lymph nodes of multiple sites (principal)
CPT/HCPCS: 71260; 74177; Q9963; Q9967

== ENCOUNTER → 2019-12-02 | Outpatient (CLI) | payer OTHER ==
[~2019-12-02] MED LIST changes: -GASTROGRAFIN SOLUTION 30ML (Q9963) As Ordered ONE; -ISOVUE-370 76% 100ML VIAL As Ordered ONE
[2019-12-02 16:27] LABS: CHOLESTEROL RISK RATIO 2.824 (<5)
== END ==
LOC: M PLALAB 11:21
PROVIDERS: ATTEND Physician Assistant
DX: E78.2 Mixed hyperlipidemia (principal); I48.20 Chronic atrial fibrillation, unspecified

== ENCOUNTER → 2019-12-02 | Outpatient (REF) | payer OTHER ==
[2019-12-02 16:16] LABS: ALBUMIN 3.6 GM/DL (3.2-5.2); ALT/SGPT 29 U/L (12-78); BILIRUBIN,TOTAL 0.5 MG/DL (0.2-1.0); BLOOD UREA NITROGEN 13 MG/DL (7-18); CALCIUM LEVEL 8.9 MG/DL (8.8-10.2); CARBON DIOXIDE LEVEL 28 MEQ/L (21-32); CHLORIDE LEVEL 107 MEQ/L (98-107); CHOLESTEROL LEVEL 163 MG/DL (<200); CHOLESTEROL RISK RATIO 2.963 (<5); CREATININE FOR GFR 0.86 MG/DL (0.55-1.30); GLOMERULAR FILTRATION RATE > 60.0 (>39); GLUCOSE, FASTING 93 MG/DL (70-100); HDL CHOLESTEROL 55 MG/DL (>40); LDL CHOLESTEROL 88 MG/DL (<100); NON-HDL-C 108 MG/DL; SODIUM LEVEL 141 MEQ/L (136-145); TOTAL PROTEIN 6.3 GM/DL (6.4-8.2); TRIGLYCERIDES LEVEL 101 MG/DL (<150)
== END ==
LOC: M PLALAB 11:20
PROVIDERS: ATTEND Family Medicine
DX: I50.22 Chronic systolic (congestive) heart failure (principal); I42.0 Dilated cardiomyopathy; E78.2 Mixed hyperlipidemia; I48.20 Chronic atrial fibrillation, unspecified

== ENCOUNTER → 2020-01-02 | Outpatient (CLI) | payer OTHER ==
[~2020-01-02] MED LIST changes: +ACET-897 PO; +BISAC5TA PO; +DOCU100C16 PO; +FAMO40TA3 PO; +METO100T5 PO
--- NOTE | 2020-01-26 12:35 | REPMRS ---
Patient History The patient states she has not had a clinical breast exam in over a year. Patient is postmenopausal, has history of other cancer at age 58, and had previous chemotherapy at age 58. Family history of colorectal cancer at age 68 in mother. Digital Woman Screen Mammo: January 02, 2020 - Exam #: [id number] Bilateral CC and MLO view(s) were taken. Technologist: Eliza Judge, Technologist Prior study comparison: June 06, 2017, digital woman screen mammo, performed at [facility]. December 01, 2015, digital woman screen mammo, performed at [facility]. November 28, 2014, bilateral digital mammo screening bilat performed at [facility]. FINDINGS: There are scattered fibroglandular densities. The Volpara volumetric breast density category is:B. There is a pacemaker power plant projecting over the right axilla on the MLO view. There has been no change in the appearance of the mammogram from the prior studies. There is a mild amount of scattered fibroglandular density which is fairly symmetric. There is no interval development of dominant mass, architectural distortion, or grouped microcalcification suggestive of malignancy. 3-D tomosynthesis shows no additional findings. Assessment: BI-RADS/ACR category 2 mammogram. Benign Findings. Recommendation Routine screening mammogram of both breasts in 1 year (for women over age 40). This patient's Lifetime Breast Cancer Risk is estimated at 2.7 %. This mammogram was interpreted with the aid of an FDA-approved computer-aided dectection system. Electronically Signed By: Yaron Love MD 01/26/20 [id number]
== END ==
LOC: M WHC 09:54
PROVIDERS: ATTEND Family Medicine
DX: Z12.31 Encounter for screening mammogram for malignant neoplasm of breast (principal)

== ENCOUNTER 2020-01-20 17:30 | Inpatient (IN) | payer OTHER ==
[~2020-01-20] VITALS: Ht 165.1 cm; Wt 68.7 kg
[~2020-01-20 17:30] MED LIST changes: -ACET-897 PO; -BISAC5TA PO; -DOCU100C16 PO; -FAMO40TA3 PO; -METO100T5 PO
[2020-01-20] MEDS ORDERED: methocarbamoL 750 MG TAB As Ordered ONE (22:12)
[2020-01-20] MEDS ORDERED: LIDOCAINE 4% CREAM 5GM (LMX4) As Ordered ONE (22:16)
[2020-01-21] MEDS ORDERED: traMADol 50 MG TAB As Ordered ONE (01:10)
[2020-01-21] MEDS ORDERED: ENTRESTO 24-26MG TABLET (SACUBITRIL/VALSARTAN) ONE (09:00)
[2020-01-21] MEDS ORDERED: DABIGATRAN ETEXILATE 75 MG CAP (PRADAXA) ONE (09:00)
[2020-01-21] MEDS ORDERED: DOCUSATE SODIUM 100 MG CAP As Ordered ONE (11:45)
[2020-01-21] MEDS ORDERED: METOPROLOL TARTRATE 100 MG TAB As Ordered ONE (11:45)
[2020-01-21] MEDS ORDERED: DIGOXIN 0.125 MG TAB As Ordered ONE (11:46)
[2020-01-21] MEDS ORDERED: METO100T5 PO (13:55)
[2020-01-21] MEDS ORDERED: ACET-897 PO (13:55)
[2020-01-21] MEDS ORDERED: FAMO40TA3 PO (13:55)
[2020-01-21] MEDS ORDERED: ONDANSETRON 4 MG TAB PO PRN (14:15)
[2020-01-21] MEDS ORDERED: SLF 3 ML SYR IV PRN (14:15)
[2020-01-21] MEDS ORDERED: BISACODYL 5 MG TAB PO PRN (19:00)
[2020-01-21] MEDS ORDERED: PERCOCET 5MG/325MG TAB PO PRN (19:00)
[2020-01-21] MEDS: ENTRESTO 24-26MG TABLET (SACUBITRIL/VALSARTAN) PO SCH (20:09)
[2020-01-21] MEDS: DOCUSATE SODIUM 100 MG CAP PO SCH (20:09)
[2020-01-21] MEDS: SLF 3 ML SYR IV SCH (20:10)
[2020-01-21] MEDS: METOPROLOL TARTRATE 100 MG TAB PO SCH (20:10)
[2020-01-21] MEDS ORDERED: RAMELTEON 8 MG TAB (ROZEREM) PO PRN (21:00)
[2020-01-21 22:00] VITALS: BP 117/65
[2020-01-22] VITALS (11 sets, daily range): BP systolic 88–118; BP diastolic 47–71; O2SAT 94
[2020-01-22] MEDS: SLF 3 ML SYR IV SCH ×3 (05:55→21:58)
[2020-01-22 07:19] LABS: BASO % 0.5 % (0.0-1.0); EOS # 0.1 10^3/uL (0.0-0.5); EOS % 2.4 % (0.0-3.0); HEMATOCRIT 40.3 % (36.0-47.0); HEMOGLOBIN 13.5 g/dl (12.0-15.5); LYMPH # 1.8 10^3/uL (1.5-5.0); LYMPH % 33.3 % (24.0-44.0); MEAN CORPUSCULAR HEMOGLOBIN 33.3 pg (27.0-33.0); MEAN CORPUSCULAR HGB CONC 33.5 g/dl (32.0-36.5); MEAN CORPUSCULAR VOLUME 99.3 fl (80.0-96.0); MONO # 0.6 10^3/uL (0.0-0.8); MONO % 11.6 % (0.0-5.0); NEUTROPHILS # 2.9 10^3/uL (1.5-8.5); PLATELET COUNT, AUTOMATED 146 10^3/uL (150-450); RED BLOOD COUNT 4.06 10^6/uL (4.00-5.40); WHITE BLOOD COUNT 5.5 10^3/uL (4.0-10.0)
[2020-01-22 07:37] LABS: BLOOD UREA NITROGEN 15 MG/DL (7-18); CALCIUM LEVEL 8.7 MG/DL (8.8-10.2); CARBON DIOXIDE LEVEL 28 MEQ/L (21-32); CHLORIDE LEVEL 110 MEQ/L (98-107); CREATININE FOR GFR 0.76 MG/DL (0.55-1.30); GLOMERULAR FILTRATION RATE > 60.0 (>39); GLUCOSE, FASTING 111 MG/DL (70-100); MAGNESIUM LEVEL 2.1 MG/DL (1.8-2.4); POTASSIUM SERUM 4.3 MEQ/L (3.5-5.1); SODIUM LEVEL 142 MEQ/L (136-145)
[2020-01-22] MEDS: DOCUSATE SODIUM 100 MG CAP PO SCH ×2 (08:33→21:58)
[2020-01-22] MEDS: METOPROLOL TARTRATE 100 MG TAB PO SCH ×2 (08:34→21:00)
[2020-01-22] MEDS: DIGOXIN 0.125 MG TAB PO SCH (08:34)
[2020-01-22] MEDS ORDERED: FUROSEMIDE 20 MG TAB PO SCH (09:00)
[2020-01-22] MEDS ORDERED: BUPIVACAINE/EPIN 0.25% 30 ML VIAL As Ordered ONE (10:13)
--- NOTE | 2020-01-22 10:37 | IPNPDOC ---
Text Note Date of Service The patient was seen on 01/22/20. NOTE No acute events overnight. Her pain is much improved today. She is able to move in bed and touch it without pain. She was considering cancelling her surgery, but the pain came back with walking. She will be scheduled for RA LIH repair this afternoon. Consent will be signed before the procedure. No changes to H+P. Chriss Cody DO VS,Radhae, I+O VS, Rejibone, I+O Laboratory Tests 01/22/20 06:40 Vital Signs Date Time Temp Pulse Resp B/P (MAP) Pulse Ox O2 Delivery O2 Flow Rate FiO2 01/22/20 08:34 74 118/66 01/22/20 06:00 97.5 16 96 Room Air I&O- Last 24 Hours up to 6 AM 01/22/20 06:00 Intake Total 240 ml Output Total 700 ml Balance -460 ml DAVID CODY DO Jan 22, 2020 10:37
[2020-01-22] MEDS ORDERED: ceFAZolin 1GM VIAL (J0690 PER 500MG) As Ordered ONE (11:31)
[2020-01-22] MEDS ORDERED: SUGAMMADEX SODIUM 500 MG/5 ML VIAL (BRIDION) As Ordered ONE (12:09)
[2020-01-22] MEDS ORDERED: dexameTHASONE 4 MG/ML 1ML VIAL (J1100 PER 1MG) As Ordered ONE (12:09)
[2020-01-22] MEDS ORDERED: ONDANSETRON 4MG/2ML VIAL As Ordered ONE (12:09)
[2020-01-22] MEDS ORDERED: fentaNYL 250 MCG/5 ML INJECTION (J3010) As Ordered ONE (12:09)
[2020-01-22] MEDS ORDERED: ETOMIDATE INJ 20MG/10ML VIAL As Ordered ONE (12:09)
[2020-01-22] MEDS ORDERED: MIDAZOLAM INJ 2MG/2ML VIAL (J2250 PER 1MG) As Ordered ONE (12:09)
[2020-01-22] MEDS ORDERED: LIDOCAINE 2% 100MG/5ML SDV (FOR ANES.) As Ordered ONE (12:09)
[2020-01-22] MEDS ORDERED: METOCLOPRAMIDE INJ 10MG/2ML VIAL (J2765 PER 1) As Ordered ONE (12:09)
[2020-01-22] MEDS ORDERED: propofoL 200 MG/20 ML VIAL As Ordered ONE (12:09)
[2020-01-22] MEDS ORDERED: ROCURONIUM BROMIDE 50 MG/5 ML VIAL As Ordered ONE (12:09)
--- NOTE | 2020-01-22 13:34 | IPNPDOC ---
Date Seen The patient was seen on 01/22/20. Progress Note SUBJECTIVE: Patient is a 74 yo F with a hx of CHF, afib. Admitted for L hip pain 2/2 L inguinal hernia. Improved, doing well. Denies fevers, chills, n/v/d, chest pain SOB. Pain in L groin worse on movement. Surgery offered. Patient would like to proceed with laparoscopic hernia repair today. OBJECTIVE PHYSICAL EXAMINATION: VITAL SIGNS: Please see below. GENERAL: NAD, comfortable, sitting upright in bed HEENT: PERRLA, EOMI CARDIOVASCULAR: RRR, normal S1, S2. RESPIRATORY: Lungs CTAB, no wheezes, no rales. ABDOMINAL: soft, non tender. L inguinal hernia reduced. No overlying erythema, induration at site. EXTREMITIES: No deformity. Normal ROM NEUROLOGICAL: No focal neuro deformity PSYCHOLOGICAL: wl LABORATORY DATA, IMAGING STUDIES, MICROBIOLOGY: Please see below. DVT prophylaxis ordered?: Y ASSESSMENT AND PLAN: This is a 74 yo F with a hx of CHF, AFIB, Non Hodgin's Lymphoma (remission). Admitted for L hip pain 2/2 L inguinal hernia. For lap repair today. PROBLEMS: 1. L inguinal hernia: source of L hip pain. Reduced. Surgery following, patient for surgery. Hold AC, entresto, lasix prior to OR. 2. CHF: euvolemic. Entresto. Lasix. Metoprolol. Hold entresto, lasix morning of surgery. 3. Afib: AC on pradaxa. Metoprolol tartrate 100 mg q12h. Hold pradaxa 24 hrs prior to surgery. Continue with BB. Resume AC after surgery. 4. DVT ppx: pradaxa, SCDs perioperatively. Dispo: DC home once medically stable. VS, I&O, 24H, Rejibonfracisco Vital Signs/I&O Vital Signs Date Time Temp Pulse Resp B/P (MAP) Pulse Ox O2 Delivery O2 Flow Rate FiO2 01/22/20 08:34 74 118/66 01/22/20 06:00 97.5 16 96 Room Air I&O- Last 24 Hours up to 6 AM 01/22/20 06:00 Intake Total 240 ml Output Total 700 ml Balance -460 ml Laboratory Data 24H LABS Laboratory Tests 2 01/21/20 15:20: Coronavirus (COVID-19)(PCR) NEGATIVE 01/22/20 06:40: Immature Granulocyte % (Auto) 0.2, Neutrophils (%) (Auto) 52.0, Lymphocytes (%) (Auto) 33.3, Monocytes (%) (Auto) 11.6H, Eosinophils (%) (Auto) 2.4, Basophils (%) (Auto) 0.5, Neutrophils # (Auto) 2.9, Lymphocytes # (Auto) 1.8, Monocytes # (Auto) 0.6, Eosinophils # (Auto) 0.1, Basophils # (Auto) 0.0, Nucleated Red Blood Cells % (auto) 0.0, Anion Gap 4L, Glomerular Filtration Rate > 60.0, Calcium Level 8.7L, Magnesium Level 2.1 CBC/BMP Laboratory Tests 01/22/20 06:40 COURTNEY LEYVA MD Jan 22, 2020 08:48
[2020-01-22] MEDS ORDERED: ONDANSETRON 4MG/2ML VIAL IV PRN (13:45)
[2020-01-22] MEDS ORDERED: LR 1,000 ML IV SCH (13:45)
[2020-01-22] MEDS ORDERED: fentaNYL 100 MCG/2 ML INJECTION (J3010) IV PRN (13:45)
[2020-01-22] MEDS ORDERED: oxyCODONE 5MG TAB PO PRN (13:45)
[2020-01-22] MEDS ORDERED: oxyCODONE 5MG TAB As Ordered ONE (14:14)
[2020-01-22] MEDS: ENTRESTO 24-26MG TABLET (SACUBITRIL/VALSARTAN) PO SCH (21:58)
[2020-01-22] MEDS: DABIGATRAN ETEXILATE 75 MG CAP (PRADAXA) PO SCH (21:59)
[2020-01-23 00:45] VITALS: BP 90/50
[2020-01-23 03:30] VITALS: BP 116/67
[2020-01-23] MEDS: SLF 3 ML SYR IV SCH (06:27)
--- NOTE | 2020-01-23 06:59 | IPNPDOC ---
Date Seen The patient was seen on 01/23/20. Progress Note SUBJECTIVE: Doing well this morning. POD #1. S/p laparoscopic L inguinal hernia repair (as well as L femoral hernia repair). Mild is well tolerated. Ate full breakfast. Passing gas. Denies fevers, chills, n/v/d. Hypotensive last night, BP normalized this morning. Asymptomatic. AAO x 3. OBJECTIVE PHYSICAL EXAMINATION: VITAL SIGNS: Please see below. GENERAL: NAD, comfortable, sitting upright in bed HEENT: PERRLA, EOMI CARDIOVASCULAR: RRR, normal S1, S2. RESPIRATORY: Lungs CTAB, no wheezes, no rales. ABDOMINAL: soft, non tender. laparoscopic incisions sites at abdomen well dressed, clean and dry. Steristrips in place. No rigidity. BS+. EXTREMITIES: No deformity. Normal ROM NEUROLOGICAL: No focal neuro deformity PSYCHOLOGICAL: wnl LABORATORY DATA, IMAGING STUDIES, MICROBIOLOGY: Please see below. DVT prophylaxis ordered?: Y, NOAC. SCDs. ASSESSMENT AND PLAN: 74 y F with ahx of HTN, Afib, CHF. Presenting to [facility] ED with L hip pain, related to an incarcerated L inguinal hernia. Surgery was consulted. Hernia reduced on its own. Through shared decision making, patient opted for laparoscopic hernia repair. POD #1. S/p L inguinal (and L femoral) hernia repair. Doing well. PROBLEMS: . Hypotension: BP 90/50 overnight. Monitor vitals. Hold lasix and metoprolol this morning. Can resume next day. . L inguinal hernia: POD#1 s/p laparoscopic hernia repair. Hgb stable. Pain well controlled. Good appetite. No n/v/d. DC home with PCP and Gen Sx follow up. . CHF: euvolemic. Entresto. Lasix. Metoprolol. Hold BP meds this morning. . Afib: AC on pradaxa. Metoprolol tartrate 100 mg q12h (hold in am) . DVT ppx: pradaxa, SCDs perioperatively. DISPOSITION: DC home once BP normalizes, pain controlled, normal voiding. VS, I&O, 24H, Fishbone Vital Signs/I&O Vital Signs Date Time Temp Pulse Resp B/P (MAP) Pulse Ox O2 Delivery O2 Flow Rate FiO2 01/23/20 00:45 90/50 (63) 01/22/20 23:30 98.3 84 18 93 Room Air 01/22/20 14:15 2.0 I&O- Last 24 Hours up to 6 AM 01/23/20 06:00 Intake Total 1835 ml Output Total 5 ml Balance 1830 ml Laboratory Data CBC/BMP Laboratory Tests 01/23/20 06:57 Current Medications Current Medications Medications (Trade) Dose Ordered Sig/Ashley Route PRN Reason Start Time Stop Time Status Last Admin Dose Admin Bisacodyl (Dulcolax Tab) 5 mg DAILY PRN PO CONSTIPATION 01/21/20 19:00 Dabigatran (Pradaxa) 150 mg BID PO 01/21/20 21:00 01/22/20 21:59 Digoxin (Lanoxin) 0.125 mg DAILY PO 01/22/20 09:00 01/22/20 08:34 Docusate Sodium (Colace) 100 mg BID PO 01/21/20 21:00 01/22/20 21:58 Fentanyl Citrate (Sublimaze) 25 mcg Q5MP PRN IV PAIN LEVEL 5-10 01/22/20 13:45 01/22/20 15:00 DC Furosemide (Lasix) 20 mg DAILY PO 01/22/20 09:00 Hold Home Med (Med Rec Complete!) ASDIRECTED XX 01/21/20 14:00 01/21/20 14:08 DC Lactated Ringer's 1,000 ml @ 80 mls/hr [id number] IV 01/22/20 13:45 01/22/20 15:00 DC 01/22/20 13:10 Metoprolol Tartrate (Lopressor) 100 mg BID PO 01/21/20 21:00 01/22/20 08:34 Ondansetron HCl (ZOFRAN INJection) 4 mg Q4HP PRN IV NAUSEA OR VOMITING 01/22/20 13:45 01/22/20 15:00 DC Ondansetron HCl (Zofran) 4 mg Q6H PRN PO NAUSEA/VOMITING 01/21/20 14:15 Oxycodone HCl (Roxicodone, Oxyir) 5 mg ASDIRECTED PRN PO PAIN LEVEL 1-4 01/22/20 13:45 01/22/20 15:00 DC 01/22/20 14:15 Oxycodone/ Acetaminophen (Percocet 5mg/ 325mg Tablet) 1 tab Q4H PRN PO MODERATE PAIN 01/21/20 19:00 Ramelteon (Rozerem) 8 mg QHS PRN PO INSOMNIA 01/21/20 21:00 01/21/20 20:09 Sacubitril/ Valsartan (Entresto 24-26 Mg) 1 tab BID PO 01/21/20 21:00 01/22/20 21:58 Sodium Chloride (Saline Lock Flush) 2 ml ASDIRECTED PRN IV SEE LABEL COMMENTS 01/21/20 14:15 Sodium Chloride (Saline Lock Flush) 2 ml SLF IV 01/21/20 22:00 01/23/20 06:27 Allergies Coded Allergies: ciprofloxacin (Verified Allergy, Unknown, 09/11/18) COURTNEY LEYVA MD Jan 23, 2020 06:59
[2020-01-23 07:21] LABS: BASO % 0.2 % (0.0-1.0); HEMATOCRIT 38.3 % (36.0-47.0); HEMOGLOBIN 12.7 g/dl (12.0-15.5); LYMPH # 1.6 10^3/uL (1.5-5.0); LYMPH % 17.9 % (24.0-44.0); MEAN CORPUSCULAR HEMOGLOBIN 32.5 pg (27.0-33.0); MEAN CORPUSCULAR HGB CONC 33.2 g/dl (32.0-36.5); MONO # 0.7 10^3/uL (0.0-0.8); MONO % 7.4 % (0.0-5.0); NEUTROPHILS # 6.5 10^3/uL (1.5-8.5); PLATELET COUNT, AUTOMATED 138 10^3/uL (150-450); RED BLOOD COUNT 3.91 10^6/uL (4.00-5.40); WHITE BLOOD COUNT 8.8 10^3/uL (4.0-10.0)
[2020-01-23 08:04] LABS: BLOOD UREA NITROGEN 15 MG/DL (7-18); CALCIUM LEVEL 8.5 MG/DL (8.8-10.2); CARBON DIOXIDE LEVEL 28 MEQ/L (21-32); CHLORIDE LEVEL 107 MEQ/L (98-107); CREATININE FOR GFR 0.77 MG/DL (0.55-1.30); GLOMERULAR FILTRATION RATE > 60.0 (>39); GLUCOSE, FASTING 151 MG/DL (70-100); POTASSIUM SERUM 4.3 MEQ/L (3.5-5.1); SODIUM LEVEL 138 MEQ/L (136-145)
[2020-01-23] MEDS: DOCUSATE SODIUM 100 MG CAP PO SCH (08:15)
[2020-01-23] MEDS: ENTRESTO 24-26MG TABLET (SACUBITRIL/VALSARTAN) PO SCH (08:15)
[2020-01-23] MEDS: DABIGATRAN ETEXILATE 75 MG CAP (PRADAXA) PO SCH (08:16)
[2020-01-23] MEDS: DIGOXIN 0.125 MG TAB PO SCH (08:16)
[2020-01-23] MEDS: METOPROLOL TARTRATE 100 MG TAB PO SCH (08:16)
[2020-01-23] MEDS ORDERED: ACET-897 PO (08:31)
[2020-01-23] MEDS ORDERED: BISAC5TA PO (08:31)
[2020-01-23] MEDS ORDERED: DOCU100C16 PO (08:31)
--- NOTE | 2020-01-23 08:48 | DS.PDOC ---
Discharge Summary General Date of Admission Jan 21, 2020 at 08:55 Date of Discharge 01/23/2020 Primary Care Physician: Terese Flynn MD Attending Physician: COURTNEY LEYVA MD Specialist/Consultants Involve: DAVID CA DO Discharge Summary PROCEDURES PERFORMED DURING STAY: Laparoscopic L inguinal and femoral hernia repair. ADMITTING DIAGNOSES: 1. Incarcerated L inguinal hernia. DISCHARGE DIAGNOSES: 1. Incarcerated indirect L inguinal hernia 2. L femoral hernia COMPLICATIONS/CHIEF COMPLAINT: Left Hip Pain. HISTORY OF PRESENT ILLNESS: developed worsening L hip while shopping, made worse with movement, hip flexion. Did not describe fevers, chills, n/v/d. Has not had prior episodes. Ambulating independently at home, no walking aids. Does not endorse hx of trauma, or any falls. Hx of CHF, afib, HTN. HOSPITAL COURSE: L femoral xray showing no fracture. General surgery consulted, noted an incarcerated L inguinal hernia. Discussion for laparascopic hernia repair. Hernia reduced on own next day, patient opted for surgical repair. No postoperative complications. Tolerated diet, pain. Mildly hypotensive overnight, BP medications were held lasix, metoprolol), to be resumed upon returning home. DISCHARGE MEDICATIONS: Please see below. ALLERGIES: Please see below. PHYSICAL EXAMINATION ON DISCHARGE: VITAL SIGNS: Please see below. GENERAL: NAD, comfortable, sitting upright in bed HEENT: PERRLA, EOMI CARDIOVASCULAR: RRR, normal S1, S2. RESPIRATORY: Lungs CTAB, no wheezes, no rales. ABDOMINAL: soft, non tender. laparoscopic incisions sites at abdomen well dressed, clean and dry. Steristrips in place. No rigidity. BS+. EXTREMITIES: No deformity. Normal ROM NEUROLOGICAL: No focal neuro deformity PSYCHOLOGICAL: wnl LABORATORY DATA: Please see below. IMAGING: CT LLE wo contrast shwing small fat containing L inguinal hernia. Venous dupplex LLE shows no DVT XR L hip with pelvis shows no acute fracture US Pelvis: no inguinal hernia seen ACTIVITY: [As tolerated]. DIET: 2 g salt per day DISCHARGE PLAN: follow up with PCP within 7 days, general surgery 7-14 days. DISPOSITION: Home DISCHARGE INSTRUCTIONS: 1. Monitor for pain, signs of infection. ITEMS TO FOLLOWUP ON ON OUTPATIENT: 1. Blood pressure was low overnight post op, held metoprolol 100 mg q12 for 24 hours, and lasix 20 mg for 24 hours. Avoided opiates for pain. Please repeat BP. 2. Fasting glucose 151 on day of DC. Concern for DM2. DISCHARGE CONDITION: [Stable]. TIME SPENT ON DISCHARGE: Less than 30 minutes. Vital Signs/I&Os Vital Signs Date Time Temp Pulse Resp B/P (MAP) Pulse Ox O2 Delivery O2 Flow Rate FiO2 01/23/20 03:30 97.0 86 18 116/67 (83) 97 Room Air 01/22/20 14:15 2.0 I&O- Last 24 Hours up to 6 AM 01/23/20 06:00 Intake Total 1835 ml Output Total 5 ml Balance 1830 ml Laboratory Data Labs 24H Laboratory Tests 2 01/23/20 06:57: Immature Granulocyte % (Auto) 0.5, Neutrophils (%) (Auto) 74.0H, Lymphocytes (%) (Auto) 17.9L, Monocytes (%) (Auto) 7.4H, Eosinophils (%) (Auto) 0.0, Basophils (%) (Auto) 0.2, Neutrophils # (Auto) 6.5, Lymphocytes # (Auto) 1.6, Monocytes # (Auto) 0.7, Eosinophils # (Auto) 0.0, Basophils # (Auto) 0.0, Nucleated Red Blood Cells % (auto) 0.0, Anion Gap 3L, Glomerular Filtration Rate > 60.0, Calcium Level 8.5L, Magnesium Level 2.0 CBC/BMP Laboratory Tests 01/23/20 06:57 Discharge Medications Scheduled Calcium/Vitamin D (Calcium 500-Vit D3 200 Tablet) 1 Each Tablet, 1 TAB PO BID, (Reported) Dabigatran Etexilate Mesylate (Pradaxa) 150 Mg Cap, 150 MG PO BID, (Reported) Digoxin (Digoxin) 125 Mcg Tablet, 125 MCG PO QHS, (Reported) Docusate Sodium (Docusate Sodium) 100 Mg Capsule, 100 MG PO BID Famotidine (Famotidine) 40 Mg Tablet, 40 MG PO QHS, (Reported) Metoprolol Tartrate (Metoprolol Tartrate) 100 Mg Tablet, 100 MG PO BID, (Reported) Sacubitril/Valsartan (Entresto 24 mg-26 mg Tablet) 1 Each Tablet, 1 TAB PO BID, (Reported) Scheduled PRN Acetaminophen (Tylenol Extra Strength) 500 Mg Tablet, 1,000 MG PO Q8HP PRN for PAIN Bisacodyl (Bisacodyl) 5 Mg Tablet.dr, 5 MG PO DAILY PRN for CONSTIPATION Furosemide (Furosemide) 20 Mg Tab, 20 MG PO DAILY PRN for EDEMA, (Reported) Nitroglycerin (Nitroglycerin Patch) 0.4 Mg/Hr Dis, 0.4 MG TD DAILY PRN for CHEST PAIN, (Reported) Allergies Coded Allergies: ciprofloxacin (Verified Allergy, Unknown, 09/11/18) COURTNEY LEYVA MD Jan 23, 2020 08:48
[2020-01-25 20:04] LABS: BLOOD UREA NITROGEN 12 MG/DL (7-18); CARBON DIOXIDE LEVEL 30 MEQ/L (21-32); CHLORIDE LEVEL 108 MEQ/L (98-107); CREATININE FOR GFR 0.86 MG/DL (0.55-1.30); GLOMERULAR FILTRATION RATE > 60.0 (>39); GLUCOSE, FASTING 89 MG/DL (70-100); MAGNESIUM LEVEL 2.2 MG/DL (1.8-2.4); POTASSIUM SERUM 4.3 MEQ/L (3.5-5.1); SODIUM LEVEL 141 MEQ/L (136-145)
[2020-01-25 23:10] LABS: ALBUMIN 3.5 GM/DL (3.2-5.2); ALT/SGPT 31 U/L (12-78); BILIRUBIN,DIRECT 0.2 MG/DL (0.0-0.2); BILIRUBIN,TOTAL 0.5 MG/DL (0.2-1.0); BLOOD UREA NITROGEN 12 MG/DL (7-18); CARBON DIOXIDE LEVEL 28 MEQ/L (21-32); CHLORIDE LEVEL 110 MEQ/L (98-107); CREATININE FOR GFR 0.82 MG/DL (0.55-1.30); GLOMERULAR FILTRATION RATE > 60.0 (>39); GLUCOSE, FASTING 99 MG/DL (70-100); LIPASE 38 U/L (73-393); POTASSIUM SERUM 4.1 MEQ/L (3.5-5.1); SODIUM LEVEL 143 MEQ/L (136-145); TOTAL PROTEIN 6.2 GM/DL (6.4-8.2)
--- NOTE | 2020-02-04 12:44 | CR ---
DATE: 01/21/2020 REASON FOR CONSULTATION: Left inguinal hernia. HISTORY OF PRESENT ILLNESS: Patient is a 74-year-old female who presented to the hospital on January 20 with left hip pain. It was so severe that she was unable to ambulate with it. She was in the emergency room (ER) for almost 12 hours being treated for the hip pain with x-rays. Ultimately ended up getting a CT scan that showed an incarcerated left inguinal hernia. She was admitted to the hospitalist for intractable pain, and I was consulted to evaluate for the hernia. She claimed this has only been going on for a couple of days. She has never had any problems with hernias in the past. She has had recent CT scans the beginning of this year that also did not show a hernia then. This all happened suddenly. She has not had any nausea or vomiting. No problems with urination or bowel movements. No abdominal pains. No prior surgery or radiation to the groin. No recent trauma to the area. MEDICAL HISTORY: 1. Congestive heart failure (CHF). 2. Atrial fibrillation. 3. Dilated cardiomyopathy. 4. Non-Hodgkin's large B-cell lymphoma. 5. History of deep venous thrombosis (DVT). 6. Osteopenia. 7 Renal cancer. SURGICAL HISTORY: 1. Internal defibrillator. 2. Tubal ligation. 3. Nephrostomy tube. 4. Right femoral endarterectomy. 5. Right-sided nephrostomy tube removal. ALLERGIES: CIPRO. MEDICATIONS: Please see medications reconciliation. FAMILY HISTORY: Noncontributory. SOCIAL HISTORY: Denies drug, alcohol, or drug abuse. REVIEW OF SYSTEMS: Pertinent positives and negatives as stated in history of present illness (HPI). PHYSICAL EXAMINATION: GENERAL: Patient is alert and oriented (A and O) times three in no acute distress. VITAL SIGNS: Stable, afebrile. HEENT: Pupils equally round and reactive to light and accommodation. HEART: S1, S2, regular rate and rhythm. LUNGS: Clear to auscultation bilaterally. ABDOMEN: Soft, nontender, non-distended. There is pain to palpation in the left medial groin. No distinct hernia is palpable; however, there is definite pain with palpation in the area. EXTREMITIES: No clubbing, cyanosis, or edema. LABORATORY DATA: Reviewed, within normal limits.. IMAGING: CT abdomen and pelvis does show likely incarcerated inguinal hernia on the left groin, containing fat. ASSESSMENT AND PLAN: Patient is a 74-year-old female with intractable pain in the left groin, likely secondary to an incarcerated indirect inguinal hernia that is containing fat. I explained to her at this point that there is no life- threatening emergency. This does not need to be repaired. Recommendation is to initially treat with anti-inflammatories, rest to the left hip, and we will also hold her Pradaxa. Plan for surgery Monday morning, unless her symptoms resolve spontaneously by them. If her symptoms resolve, then she can consider an outpatient elective surgery if she wishes, or if her pain is still present we will continue and plan for an inpatient procedure. She understood. All of her questions were answered, and I will re-evaluate in the morning to see how she is doing. YSABEL
[2020-03-02 08:17] LABS: BASO % 0.5 % (0.0-1.0); EOS # 0.2 10^3/uL (0.0-0.5); EOS % 2.3 % (0.0-3.0); HEMOGLOBIN 13.4 g/dl (12.0-15.5); LYMPH # 2.2 10^3/uL (1.5-5.0); LYMPH % 33.9 % (24.0-44.0); MEAN CORPUSCULAR HEMOGLOBIN 33.4 pg (27.0-33.0); MEAN CORPUSCULAR HGB CONC 34.4 g/dl (32.0-36.5); MEAN CORPUSCULAR VOLUME 97.3 fl (80.0-96.0); MONO # 0.8 10^3/uL (0.0-0.8); MONO % 11.5 % (0.0-5.0); NEUTROPHILS # 3.4 10^3/uL (1.5-8.5); NEUTROPHILS % 51.3 % (36.0-66.0); PLATELET COUNT, AUTOMATED 141 10^3/uL (150-450); RED BLOOD COUNT 4.01 10^6/uL (4.00-5.40); WHITE BLOOD COUNT 6.5 10^3/uL (4.0-10.0)
[2020-03-02 08:22] LABS: BASO % 0.6 % (0.0-1.0); EOS # 0.1 10^3/uL (0.0-0.5); EOS % 2.2 % (0.0-3.0); HEMATOCRIT 39.4 % (36.0-47.0); HEMOGLOBIN 13.4 g/dl (12.0-15.5); LYMPH # 2.3 10^3/uL (1.5-5.0); LYMPH % 35.8 % (24.0-44.0); MEAN CORPUSCULAR HEMOGLOBIN 33.3 pg (27.0-33.0); MEAN CORPUSCULAR VOLUME 97.8 fl (80.0-96.0); MONO # 0.7 10^3/uL (0.0-0.8); MONO % 11.5 % (0.0-5.0); NEUTROPHILS # 3.2 10^3/uL (1.5-8.5); NEUTROPHILS % 49.6 % (36.0-66.0); PLATELET COUNT, AUTOMATED 136 10^3/uL (150-450); RED BLOOD COUNT 4.03 10^6/uL (4.00-5.40); WHITE BLOOD COUNT 6.4 10^3/uL (4.0-10.0)
--- NOTE | 2020-03-12 08:59 | RO ---
DATE OF OPERATION: 01/22/2020 PREOPERATIVE DIAGNOSIS: Incarcerated left inguinal hernia. POSTOPERATIVE DIAGNOSES: * Incarcerated left inguinal hernia * Left femoral hernia. PROCEDURE: Robotic incarcerated left inguinal and femoral hernia repairs. SURGEON: Mikhail Cody DO COMPRESSION MOLDING MACHINE TENDER: KONG Grant ANESTHESIA: General. ESTIMATED BLOOD LOSS: 5 mL. COMPLICATIONS: None. INDICATIONS FOR PROCEDURE: Patient is a 74-year-old female who presented with severe pain in the left groin. She was in the emergency room being treated for hip pain where a CT scan identified an incarcerated hernia. She was admitted to the hospital for 48 hours due to her Pradaxa. This morning her pain was significantly improved, but she still had pain with ambulation. Therefore, recommendation was to proceed with robotic repair today. The risks and benefits of the procedure not limited to, but including bleeding, infection, hernia formation, hernia recurrence, damage to surrounding structures, need for further surgery were discussed in detail with the patient. Informed consent was obtained and procedure was planned. DESCRIPTION OF PROCEDURE: The patient was brought back to operating room #7. After successful sedation, the abdomen was sterilely prepped and draped. Next, a time-out was done to confirm proper patient and proper procedure. Following that, an 8-mm incision was made in the left lower quadrant and Veress needle was inserted. The abdomen was insufflation to 50 mmHg. The Veress needle was then removed and an 8-mm Optiview port was used to gain access to the abdomen. Once the abdomen was entered, another 8-mm port was placed supraumbilically in the midline and another 8-mm port in the right upper quadrant. Next, the left groin was identified. The robot was docked to the ports from the console. Examination of the left groin revealed an obvious defect right around the round ligament. The preperitoneal space was then opened with curved incision. The preperitoneal space was dissected free medially and laterally. There was a large preperitoneal fat lipoma that was protruding along lateral to the round ligament through the inguinal canal. This was all removed and dissected freely posteriorly and then, the indirect inguinal hernia extending along with the round ligament was scarred right onto the round ligament; so that was completely transected along with the round ligament. Once that was completed, the dissection was carried medially to the pubic symphysis revealing another hernia in the femoral space that was dissected free posteriorly as well. A 3DMax medium light mesh was then placed into the preperitoneal space and it was sutured to the pubic symphysis with a 2- 0 Vicryl suture. The preperitoneal fat was then placed overtop of the mesh. The defect was closed with a running 2-0 V-Loc suture incorporating portions of the fat into the closure to help prevent it from trying to slide back down into the canal. Once that was completed, the ports were removed. The skin incision was closed with 4-0 Vicryl subcuticular sutures. The abdomen was clean and dried, 4 x 4s and tape were applied. MTDD
== END 2020-01-23 10:30 | disposition home or self-care (01) | DRG 351 ==
LOC: M ED 17:30 → M MS5PR 01-21 08:55
PROVIDERS: ADMIT Internal Medicine; ATTEND Family Medicine
PROC: 0YU84JZ Supplement Left Femoral Region with Synthetic Substitute, Percutaneous Endoscopic Approach (ICD-10-PCS; 2020-01-22)
PROC: 8E0W4CZ Robotic Assisted Procedure of Trunk Region, Percutaneous Endoscopic Approach (ICD-10-PCS; 2020-01-22)
PROC: 0YU64JZ Supplement Left Inguinal Region with Synthetic Substitute, Percutaneous Endoscopic Approach (ICD-10-PCS; principal; 2020-01-22 12:30)
DX: K40.30 Unilateral inguinal hernia, with obstruction, without gangrene, not specified as recurrent (principal); C85.90 Non-Hodgkin lymphoma, unspecified, unspecified site; Z79.899 Other long term (current) drug therapy; Z88.8 Allergy status to other drugs, medicaments and biological substances; I50.9 Heart failure, unspecified; I48.91 Unspecified atrial fibrillation; Z86.718 Personal history of other venous thrombosis and embolism; Z85.828 Personal history of other malignant neoplasm of skin; Z88.1 Allergy status to other antibiotic agents; K41.90 Unilateral femoral hernia, without obstruction or gangrene, not specified as recurrent

== ENCOUNTER → 2020-03-24 | Outpatient (REF) | payer OTHER ==
[~2020-03-24] MED LIST changes: +ACET-897 PO; +BISAC5TA PO; +DOCU100C16 PO; +FAMO40TA3 PO; +METO100T5 PO
[2020-03-24 15:57] LABS: APPEARANCE, URINE CLEAR (CLEAR); BACTERIA, URINE AUTO NEGATIVE (NEGATIVE); BILIRUBIN, URINE AUTO NEGATIVE (NEGATIVE); BLOOD, URINE BLOOD 1+ (NEGATIVE); COLOR, URINE STRAW (YELLOW); GLUCOSE, URINE (UA) AUTO NEGATIVE (NEGATIVE); KETONE, URINE AUTO NEGATIVE (NEGATIVE); LEUKOCYTE ESTERASE, URINE AUTO NEGATIVE (NEGATIVE); NITRITE, URINE AUTO NEGATIVE (NEGATIVE); PROTEIN, URINE AUTO NEGATIVE (NEGATIVE); RBC, URINE AUTO 1 /HPF (0-3); SPECIFIC GRAVITY URINE AUTO 1.006 (1.002-1.035); SQUAMOUS EPITHELIAL CELL UR AU 0 /HPF (0-6); UROBILINOGEN, URINE AUTO 0.2 mg/dL (0.0-2.0); WBC, URINE AUTO 1 /HPF (0-3)
[2020-03-24 16:22] LABS: BLOOD UREA NITROGEN 12 MG/DL (7-18); CARBON DIOXIDE LEVEL 30 MEQ/L (21-32); CHLORIDE LEVEL 105 MEQ/L (98-107); CREATININE FOR GFR 0.87 MG/DL (0.55-1.30); GLOMERULAR FILTRATION RATE > 60.0 (>39); GLUCOSE, FASTING 130 MG/DL (70-100); NT-PRO BNP 2044 PG/ML (<450); POTASSIUM SERUM 3.8 MEQ/L (3.5-5.1); SODIUM LEVEL 143 MEQ/L (136-145)
== END ==
LOC: M SFHCPLAZ 11:42
PROVIDERS: ATTEND Family Medicine
DX: I50.22 Chronic systolic (congestive) heart failure (principal); R60.9 Edema, unspecified

== ENCOUNTER → 2020-04-03 | Outpatient (REF) | payer OTHER ==
[2020-04-03 18:02] LABS: BLOOD UREA NITROGEN 14 MG/DL (7-18); CALCIUM LEVEL 9.3 MG/DL (8.8-10.2); CARBON DIOXIDE LEVEL 34 MEQ/L (21-32); CHLORIDE LEVEL 102 MEQ/L (98-107); CREATININE FOR GFR 0.86 MG/DL (0.55-1.30); GLOMERULAR FILTRATION RATE > 60.0 (>39); GLUCOSE, FASTING 114 MG/DL (70-100); MAGNESIUM LEVEL 2.1 MG/DL (1.8-2.4); SODIUM LEVEL 140 MEQ/L (136-145)
== END ==
LOC: M PLALAB 15:45
PROVIDERS: ATTEND Family Medicine
DX: I50.22 Chronic systolic (congestive) heart failure (principal)

== ENCOUNTER → 2020-05-04 | Outpatient (CLI) | payer OTHER ==
[2020-05-04 18:11] LABS: BASO % 0.6 % (0.0-1.0); EOS # 0.1 10^3/uL (0.0-0.5); HEMATOCRIT 42.8 % (36.0-47.0); LYMPH # 2.1 10^3/uL (1.5-5.0); LYMPH % 31.7 % (24.0-44.0); MEAN CORPUSCULAR HEMOGLOBIN 32.3 pg (27.0-33.0); MEAN CORPUSCULAR HGB CONC 32.7 g/dl (32.0-36.5); MEAN CORPUSCULAR VOLUME 98.8 fl (80.0-96.0); MONO # 0.8 10^3/uL (0.0-0.8); MONO % 12.3 % (0.0-5.0); NEUTROPHILS # 3.5 10^3/uL (1.5-8.5); NEUTROPHILS % 53.2 % (36.0-66.0); PLATELET COUNT, AUTOMATED 153 10^3/uL (150-450); RED BLOOD COUNT 4.33 10^6/uL (4.00-5.40); WHITE BLOOD COUNT 6.7 10^3/uL (4.0-10.0)
[2020-05-04 18:42] LABS: ALBUMIN 3.6 GM/DL (3.2-5.2); ALT/SGPT 25 U/L (12-78); BILIRUBIN,TOTAL 0.3 MG/DL (0.2-1.0); BLOOD UREA NITROGEN 14 MG/DL (7-18); CALCIUM LEVEL 9.1 MG/DL (8.8-10.2); CARBON DIOXIDE LEVEL 30 MEQ/L (21-32); CHLORIDE LEVEL 103 MEQ/L (98-107); CREATININE FOR GFR 0.92 MG/DL (0.55-1.30); GLOMERULAR FILTRATION RATE > 60.0 (>39); GLUCOSE, FASTING 143 MG/DL (70-100); LDH LACTATE DEHYDROGENASE 215 U/L (84-246); POTASSIUM SERUM 3.9 MEQ/L (3.5-5.1); SODIUM LEVEL 139 MEQ/L (136-145); TOTAL PROTEIN 6.4 GM/DL (6.4-8.2)
== END ==
LOC: M PLALAB 15:12
PROVIDERS: ATTEND Internal Medicine Hematology & Oncology
DX: C82.13 Follicular lymphoma grade II, intra-abdominal lymph nodes (principal); C83.38 Diffuse large B-cell lymphoma, lymph nodes of multiple sites

== ENCOUNTER → 2020-05-05 | Outpatient (CLI) | payer OTHER ==
[~2020-05-05] MED LIST changes: +GASTROGRAFIN SOLUTION 30ML (Q9963) As Ordered ONE; +ISOVUE-370 76% 100ML VIAL As Ordered ONE
--- NOTE | 2020-05-08 04:24 | REP ---
INDICATION: FOLLICULAR LYMPHOMA GRADE II, INTRA-ABDOMINAL LYMP COMPARISON: 11/06/2019, 04/03/2019 TECHNIQUE: Axial contrast enhanced images from the thoracic inlet to the upper abdomen with coronal and sagittal reformations using 100 ml Isovue 370 intravenous contrast material followed by CT of the abdomen and pelvis. This CT examination was performed using the following dose reduction techniques: Automated exposure control, adjustment of mA and/or kv according to the patient's size, and use of iterative reconstruction technique. FINDINGS: The lung santana demonstrate chronic age-related scattered interstitial changes along with minimal basilar scarring. No consolidation, suspicious nodule, or mass lesion is appreciated. No pleural effusion. No pneumothorax. Tracheobronchial tree is patent. No significant axillary, hilar, or mediastinal adenopathy noted. Further evaluation of the mediastinum demonstrates atherosclerotic changes to the thoracic aorta and coronary arteries. No evidence for aortic aneurysm or dissection. Cardiomegaly noted without pericardial effusion. [id number]-[id number] extends into the superior vena cava. Pacemaker noted. The thyroid gland is enlarged and heterogeneous and includes a predominantly large left thyroid lobe with multiple nodules essentially unchanged from prior examination. Surrounding musculoskeletal structures are intact and without acute osseous abnormality. Limited upper abdomen demonstrates normal bilateral adrenal glands, cholelithiasis, and stable renal hypodensities. IMPRESSION: 1. Chronic appearing interstitial changes without acute mediastinal or pleuroparenchymal process. 2. No adenopathy. 3. Enlarged heterogeneous nodular thyroid gland with predominantly large left thyroid lobe unchanged. 4. Upper abdominal findings include cholelithiasis and stable bilateral renal hypodensities. <Electronically signed by Hammad Steel > 05/08/20 [id number]
--- NOTE | 2020-05-08 04:34 | REP ---
INDICATION: FOLLICULAR LYMPHOMA GRADE II, INTRA-ABDOMINAL LYMP. COMPARISON: 11/06/2019, 04/03/2019 TECHNIQUE: Axial contrast-enhanced images from the lung bases to the pubic symphysis using 100 cc Isovue 370 intravenous contrast material. Delayed images of the abdomen along with coronal and sagittal reformations obtained.. This CT examination was performed using the following dose reduction techniques: Automated exposure control, adjustment of mA and/or kv according to the patient's size, and the use of iterative reconstruction technique. FINDINGS: Liver demonstrates fatty infiltration without focal hepatic lesion. Cholelithiasis noted. Spleen, pancreas, and bilateral adrenal glands are normal. Kidneys demonstrate stable cysts measuring up to 1.9 cm in the right kidney and 1.7 cm in the left kidney without perinephric stranding or obvious nephroureterolithiasis. The enteric system including stomach, small, and large bowel appears normal. No evidence for obstruction or acute inflammatory process. Normal terminal ileum and appendix are identified in the right lower quadrant. Pelvis demonstrates normal bladder and age-appropriate uterus/adnexa. No ascites. No free air. No intraperitoneal or retroperitoneal adenopathy. Abdominal aorta and vasculature demonstrate atherosclerotic changes without aneurysm or dissection. Musculoskeletal structures are intact and without acute osseous abnormality. IMPRESSION: 1. Hepatosteatosis without focal hepatic lesion. 2. Cholelithiasis. 3. Stable renal hypodensities consistent with cysts. 4. No acute abdominopelvic pathology appreciated. Specifically, no ascites, adenopathy, mass lesion or focal inflammatory stranding. <Electronically signed by Hammad Steel > 05/08/20 [id number]
== END ==
LOC: M RAD 11:07
PROVIDERS: ATTEND Internal Medicine Hematology & Oncology
DX: E04.9 Nontoxic goiter, unspecified (principal); C82.13 Follicular lymphoma grade II, intra-abdominal lymph nodes; K80.20 Calculus of gallbladder without cholecystitis without obstruction; K76.0 Fatty (change of) liver, not elsewhere classified
CPT/HCPCS: 71260; 74177; Q9963; Q9967

== ENCOUNTER → 2020-05-09 | Outpatient (CLI) | payer OTHER ==
[~2020-05-09] MED LIST changes: -GASTROGRAFIN SOLUTION 30ML (Q9963) As Ordered ONE; -ISOVUE-370 76% 100ML VIAL As Ordered ONE
== END ==
LOC: M LABSMTC 09:51
PROVIDERS: ATTEND Internal Medicine
DX: Z01.812 Encounter for preprocedural laboratory examination (principal); Z20.828 Contact with and (suspected) exposure to other viral communicable diseases

== ENCOUNTER → 2020-05-12 | Outpatient (REF) | payer OTHER ==
[2020-05-12 15:57] LABS: BASO % 0.5 % (0.0-1.0); EOS # 0.1 10^3/uL (0.0-0.5); EOS % 1.3 % (0.0-3.0); HEMATOCRIT 42.3 % (36.0-47.0); HEMOGLOBIN 13.9 g/dl (12.0-15.5); LYMPH # 2.7 10^3/uL (1.5-5.0); MEAN CORPUSCULAR HEMOGLOBIN 32.2 pg (27.0-33.0); MEAN CORPUSCULAR HGB CONC 32.9 g/dl (32.0-36.5); MEAN CORPUSCULAR VOLUME 97.9 fl (80.0-96.0); MONO # 0.9 10^3/uL (0.0-0.8); NEUTROPHILS # 4.2 10^3/uL (1.5-8.5); NEUTROPHILS % 52.8 % (36.0-66.0); PLATELET COUNT, AUTOMATED 159 10^3/uL (150-450); RED BLOOD COUNT 4.32 10^6/uL (4.00-5.40); WHITE BLOOD COUNT 7.9 10^3/uL (4.0-10.0)
[2020-05-12 16:10] LABS: INR 2.77; PROTHROMBIN TIME 29.9 SECONDS (12.5-14.3)
[2020-05-12 16:11] LABS: PARTIAL THROMBOPLASTIN TIME 63.2 SECONDS (24.2-38.5)
[2020-05-12 16:41] LABS: BLOOD UREA NITROGEN 13 MG/DL (7-18); CARBON DIOXIDE LEVEL 30 mmol/L (20-29); CHLORIDE LEVEL 104 MEQ/L (98-107); CREATININE FOR GFR 0.88 MG/DL (0.55-1.30); GLOMERULAR FILTRATION RATE > 60.0 (>39); GLUCOSE, FASTING 103 MG/DL (70-100); POTASSIUM SERUM 3.9 MEQ/L (3.5-5.1); SODIUM LEVEL 140 MEQ/L (136-145)
[2020-05-12 16:42] LABS: ALBUMIN 3.9 GM/DL (3.2-5.2); ALT/SGPT 31 IU/L (0-32); BILIRUBIN,TOTAL 0.4 MG/DL (0.2-1.0); CALCIUM LEVEL 9.9 MG/DL (8.8-10.2); NT-PRO BNP 1756 PG/ML (<450)
== END ==
LOC: M SFHCPLAZ 13:21
PROVIDERS: ATTEND Family Medicine
DX: I48.20 Chronic atrial fibrillation, unspecified (principal); I50.22 Chronic systolic (congestive) heart failure

== ENCOUNTER → 2020-08-06 | Outpatient (CLI) | payer OTHER ==
[2020-08-06 14:22] LABS: BLOOD UREA NITROGEN 14 MG/DL (7-18); CREATININE FOR GFR 0.92 MG/DL (0.55-1.30); GLOMERULAR FILTRATION RATE > 60.0 (>39)
== END ==
LOC: M PLALAB 09:33
PROVIDERS: ATTEND Internal Medicine Hematology & Oncology
DX: C82.13 Follicular lymphoma grade II, intra-abdominal lymph nodes (principal)

== ENCOUNTER 2020-09-15 16:11 | Emergency (ER) | payer OTHER ==
[~2020-09-15] VITALS: Ht 165.1 cm; Wt 66.7 kg
[2020-09-15] MEDS ORDERED: MIRA3350 PO (16:31)
--- NOTE | 2020-09-15 17:13 | REP ---
INDICATION: RIGHT CALF PAIN COMPARISON: None. TECHNIQUE: Real time compression and duplex Doppler interrogation of the right lower extremity deep venous system is performed. FINDINGS: The right common femoral, superficial femoral and popliteal veins are fully compressible with transducer pressure and demonstrate normal spontaneous and phasic flow, without evidence of deep venous thrombosis. IMPRESSION: No evidence of deep venous thrombosis of the right lower extremity femoral popliteal venous system. <Electronically signed by Mikhail Denise > 09/15/20 [id number]
[2020-09-15 17:53] VITALS: BP 101/59
== END 2020-09-15 18:08 | disposition home or self-care (01) ==
LOC: M ED 16:11
DX: M79.604 Pain in right leg (principal); I48.91 Unspecified atrial fibrillation; I50.9 Heart failure, unspecified; Z86.718 Personal history of other venous thrombosis and embolism; Z87.891 Personal history of nicotine dependence; Z88.1 Allergy status to other antibiotic agents

== ENCOUNTER → 2020-11-18 | Outpatient (CLI) | payer OTHER ==
[~2020-11-18] MED LIST changes: +MIRA3350 PO
[2020-11-18 15:46] LABS: BASO % 0.5 % (0.0-1.0); EOS # 0.1 10^3/uL (0.0-0.5); EOS % 1.3 % (0.0-3.0); HEMATOCRIT 38.2 % (36.0-47.0); HEMOGLOBIN 12.4 g/dl (12.0-15.5); LYMPH # 2.1 10^3/uL (1.5-5.0); LYMPH % 37.7 % (24.0-44.0); MEAN CORPUSCULAR HEMOGLOBIN 32.6 pg (27.0-33.0); MEAN CORPUSCULAR HGB CONC 32.5 g/dl (32.0-36.5); MEAN CORPUSCULAR VOLUME 100.5 fl (80.0-96.0); MONO # 0.6 10^3/uL (0.0-0.8); MONO % 11.4 % (2.0-8.0); NEUTROPHILS # 2.7 10^3/uL (1.5-8.5); NEUTROPHILS % 48.9 % (36.0-66.0); PLATELET COUNT, AUTOMATED 154 10^3/uL (150-450); WHITE BLOOD COUNT 5.6 10^3/uL (4.0-10.0)
[2020-11-18 16:37] LABS: ALBUMIN 3.4 GM/DL (3.2-5.2); ALT/SGPT 30 U/L (12-78); BILIRUBIN,TOTAL 0.4 MG/DL (0.2-1.0); BLOOD UREA NITROGEN 14 MG/DL (7-18); CALCIUM LEVEL 8.6 MG/DL (8.8-10.2); CARBON DIOXIDE LEVEL 29 MEQ/L (21-32); CHLORIDE LEVEL 104 MEQ/L (98-107); CREATININE FOR GFR 0.93 MG/DL (0.55-1.30); GLOMERULAR FILTRATION RATE > 60.0 (>39); GLUCOSE, FASTING 152 MG/DL (70-100); LDH LACTATE DEHYDROGENASE 227 U/L (84-246); POTASSIUM SERUM 3.8 MEQ/L (3.5-5.1); SODIUM LEVEL 140 MEQ/L (136-145); TOTAL PROTEIN 6.5 GM/DL (6.4-8.2)
== END ==
LOC: M PLALAB 14:13
PROVIDERS: ATTEND Internal Medicine Hematology & Oncology
DX: C82.98 Follicular lymphoma, unspecified, lymph nodes of multiple sites (principal)

== ENCOUNTER → 2020-12-03 | Outpatient (CLI) | payer OTHER ==
[2020-12-03 16:07] LABS: BLOOD UREA NITROGEN 17 MG/DL (7-18); CARBON DIOXIDE LEVEL 28 MEQ/L (21-32); CHLORIDE LEVEL 106 MEQ/L (98-107); CREATININE FOR GFR 0.91 MG/DL (0.55-1.30); GLOMERULAR FILTRATION RATE > 60.0 (>39); GLUCOSE, FASTING 103 MG/DL (70-100); POTASSIUM SERUM 4.7 MEQ/L (3.5-5.1); SODIUM LEVEL 141 MEQ/L (136-145)
[2020-12-03 16:08] LABS: CALCIUM LEVEL 9.2 MG/DL (8.8-10.2); CHOLESTEROL LEVEL 177 MG/DL (<200); DIGOXIN LEVEL 1.1 NG/ML (0.5-2.0); HDL CHOLESTEROL 59 MG/DL (>40); LDL CHOLESTEROL 92 MG/DL (<100); NON-HDL-C 118 MG/DL; TRIGLYCERIDES LEVEL 131 MG/DL (<150)
== END ==
LOC: M PLALAB 11:59
PROVIDERS: ATTEND Family Medicine
DX: I50.22 Chronic systolic (congestive) heart failure (principal)

== ENCOUNTER → 2020-12-29 | Outpatient (CLI) | payer OTHER ==
--- NOTE | 2020-12-29 12:16 | REP ---
INDICATION: THYROID NODULE/LYMPHADENOPATHY OF HEAD AND NECK. COMPARISON: Comparison is made with CT imaging from May 05, 2020.. TECHNIQUE: High-resolution bilateral thyroid sonography. FINDINGS: Thyroid isthmus isr 0.4 cm in thickness. Right thyroid lobe dimensions are 5.8 x 1.7 x 2.3 cm. Left lobe measures 5.9 x 1.9 x 2.2 cm. Multiple thyroid nodules are noted bilaterally. The 3 largest right-sided thyroid nodules include a 1.2 x 1.1 x 1.0 cm solid nodule in the right apex, a complex 0.8 cm nodule in the midgland, and a complex is 0.5 cm nodule in the lower pole. In the left lobe there is a complex nodule 0.8 cm in greatest diameter in the upper pole. There is a solid larger nodule in the lower pole measuring 2.9 x 2.4 x 1.7 cm. There is a cyst in the lower pole measuring 1.5 cm in greatest diameter. There is a complex isthmic nodule measuring 0.8 cm. The larger lower pole nodule on the left is visible on CT. In the right neck adjacent to the thyroid there is a 1.2 x 0.5 x 0.6 cm cervical lymph node which has a normal appearance. In the left neck there is a hypoechoic node measuring 2.3 x 0.5 x 0.8 cm. This does not have preserved hilar architecture and could be a suspicious lymph node. IMPRESSION: Multinodular thyroid. The largest nodule is in the lower pole on the left measuring 2.9 cm in greatest diameter. No one nodule appears more suspicious than any other by ultrasound criteria. There is 1 normal appearing neck lymph node in the right side of the neck. There is a somewhat suspicious lymph node in the left neck by ultrasound criteria. Consideration could be given to ultrasound-guided FNA of this in the lymph node as well as the largest left lobe nodule. <Electronically signed by Yaron Love > 12/29/20 [id number]
== END ==
LOC: M WHC 09:56
PROVIDERS: ATTEND Family Medicine
DX: E04.2 Nontoxic multinodular goiter (principal); R59.1 Generalized enlarged lymph nodes

== ENCOUNTER → 2021-01-08 | Outpatient (CLI) | payer OTHER ==
[~2021-01-08] MED LIST changes: +ACET-683 PO; +CALCCAP4 PO; +LOSA50TA28; +LOSA50TA28 PO; -LOSA50TA88; -LOSA50TA88 PO; +NYST10OI TOP; +OMEP-173 PO; -OMEP-218 PO
[2021-01-08 16:26] LABS: FREE T4 1.29 NG/DL (0.76-1.46); THYROID STIMULATING HORMONE 0.658 uIU/ML (0.358-3.740)
== END ==
LOC: M PLALAB 14:21
PROVIDERS: ATTEND Nurse Practitioner Family
DX: E04.2 Nontoxic multinodular goiter (principal)

== ENCOUNTER → 2021-01-18 | Outpatient (REF) | payer OTHER ==
[~2021-01-18] MED LIST changes: -ACET-683 PO; -CALCCAP4 PO; -LOSA50TA28; -LOSA50TA28 PO; +LOSA50TA88; +LOSA50TA88 PO; -NYST10OI TOP; -OMEP-173 PO; +OMEP-218 PO
== END ==
LOC: M LAB REF 19:08
PROVIDERS: ATTEND Internal Medicine Endocrinology, Diabetes & Metabolism
DX: E04.2 Nontoxic multinodular goiter (principal)

== ENCOUNTER → 2021-03-04 | Outpatient (REF) | payer OTHER | LOC: M LAB REF 17:47 | PROVIDERS: ATTEND Internal Medicine Endocrinology, Diabetes & Metabolism | DX: E04.2 Nontoxic multinodular goiter (principal) ==

== ENCOUNTER → 2021-03-04 | Outpatient (CLI) | payer OTHER ==
--- NOTE | 2021-03-04 12:03 | REPMRS ---
Patient History The patient states she has not had a clinical breast exam in over a year. Family history of colorectal cancer at age 68 in mother. 10 lb unintentional weight gain. Patient states no breast complaints today. Patient has signed MRS History Sheet. Digital Woman Screen Mammo: March 04, 2021 - Exam #: [id number] Bilateral CC and MLO view(s) were taken. Technologist: RT Jaguar Prior study comparison: January 02, 2020, bilateral digital woman screen mammo performed at [facility]. June 06, 2017, digital woman screen mammo performed at [facility]. FINDINGS: There are scattered fibroglandular densities. Screening. Digital screening (2D) mammography was performed bilaterally in the CC and MLO projections. Additionally, breast tomosynthesis (3D mammography) was performed bilaterally in the CC and MLO projections. Todays exam was compared to the prior exam/exams. By history, the patient has no complaints of a palpable breast abnormality or other significant breast complaints. The breasts are unchanged in size and shape. There are no bhumika-soft tissue densities or spiculated masses. There is no internal architectural distortion. There are no suspicious bhumika-calcific clusters. Skin thickening or nipple retraction is not present. IMPRESSION: BI-RADS Category 2- Benign Findings. There is no evidence of malignant alteration of the breasts. Followup examination recommended in one year. The Volpara volumetric breast density category is B, there are scattered areas of fibroglandular densities. This mammogram was read with the assistance of [employer],an FDA approved computer aided detection system for mammography. The lifetime Tyrer-Cuzick score is 2.5 % Negative x-ray reports should not delay surgical consultation if a dominant or clinically suspicious mass is present. Not all breast cancers can be identified by mammography. Therefore, we recommend that you continue to perform regular breast self-examination and physical examination and then promptly contact your physician of any concerns or changes. Adenosis and dense breasts may obscure an underlying neoplasm. Assessment: BI-RADS/ACR category 2 mammogram. Benign Findings. Recommendation Routine screening mammogram of both breasts in 1 year. Electronically Signed By: Fantasma Galeana DO 03/04/21 0343
== END ==
LOC: M WHC 11:20
PROVIDERS: ATTEND Family Medicine
DX: Z12.31 Encounter for screening mammogram for malignant neoplasm of breast (principal)

== ENCOUNTER → 2021-03-15 | Outpatient (CLI) | payer OTHER | LOC: M PLALAB 13:13 | PROVIDERS: ATTEND Nurse Practitioner Family | DX: C82.13 Follicular lymphoma grade II, intra-abdominal lymph nodes (principal) ==

== ENCOUNTER 2021-04-30 16:45 | Observation (INO) | payer OTHER ==
[~2021-04-30] VITALS: Ht 165.1 cm; Wt 65.5 kg
[~2021-04-30 16:45] MED LIST changes: +LOSA50TA28; +LOSA50TA28 PO; -LOSA50TA88; -LOSA50TA88 PO; +OMEP-173 PO; -OMEP-218 PO
[2021-04-30 18:06] LABS: BASO % 0.4 % (0.0-1.0); EOS # 0.1 10^3/uL (0.0-0.5); EOS % 1.8 % (0.0-3.0); HEMOGLOBIN 12.9 g/dl (12.0-15.5); LYMPH # 2.3 10^3/uL (1.5-5.0); LYMPH % 45.5 % (24.0-44.0); MEAN CORPUSCULAR HEMOGLOBIN 33.3 pg (27.0-33.0); MEAN CORPUSCULAR HGB CONC 33.1 g/dl (32.0-36.5); MEAN CORPUSCULAR VOLUME 100.8 fl (80.0-96.0); MONO # 0.7 10^3/uL (0.0-0.8); MONO % 13.1 % (2.0-8.0); PLATELET COUNT, AUTOMATED 147 10^3/uL (150-450); RED BLOOD COUNT 3.87 10^6/uL (4.00-5.40); WHITE BLOOD COUNT 5.1 10^3/uL (4.0-10.0)
[2021-04-30] MEDS ORDERED: NS 1,000 ML IV ONE (18:20)
[2021-04-30 18:31] LABS: RSV AMPLIFICATION NEGATIVE (NEGATIVE)
[2021-04-30] MEDS ORDERED: DIGOXIN 0.125 MG TAB PO SCH (21:00)
[2021-04-30] MEDS ORDERED: METOPROLOL SUCC (TopROL XL) 100MG *XL* TAB PO SCH (21:00)
[2021-04-30] MEDS: DABIGATRAN ETEXILATE 75 MG CAP (PRADAXA) PO SCH (21:00)
[2021-04-30] MEDS: ENTRESTO 24-26MG TABLET (SACUBITRIL/VALSARTAN) PO SCH (21:00)
[2021-04-30] MEDS ORDERED: FAMOTIDINE 20 MG TAB PO SCH (21:00)
[2021-04-30 21:02] LABS: CK-MB VALUE MASS < 1.0 NG/ML (<3.6); CPK CREATINE PHOSPHOKINASE 44 U/L (26-192); MB/CK RELATIVE INDEX 2.27 (< OR =4)
[2021-04-30 21:15] LABS: C REACTIVE PROTEIN QUANTITATIV 0.72 MG/DL (0.00-0.30); MAGNESIUM LEVEL 1.4 MG/DL (1.8-2.4)
[2021-04-30] MEDS ORDERED: MAGNESIUM SULFATE IN WATER 2 GM in IV 1 EA IV STA ×2 (22:29)
[2021-04-30] MEDS ORDERED: ISOVUE-370 76% 100ML VIAL As Ordered ONE (22:38)
[2021-04-30] MEDS ORDERED: POTASSIUM CHLORIDE 10% LIQ 20 MEQ/15 ML UDC PO ONE (23:55)
[2021-04-30] MEDS ORDERED: KCL 10MEQ/100ML SWI (KRUN) 10 MEQ in IV 1 EA IV ONE ×4 (23:55)
[2021-05-01] MEDS ORDERED: METO1TAB33 PO (00:09)
[2021-05-01] MEDS ORDERED: ACET-683 PO (00:09)
[2021-05-01] MEDS ORDERED: HOME MED LIST COMPLETE! XX SCH (00:10)
[2021-05-01] MEDS ORDERED: ACETAMINOPHEN TAB 650MG DOSE (2X325MG) PO PRN (00:45)
[2021-05-01] MEDS ORDERED: MOM 30ML SUSPENSION UDC PO PRN (00:45)
[2021-05-01] MEDS ORDERED: MAALOX 30 ML SUSP *UDC PO PRN (00:45)
[2021-05-01] MEDS ORDERED: NITROGLYCERIN 0.4 MG/HR PATCH TD PRN (00:45)
[2021-05-01] MEDS ORDERED: NS 1,000 ML IV ONE (00:45)
[2021-05-01 01:21] LABS: BLOOD UREA NITROGEN 17 MG/DL (7-18); CALCIUM LEVEL 7.7 MG/DL (8.8-10.2); CARBON DIOXIDE LEVEL 25 MEQ/L (21-32); CHLORIDE LEVEL 108 MEQ/L (98-107); CREATININE FOR GFR 0.87 MG/DL (0.55-1.30); GLOMERULAR FILTRATION RATE > 60.0 (>39); GLUCOSE, FASTING 77 MG/DL (70-100); MAGNESIUM LEVEL 1.6 MG/DL (1.8-2.4); POTASSIUM SERUM 3.6 MEQ/L (3.5-5.1); SODIUM LEVEL 141 MEQ/L (136-145)
[2021-05-01 02:01] VITALS: BP 120/60
[2021-05-01 04:38] VITALS: BP 120/60
[2021-05-01 06:00] VITALS: BP_SYST 109; BP_SYST 111; BP_SYST 97; BP_DIAS 53; BP_DIAS 60; BP_DIAS 62
[2021-05-01 08:40] LABS: HEMATOCRIT 38.3 % (36.0-47.0); HEMOGLOBIN 12.5 g/dl (12.0-15.5); MEAN CORPUSCULAR HEMOGLOBIN 32.9 pg (27.0-33.0); MEAN CORPUSCULAR HGB CONC 32.6 g/dl (32.0-36.5); MEAN CORPUSCULAR VOLUME 100.8 fl (80.0-96.0); PLATELET COUNT, AUTOMATED 135 10^3/uL (150-450); WHITE BLOOD COUNT 5.1 10^3/uL (4.0-10.0)
[2021-05-01] MEDS ORDERED: DOCUSATE SODIUM 100MG CAPSULE PO SCH (09:00)
[2021-05-01 09:02] LABS: BLOOD UREA NITROGEN 12 MG/DL (7-18); CALCIUM LEVEL 7.9 MG/DL (8.8-10.2); CARBON DIOXIDE LEVEL 25 MEQ/L (21-32); CHLORIDE LEVEL 111 MEQ/L (98-107); CREATININE FOR GFR 0.77 MG/DL (0.55-1.30); GLOMERULAR FILTRATION RATE > 60.0 (>39); GLUCOSE, FASTING 103 MG/DL (70-100); MAGNESIUM LEVEL 2.3 MG/DL (1.8-2.4); POTASSIUM SERUM 3.9 MEQ/L (3.5-5.1); SODIUM LEVEL 140 MEQ/L (136-145)
[2021-05-01] MEDS: ENTRESTO 24-26MG TABLET (SACUBITRIL/VALSARTAN) PO SCH (09:35)
[2021-05-01] MEDS: DABIGATRAN ETEXILATE 75 MG CAP (PRADAXA) PO SCH (09:35)
[2021-05-01] MEDS ORDERED: diphenhydrAMINE 50MG/ML VIAL (J1200) IV PRN (11:10)
[2021-05-01] MEDS ORDERED: EPINEPHrine INJ 1 MG/ML 1ML AMP IM PRN (11:10)
[2021-05-01] MEDS ORDERED: CASIRIVIMAB/IMDEVIMAB 1,200 MG in NS 250 ML IV ONE (11:10)
[2021-05-01] MEDS ORDERED: ALBUTEROL 90 MCG/ACT 8GM HFA INHALER INH PRN (11:10)
[2021-05-01] MEDS ORDERED: ALBUTEROL SULFATE 2.5 MG/0.5 ML INH NEB SOLN INH PRN (11:10)
[2021-05-01] MEDS ORDERED: NS 1,000 ML IV SCH (11:10)
[2021-05-01] MEDS ORDERED: methylPREDNISolone 125MG 2ML VIAL IV PRN (11:10)
[2021-05-01] MEDS ORDERED: **NOTE PATIENT COMMENT** MISC XX SCH (21:00)
[2021-06-14] MEDS ORDERED: CALCCAP4 PO (11:02)
[2021-06-14] MEDS ORDERED: NYST10OI TOP (11:02)
[2021-06-14] MEDS ORDERED: FURO40TA2 PO (11:02)
== END 2021-05-01 12:23 | disposition home or self-care (01) ==
LOC: M ED 16:45 → M ED INP 16:46 → M 4MAIN 05-01 02:01
PROVIDERS: ADMIT Internal Medicine; ATTEND Internal Medicine
DX: I95.1 Orthostatic hypotension (principal); U07.1 COVID-19; R05.9 Cough, unspecified; R53.1 Weakness; R42 Dizziness and giddiness; Z95.0 Presence of cardiac pacemaker; I48.91 Unspecified atrial fibrillation; K21.9 Gastro-esophageal reflux disease without esophagitis; I73.9 Peripheral vascular disease, unspecified; Z79.899 Other long term (current) drug therapy; Z88.1 Allergy status to other antibiotic agents; I50.9 Heart failure, unspecified; Z85.71 Personal history of Hodgkin lymphoma
CPT/HCPCS: 36415; 71045; 71275; 80047; 80048; 80162; 81001; 82550; 82553; 83615; 83735; 84145; 84484; 85025; 85027; 85379; 86140; 87086; 87631; 93005; 96361; 96374; 96375; 99285; J3475; J3480; Q9967

== ENCOUNTER 2021-05-01 12:49 | Outpatient (CLI) | payer OTHER ==
[~2021-05-01 12:49] MED LIST changes: +ACET-683 PO; +ALBUTEROL 90 MCG/ACT 8GM HFA INHALER INH PRN; +ALBUTEROL SULFATE 2.5 MG/0.5 ML INH NEB SOLN INH PRN; +CASIRIVIMAB (REGN10933) 600 MG, IMDEVIMAB (REGN10987) 600 MG in NS 250 ML IV ONE; +CASIRIVIMAB/IMDEVIMAB 1,200 MG in NS 250 ML IV ONE; +EPINEPHrine INJ 1 MG/ML 1ML AMP IM PRN; +NS 1,000 ML IV SCH; +diphenhydrAMINE 50MG/ML VIAL (J1200) IV PRN; +methylPREDNISolone 125MG 2ML VIAL IV PRN
[2021-05-01 12:50] VITALS: BP 108/56
[2021-05-01 13:20] VITALS: BP 103/55
[2021-05-01 13:50] VITALS: BP 103/59
[2021-05-01 14:00] VITALS: BP 103/58
[2021-05-01 15:00] VITALS: BP 100/55
[2021-06-14] MEDS ORDERED: FURO40TA2 PO (11:02)
[2021-06-14] MEDS ORDERED: CALCCAP4 PO (11:02)
[2021-06-14] MEDS ORDERED: NYST10OI TOP (11:02)
== END 2021-05-01 15:50 | disposition home or self-care (01) ==
LOC: M 4MAIN 12:49 → M OPCLI4 12:49
PROVIDERS: ATTEND Student in an Organized Health Care Education/Training Program
DX: U07.1 COVID-19 (principal); Z88.1 Allergy status to other antibiotic agents

== ENCOUNTER → 2021-06-01 | Outpatient (REF) | payer OTHER ==
[~2021-06-01] MED LIST changes: -ALBUTEROL 90 MCG/ACT 8GM HFA INHALER INH PRN; -ALBUTEROL SULFATE 2.5 MG/0.5 ML INH NEB SOLN INH PRN; -CASIRIVIMAB (REGN10933) 600 MG, IMDEVIMAB (REGN10987) 600 MG in NS 250 ML IV ONE; -CASIRIVIMAB/IMDEVIMAB 1,200 MG in NS 250 ML IV ONE; -EPINEPHrine INJ 1 MG/ML 1ML AMP IM PRN; -LOSA50TA28; -LOSA50TA28 PO; +LOSA50TA88; +LOSA50TA88 PO; -NS 1,000 ML IV SCH; -OMEP-173 PO; +OMEP-218 PO; -diphenhydrAMINE 50MG/ML VIAL (J1200) IV PRN; -methylPREDNISolone 125MG 2ML VIAL IV PRN
== END ==
LOC: M SFHCPLAZ 13:03
PROVIDERS: ATTEND Physician Assistant
DX: R30.0 Dysuria (principal)

== ENCOUNTER → 2021-06-14 | Outpatient (CLI) | payer OTHER ==
[~2021-06-14] MED LIST changes: +CALCCAP4 PO; +LOSA50TA28; +LOSA50TA28 PO; -LOSA50TA88; -LOSA50TA88 PO; +NYST10OI TOP; +OMEP-173 PO; -OMEP-218 PO
[2021-06-14 14:18] LABS: BASO # 0.1 10^3/uL (0.0-0.2); BASO % 0.8 % (0.0-1.0); EOS # 0.1 10^3/uL (0.0-0.5); EOS % 1.8 % (0.0-3.0); HEMATOCRIT 40.1 % (36.0-47.0); HEMOGLOBIN 13.5 g/dl (12.0-15.5); LYMPH % 32.4 % (24.0-44.0); MEAN CORPUSCULAR HEMOGLOBIN 33.2 pg (27.0-33.0); MEAN CORPUSCULAR HGB CONC 33.7 g/dl (32.0-36.5); MEAN CORPUSCULAR VOLUME 98.5 fl (80.0-96.0); MONO # 0.8 10^3/uL (0.0-0.8); MONO % 12.5 % (2.0-8.0); NEUTROPHILS # 3.2 10^3/uL (1.5-8.5); NEUTROPHILS % 52.3 % (36.0-66.0); PLATELET COUNT, AUTOMATED 157 10^3/uL (150-450); RED BLOOD COUNT 4.07 10^6/uL (4.00-5.40); WHITE BLOOD COUNT 6.1 10^3/uL (4.0-10.0)
[2021-06-14 15:05] LABS: ALBUMIN 3.6 GM/DL (3.2-5.2); ALT/SGPT 31 U/L (12-78); BILIRUBIN,TOTAL 0.4 MG/DL (0.2-1.0); BLOOD UREA NITROGEN 15 MG/DL (7-18); CALCIUM LEVEL 9.2 MG/DL (8.8-10.2); CARBON DIOXIDE LEVEL 31 MEQ/L (21-32); CHLORIDE LEVEL 103 MEQ/L (98-107); CREATININE FOR GFR 0.89 MG/DL (0.55-1.30); GLOMERULAR FILTRATION RATE > 60.0 (>39); GLUCOSE, FASTING 189 MG/DL (70-100); IMMUNOGLOBULIN G 1220 MG/DL (681-1648); IMMUNOGLOBULIN M 78.6 MG/DL (40-230); LDH LACTATE DEHYDROGENASE 231 U/L (84-246); SODIUM LEVEL 141 MEQ/L (136-145)
== END ==
LOC: M PLALAB 12:06
PROVIDERS: ATTEND Nurse Practitioner Family
DX: C82.13 Follicular lymphoma grade II, intra-abdominal lymph nodes (principal)

== ENCOUNTER → 2021-06-16 | Outpatient (REF) | payer OTHER ==
[~2021-06-16] MED LIST changes: -OMEP-173 PO; +OMEP-218 PO
== END ==
LOC: M SFHCWAGY 12:52
PROVIDERS: ATTEND Nurse Practitioner Women's Health
DX: N93.9 Abnormal uterine and vaginal bleeding, unspecified (principal); Z12.4 Encounter for screening for malignant neoplasm of cervix; N95.0 Postmenopausal bleeding; Z77.9 Other contact with and (suspected) exposures hazardous to health; Z01.419 Encounter for gynecological examination (general) (routine) without abnormal findings

== ENCOUNTER → 2021-06-22 | Outpatient (CLI) | payer OTHER ==
[~2021-06-22] MED LIST changes: +OMEP-173 PO; -OMEP-218 PO
== END ==
LOC: M WHC 10:26
PROVIDERS: ATTEND Nurse Practitioner Women's Health
DX: N85.8 Other specified noninflammatory disorders of uterus (principal)

== ENCOUNTER → 2021-09-07 | Outpatient (CLI) | payer OTHER ==
[2021-09-07 13:36] LABS: ALBUMIN 3.7 GM/DL (3.2-5.2); BILIRUBIN,TOTAL 0.5 MG/DL (0.2-1.0); CALCIUM LEVEL 9.1 MG/DL (8.8-10.2); CREATININE FOR GFR 1.04 MG/DL (0.55-1.30); GLOMERULAR FILTRATION RATE 54.6 (>39); POTASSIUM SERUM 4.1 MEQ/L (3.5-5.1); TOTAL PROTEIN 6.9 GM/DL (6.4-8.2)
== END ==
LOC: M PLALAB 11:25
PROVIDERS: ATTEND Nurse Practitioner Family
DX: C82.13 Follicular lymphoma grade II, intra-abdominal lymph nodes (principal)

== ENCOUNTER → 2021-09-09 | Outpatient (CLI) | payer OTHER ==
[~2021-09-09] MED LIST changes: +GASTROGRAFIN SOLUTION 30ML (Q9963) As Ordered ONE; +ISOVUE-370 76% 100ML VIAL As Ordered ONE
== END ==
LOC: M RAD 10:47
PROVIDERS: ATTEND Internal Medicine Hematology & Oncology
DX: C83.38 Diffuse large B-cell lymphoma, lymph nodes of multiple sites (principal)

== ENCOUNTER → 2021-10-14 | Outpatient (CLI) | payer OTHER, MEDICARE ==
[~2021-10-14] MED LIST changes: -GASTROGRAFIN SOLUTION 30ML (Q9963) As Ordered ONE; -ISOVUE-370 76% 100ML VIAL As Ordered ONE
[2021-10-14 16:18] LABS: BASO % 0.4 % (0.0-1.0); HEMATOCRIT 40.9 % (36.0-47.0); HEMOGLOBIN 13.8 g/dl (12.0-15.5); LYMPH # 1.9 10^3/uL (1.5-5.0); LYMPH % 27.1 % (24.0-44.0); MEAN CORPUSCULAR HEMOGLOBIN 32.9 pg (27.0-33.0); MEAN CORPUSCULAR HGB CONC 33.7 g/dl (32.0-36.5); MEAN CORPUSCULAR VOLUME 97.6 fl (80.0-96.0); MONO # 1.1 10^3/uL (0.0-0.8); NEUTROPHILS # 3.9 10^3/uL (1.5-8.5); NEUTROPHILS % 56.1 % (36.0-66.0); PLATELET COUNT, AUTOMATED 108 10^3/uL (150-450); RED BLOOD COUNT 4.19 10^6/uL (4.00-5.40)
[2021-10-14 16:44] LABS: CALCIUM LEVEL 9.4 MG/DL (8.8-10.2); CREATININE FOR GFR 1.1 MG/DL (0.55-1.30); GLOMERULAR FILTRATION RATE 51.1 (>39); POTASSIUM SERUM 3.9 MEQ/L (3.5-5.1)
== END ==
LOC: M WUC 13:02
PROVIDERS: ATTEND Physician Assistant
DX: R06.02 Shortness of breath (principal); J20.9 Acute bronchitis, unspecified

== ENCOUNTER → 2021-10-21 | Outpatient (CLI) | payer MEDICARE, OTHER ==
[2021-10-21 17:33] LABS: HEMATOCRIT 44.6 % (36.0-47.0); HEMOGLOBIN 15.1 g/dl (12.0-15.5); MEAN CORPUSCULAR HEMOGLOBIN 33.5 pg (27.0-33.0); MEAN CORPUSCULAR HGB CONC 33.9 g/dl (32.0-36.5); MEAN CORPUSCULAR VOLUME 98.9 fl (80.0-96.0); PLATELET COUNT, AUTOMATED 197 10^3/uL (150-450); RED BLOOD COUNT 4.51 10^6/uL (4.00-5.40); WHITE BLOOD COUNT 9.5 10^3/uL (4.0-10.0)
== END ==
LOC: M PLALAB 14:38
PROVIDERS: ATTEND Family Medicine
DX: K92.1 Melena (principal)

== ENCOUNTER 2021-10-26 15:54 | Emergency (ER) | payer OTHER ==
[~2021-10-26] VITALS: Ht 165.1 cm; Wt 63.6 kg
[2021-10-26] MEDS ORDERED: DOXY-443 (16:13)
[2021-10-26] MEDS ORDERED: METO50TA7 PO (16:13)
[2021-10-26 21:22] LABS: BASO # 0.1 10^3/uL (0.0-0.2); BASO % 0.5 % (0.0-1.0); EOS # 0.1 10^3/uL (0.0-0.5); EOS % 0.9 % (0.0-3.0); HEMATOCRIT 41.4 % (36.0-47.0); HEMOGLOBIN 14.4 g/dl (12.0-15.5); LYMPH # 3.6 10^3/uL (1.5-5.0); LYMPH % 37.1 % (24.0-44.0); MEAN CORPUSCULAR HGB CONC 34.8 g/dl (32.0-36.5); MEAN CORPUSCULAR VOLUME 97.6 fl (80.0-96.0); MONO # 1.4 10^3/uL (0.0-0.8); MONO % 14.3 % (2.0-8.0); NEUTROPHILS # 4.6 10^3/uL (1.5-8.5); NEUTROPHILS % 46.8 % (36.0-66.0); PLATELET COUNT, AUTOMATED 136 10^3/uL (150-450); RED BLOOD COUNT 4.24 10^6/uL (4.00-5.40); WHITE BLOOD COUNT 9.7 10^3/uL (4.0-10.0)
[2021-10-26 21:31] LABS: INR 1.91; PROTHROMBIN TIME 22.3 SECONDS (12.7-14.5)
[2021-10-26 21:32] LABS: PARTIAL THROMBOPLASTIN TIME 46.8 SECONDS (25.9-37.0)
[2021-10-26 21:56] LABS: ALBUMIN 3.3 GM/DL (3.2-5.2); BILIRUBIN,DIRECT 0.2 MG/DL (0.0-0.2); BILIRUBIN,TOTAL 0.6 MG/DL (0.2-1.0); CALCIUM LEVEL 8.8 MG/DL (8.8-10.2); CREATININE FOR GFR 1.19 MG/DL (0.55-1.30); DIGOXIN LEVEL 0.9 NG/ML (0.5-2.0); GLOMERULAR FILTRATION RATE 46.7 (>39); POTASSIUM SERUM 3.4 MEQ/L (3.5-5.1); TOTAL PROTEIN 6.4 GM/DL (6.4-8.2)
[2021-10-26] MEDS ORDERED: MUCI600T31 PO (22:43)
[2021-10-26] MEDS ORDERED: BENZ200C70 PO (22:43)
[2021-10-26] MEDS ORDERED: guaiFENesin ER 600 MG TAB PO ONE (22:45)
[2021-10-26] MEDS ORDERED: BENZONATATE 100MG CAPSULE PO ONE (22:45)
[2021-10-26 23:16] VITALS: BP 96/43
== END 2021-10-26 23:30 | disposition home or self-care (01) ==
LOC: M ED 15:54
DX: R05.9 Cough, unspecified (principal); B34.8 Other viral infections of unspecified site; I42.0 Dilated cardiomyopathy; I48.91 Unspecified atrial fibrillation; I50.9 Heart failure, unspecified; C82.90 Follicular lymphoma, unspecified, unspecified site; Z87.891 Personal history of nicotine dependence; Z88.1 Allergy status to other antibiotic agents; Z79.899 Other long term (current) drug therapy

== ENCOUNTER → 2021-12-14 | Outpatient (CLI) | payer OTHER ==
[~2021-12-14] MED LIST changes: +BENZ200C70 PO; +DOXY-443; +METO50TA7 PO; +MUCI600T31 PO
[2021-12-14 13:24] LABS: BASO % 0.4 % (0.0-1.0); EOS # 0.2 10^3/uL (0.0-0.5); EOS % 2.1 % (0.0-3.0); HEMATOCRIT 41.4 % (36.0-47.0); HEMOGLOBIN 13.6 g/dl (12.0-15.5); LYMPH # 2.1 10^3/uL (1.5-5.0); MEAN CORPUSCULAR HEMOGLOBIN 33.1 pg (27.0-33.0); MEAN CORPUSCULAR HGB CONC 32.9 g/dl (32.0-36.5); MEAN CORPUSCULAR VOLUME 100.7 fl (80.0-96.0); NEUTROPHILS % 54.4 % (36.0-66.0); PLATELET COUNT, AUTOMATED 145 10^3/uL (150-450); RED BLOOD COUNT 4.11 10^6/uL (4.00-5.40); WHITE BLOOD COUNT 7.3 10^3/uL (4.0-10.0)
[2021-12-14 17:03] LABS: ALBUMIN 3.7 GM/DL (3.2-5.2); ALT/SGPT 33 U/L (12-78); BILIRUBIN,TOTAL 0.6 MG/DL (0.2-1.0); BLOOD UREA NITROGEN 11 MG/DL (7-18); CALCIUM LEVEL 9.7 MG/DL (8.8-10.2); CARBON DIOXIDE LEVEL 30 MEQ/L (21-32); CHLORIDE LEVEL 102 MEQ/L (98-107); CREATININE FOR GFR 0.95 MG/DL (0.55-1.30); GLOMERULAR FILTRATION RATE > 60.0 (>39); GLUCOSE, FASTING 166 MG/DL (70-100); LDH LACTATE DEHYDROGENASE 282 U/L (84-246); POTASSIUM SERUM 3.4 MEQ/L (3.5-5.1); SODIUM LEVEL 139 MEQ/L (136-145); TOTAL PROTEIN 6.8 GM/DL (6.4-8.2)
== END ==
LOC: M PLALAB 11:14
PROVIDERS: ATTEND Internal Medicine Hematology & Oncology
DX: C83.38 Diffuse large B-cell lymphoma, lymph nodes of multiple sites (principal)

== ENCOUNTER → 2022-03-21 | Outpatient (REF) | payer OTHER | LOC: M SFHCPLAZ 17:14 | PROVIDERS: ATTEND Physician Assistant | DX: N30.01 Acute cystitis with hematuria (principal) ==

== ENCOUNTER → 2022-04-15 | Outpatient (REF) | payer OTHER ==
[2022-04-15 18:04] LABS: APPEARANCE, URINE MANUAL CLEAR (CLEAR); COLOR, URINE MANUAL LT YELLOW (YELLOW)
[2022-04-15 18:05] LABS: BILIRUBIN, URINE MANUAL NEGATIVE (NEGATIVE); BLOOD URINE MANUAL NEGATIVE (NEGATIVE); GLUCOSE, URINE (UA) MANUAL NEGATIVE (NEGATIVE); KETONE, URINE MANUAL NEGATIVE (NEGATIVE); LEUKOCYTE ESTERASE, URINE MAN NEGATIVE (NEGATIVE); NITRITE, URINE MANUAL NEGATIVE (NEGATIVE); PROTEIN, URINE MANUAL NEGATIVE (NEGATIVE); SPECIFIC GRAVITY,URINE MANUAL 1.015 (1.002-1.035); UROBILINOGEN, URINE MANUAL NORMAL (NORMAL)
== END ==
LOC: M SFHCPLAZ 16:50
PROVIDERS: ATTEND Physician Assistant
DX: R31.9 Hematuria, unspecified (principal)

== ENCOUNTER → 2022-04-26 | Outpatient (REF) | payer OTHER | LOC: M SFHCPLAZ 13:06 | PROVIDERS: ATTEND Physician Assistant | DX: R05.1 Acute cough (principal) ==

== ENCOUNTER 2022-05-23 12:52 | Outpatient (RCR) | payer OTHER | END 2022-06-04 | LOC: M ST 12:52 | PROVIDERS: ATTEND Otolaryngology | DX: R49.0 Dysphonia (principal) ==

== ENCOUNTER → 2022-06-13 | Outpatient (REF) | payer OTHER, MEDICARE | LOC: M WUC 16:17 | PROVIDERS: ATTEND Student in an Organized Health Care Education/Training Program | DX: R30.0 Dysuria (principal) ==

== ENCOUNTER → 2022-06-21 | Outpatient (REF) | payer OTHER, MEDICARE | LOC: M WUC 16:13 | PROVIDERS: ATTEND Physician Assistant | DX: R30.0 Dysuria (principal) ==

== ENCOUNTER → 2022-06-23 | Outpatient (CLI) | payer MEDICARE, OTHER ==
[~2022-06-23] MED LIST changes: +NITR100C2
[2022-06-23 15:35] LABS: BLOOD UREA NITROGEN 14 MG/DL (9-23); CALCIUM LEVEL 8.8 MG/DL (8.3-10.6); CARBON DIOXIDE LEVEL 32 MMOL/L (20-31); CHLORIDE LEVEL 102 MMOL/L (98-107); CHOLESTEROL LEVEL 132 MG/DL (<200); CHOLESTEROL RISK RATIO 2.71 (<5); CREATININE FOR GFR 0.92 MG/DL (0.55-1.30); GLOMERULAR FILTRATION RATE > 60.0 (>39); GLUCOSE, FASTING 108 MG/DL (74-106); HDL CHOLESTEROL 48.7 MG/DL (>40); LDL CHOLESTEROL 66.5 MG/DL (<100); NON-HDL-C 83 MG/DL; POTASSIUM SERUM 4.2 MMOL/L (3.5-5.1); SODIUM LEVEL 137 MMOL/L (136-145); TRIGLYCERIDES LEVEL 84 MG/DL (<150)
[2022-06-23 15:37] LABS: THYROID STIMULATING HORMONE 1.291 uIU/ML (0.55-4.78)
== END ==
LOC: M PLALAB 11:45
PROVIDERS: ATTEND Physician Assistant
DX: I25.10 Atherosclerotic heart disease of native coronary artery without angina pectoris (principal)

== ENCOUNTER → 2022-07-11 | Outpatient (REF) | payer OTHER, MEDICARE ==
[~2022-07-11] MED LIST changes: -NITR100C2
== END ==
LOC: M WUC 19:43
PROVIDERS: ATTEND Student in an Organized Health Care Education/Training Program
DX: R30.0 Dysuria (principal)

== ENCOUNTER → 2022-07-26 | Outpatient (REF) | payer OTHER, MEDICARE ==
[~2022-07-26] MED LIST changes: +NITR100C2
[2022-07-26 16:04] LABS: APPEARANCE, URINE CLEAR (CLEAR); BACTERIA, URINE AUTO NEGATIVE (NEGATIVE); BILIRUBIN, URINE AUTO NEGATIVE (NEGATIVE); BLOOD, URINE BLOOD NEGATIVE (NEGATIVE); COLOR, URINE YELLOW (YELLOW); GLUCOSE, URINE (UA) AUTO NEGATIVE (NEGATIVE); KETONE, URINE AUTO NEGATIVE (NEGATIVE); LEUKOCYTE ESTERASE, URINE AUTO NEGATIVE (NEGATIVE); NITRITE, URINE AUTO NEGATIVE (NEGATIVE); PROTEIN, URINE AUTO NEGATIVE (NEGATIVE); RBC, URINE AUTO 1 /HPF (0-3); SPECIFIC GRAVITY URINE AUTO 1.008 (1.002-1.035); SQUAMOUS EPITHELIAL CELL UR AU 0 /HPF (0-6); UROBILINOGEN, URINE AUTO 0.2 mg/dL (0.0-2.0); WBC, URINE AUTO 1 /HPF (0-3)
== END ==
LOC: M SMT 15:45
PROVIDERS: ATTEND Physician Assistant
DX: N30.90 Cystitis, unspecified without hematuria (principal)

== ENCOUNTER → 2022-07-26 | Outpatient (CLI) | payer MEDICARE, OTHER ==
[~2022-07-26] MED LIST changes: +GASTROGRAFIN SOLUTION 30ML As Ordered ONE; +ISOVUE-370 76% 100ML VIAL As Ordered ONE
== END ==
LOC: M RAD 13:51
PROVIDERS: ATTEND Internal Medicine Medical Oncology
DX: C82.90 Follicular lymphoma, unspecified, unspecified site (principal)

== ENCOUNTER → 2022-08-12 | Outpatient (CLI) | payer OTHER, MEDICARE ==
[~2022-08-12] MED LIST changes: -GASTROGRAFIN SOLUTION 30ML As Ordered ONE; -ISOVUE-370 76% 100ML VIAL As Ordered ONE
== END ==
LOC: M PLAIMG 12:59
PROVIDERS: ATTEND Physician Assistant
DX: M25.552 Pain in left hip (principal)

== ENCOUNTER → 2022-08-30 | Outpatient (POV) | payer OTHER, MEDICARE ==
[~2022-08-30] VITALS: Ht 165.1 cm; Wt 59.0 kg
[2022-08-30 11:05] VITALS: BP 119/63
== END ==
LOC: M IRPOV 10:45
PROVIDERS: ATTEND Radiology Diagnostic Radiology
DX: Z45.2 Encounter for adjustment and management of vascular access device (principal); Z85.72 Personal history of non-Hodgkin lymphomas; Z79.02 Long term (current) use of antithrombotics/antiplatelets; Z87.891 Personal history of nicotine dependence; Z88.1 Allergy status to other antibiotic agents

== ENCOUNTER → 2022-08-31 | Outpatient (REF) | payer OTHER | LOC: M WUC 22:40 | PROVIDERS: ATTEND Nurse Practitioner Family | DX: N39.0 Urinary tract infection, site not specified (principal); R30.0 Dysuria ==

== ENCOUNTER 2022-09-26 13:29 | Outpatient (RCR) | payer OTHER, MEDICARE ==
[~2022-09-26 13:29] MED LIST changes: +ARTIDRO4 OU; -POLYOPD OU
== END 2022-10-02 ==
LOC: M ST 13:29
PROVIDERS: ATTEND Otolaryngology
DX: R49.0 Dysphonia (principal)

== ENCOUNTER → 2022-09-29 | Outpatient (CLI) | payer MEDICARE, OTHER | LOC: M RAD 07:51 | PROVIDERS: ATTEND Otolaryngology | DX: E04.2 Nontoxic multinodular goiter (principal); C82.90 Follicular lymphoma, unspecified, unspecified site; R22.2 Localized swelling, mass and lump, trunk ==

== ENCOUNTER 2022-10-10 12:57 | Outpatient (RCR) | payer OTHER, MEDICARE | END 2022-11-02 | LOC: M ST 12:57 | PROVIDERS: ATTEND Otolaryngology | DX: R49.0 Dysphonia (principal) ==

== ENCOUNTER → 2022-11-11 | Outpatient (CLI) | payer OTHER, MEDICARE ==
[2022-11-11 18:54] LABS: BASO % 0.3 % (0.0-1.0); EOS # 0.1 10^3/uL (0.0-0.5); EOS % 1.4 % (0.0-3.0); HEMATOCRIT 41.5 % (36.0-47.0); HEMOGLOBIN 13.8 g/dl (12.0-15.5); LYMPH # 2.3 10^3/uL (1.5-5.0); LYMPH % 38.9 % (24.0-44.0); MEAN CORPUSCULAR HEMOGLOBIN 33.9 pg (27.0-33.0); MEAN CORPUSCULAR HGB CONC 33.3 g/dl (32.0-36.5); MONO # 0.8 10^3/uL (0.0-0.8); MONO % 13.3 % (2.0-8.0); NEUTROPHILS # 2.7 10^3/uL (1.5-8.5); NEUTROPHILS % 45.9 % (36.0-66.0); PLATELET COUNT, AUTOMATED 130 10^3/uL (150-450); RED BLOOD COUNT 4.07 10^6/uL (4.00-5.40); WHITE BLOOD COUNT 5.9 10^3/uL (4.0-10.0)
[2022-11-11 19:06] LABS: ERYTHROCYTE SEDIMENTATION RATE 6 mm/hr (0-30); HEMOGLOBIN A1c 6.4 % (4.0-6.0)
[2022-11-11 20:15] LABS: LIPASE 23 U/L (12-53)
[2022-11-11 20:17] LABS: ALBUMIN 3.7 G/DL (3.2-5.2); ALKALINE PHOSPHATASE 84 U/L (46-116); ALT/SGPT 20 U/L (7.0-40); AST/SGOT 19 U/L (<34); BILIRUBIN,TOTAL 0.5 MG/DL (0.3-1.2); BLOOD UREA NITROGEN 20 MG/DL (9-23); CALCIUM LEVEL 9.1 MG/DL (8.3-10.6); CARBON DIOXIDE LEVEL 31 MMOL/L (20-31); CHLORIDE LEVEL 103 MMOL/L (98-107); CREATININE FOR GFR 0.97 MG/DL (0.55-1.30); GLUCOSE, FASTING 130 MG/DL (74-106); POTASSIUM SERUM 3.7 MMOL/L (3.5-5.1); SODIUM LEVEL 141 MMOL/L (136-145); TOTAL PROTEIN 6.3 G/DL (5.7-8.2)
[2022-11-11 21:47] LABS: C REACTIVE PROTEIN QUANTITATIV < 0.40 MG/DL (<1.0)
== END ==
LOC: M PLAIMG 16:11
PROVIDERS: ATTEND Physician Assistant
DX: Z87.19 Personal history of other diseases of the digestive system (principal)

== ENCOUNTER → 2022-12-07 | Outpatient (REF) | payer OTHER, MEDICARE ==
[~2022-12-07] MED LIST changes: +JARD1TAB; +POTA-151 PO
== END ==
LOC: M SFHCWAGY 15:17
PROVIDERS: ATTEND Nurse Practitioner Family
DX: N89.9 Noninflammatory disorder of vagina, unspecified (principal)

== ENCOUNTER → 2023-02-17 | Outpatient (CLI) | payer OTHER, MEDICARE ==
[2023-02-17 15:03] LABS: BASO % 0.5 % (0.0-1.0); EOS # 0.1 10^3/uL (0.0-0.5); EOS % 1.6 % (0.0-3.0); HEMATOCRIT 47.5 % (36.0-47.0); HEMOGLOBIN 15.7 g/dl (12.0-15.5); LYMPH # 1.7 10^3/uL (1.5-5.0); LYMPH % 21.9 % (24.0-44.0); MEAN CORPUSCULAR HEMOGLOBIN 33.5 pg (27.0-33.0); MEAN CORPUSCULAR HGB CONC 33.1 g/dl (32.0-36.5); MEAN CORPUSCULAR VOLUME 101.3 fl (80.0-96.0); MONO # 1.3 10^3/uL (0.0-0.8); MONO % 17.3 % (2.0-8.0); NEUTROPHILS # 4.4 10^3/uL (1.5-8.5); PLATELET COUNT, AUTOMATED 143 10^3/uL (150-450); RED BLOOD COUNT 4.69 10^6/uL (4.00-5.40); WHITE BLOOD COUNT 7.6 10^3/uL (4.0-10.0)
[2023-02-17 15:26] LABS: HEMOGLOBIN A1c 6.8 % (4.0-6.0)
[2023-02-17 15:35] LABS: THYROID STIMULATING HORMONE 1.345 uIU/ML (0.55-4.78)
[2023-02-17 15:36] LABS: ERYTHROCYTE SEDIMENTATION RATE 13 mm/hr (0-30)
[2023-02-17 15:37] LABS: C REACTIVE PROTEIN QUANTITATIV < 0.40 MG/DL (<1.0)
[2023-02-17 15:38] LABS: TOTAL IRON BINDING CAPACITY 364 UG/DL (250-425)
[2023-02-17 15:39] LABS: ALBUMIN 3.9 G/DL (3.2-5.2); ALKALINE PHOSPHATASE 84 U/L (46-116); ALT/SGPT 33 U/L (7.0-40); AST/SGOT 28 U/L (<34); BILIRUBIN,TOTAL 0.8 MG/DL (0.3-1.2); BLOOD UREA NITROGEN 20 MG/DL (9-23); CALCIUM LEVEL 9.3 MG/DL (8.3-10.6); CARBON DIOXIDE LEVEL 34 MMOL/L (20-31); CHLORIDE LEVEL 100 MMOL/L (98-107); CREATININE FOR GFR 0.98 MG/DL (0.55-1.30); GLOMERULAR FILTRATION RATE 58.3 (>39); GLUCOSE, FASTING 115 MG/DL (74-106); IRON (FE) 144 UG/DL (50-170); MAGNESIUM LEVEL 2.1 MG/DL (1.8-2.4); PERCENT SATURATION 39.6 % (13.2-45.0); POTASSIUM SERUM 3.8 MMOL/L (3.5-5.1); SODIUM LEVEL 140 MMOL/L (136-145)
== END ==
LOC: M PLALAB 10:07
PROVIDERS: ATTEND Physician Assistant
DX: H04.123 Dry eye syndrome of bilateral lacrimal glands (principal)

== ENCOUNTER → 2023-04-06 | Outpatient (CLI) | payer OTHER, MEDICARE ==
[~2023-04-06] MED LIST changes: +CLOBETASOL; +PREDOPD OP
== END ==
LOC: M PLALAB 09:13
PROVIDERS: ATTEND Physician Assistant
DX: Z53.9 Procedure and treatment not carried out, unspecified reason (principal); I42.7 Cardiomyopathy due to drug and external agent; T45.1X5A Adverse effect of antineoplastic and immunosuppressive drugs, initial encounter

== ENCOUNTER → 2023-04-06 | Outpatient (CLI) | payer OTHER, MEDICARE ==
[2023-04-06 14:35] LABS: ALBUMIN 3.7 G/DL (3.2-5.2); CREATININE FOR GFR 1.01 MG/DL (0.55-1.30); GLOMERULAR FILTRATION RATE 56.1 (>32); MAGNESIUM LEVEL 2.2 MG/DL (1.8-2.4); PHOSPHORUS LEVEL 3.6 MG/DL (2.4-5.1); POTASSIUM SERUM 3.3 MMOL/L (3.5-5.1)
[2023-04-06 14:36] LABS: PERCENT SATURATION 28.1 % (13.2-45.0)
[2023-04-06 14:37] LABS: FERRITIN 126.6 NG/ML (7.3-270.7)
[2023-04-06 14:38] LABS: FOLATE 19.8 NG/ML (>5.4)
== END ==
LOC: M PLALAB 09:11
PROVIDERS: ATTEND Physician Assistant
DX: R25.2 Cramp and spasm (principal); R20.0 Anesthesia of skin; R20.2 Paresthesia of skin

== ENCOUNTER → 2023-04-23 | Outpatient (REF) | payer OTHER, MEDICARE | LOC: M LAB REF 20:38 | PROVIDERS: ATTEND Student in an Organized Health Care Education/Training Program | DX: R30.0 Dysuria (principal) ==

== ENCOUNTER 2023-04-27 20:27 | Emergency (ER) | payer OTHER, MEDICARE ==
[~2023-04-27] VITALS: Ht 162.6 cm; Wt 57.3 kg
[2023-04-27 21:34] LABS: BASO % 0.4 % (0.0-1.0); EOS # 0.1 10^3/uL (0.0-0.5); EOS % 0.7 % (0.0-3.0); HEMATOCRIT 43.7 % (36.0-47.0); HEMOGLOBIN 14.9 g/dl (12.0-15.5); LYMPH # 1.8 10^3/uL (1.5-5.0); LYMPH % 25.3 % (24.0-44.0); MEAN CORPUSCULAR HEMOGLOBIN 34.4 pg (27.0-33.0); MEAN CORPUSCULAR HGB CONC 34.1 g/dl (32.0-36.5); MEAN CORPUSCULAR VOLUME 100.9 fl (80.0-96.0); MONO % 14.5 % (2.0-8.0); NEUTROPHILS # 4.1 10^3/uL (1.5-8.5); NEUTROPHILS % 58.7 % (36.0-66.0); PLATELET COUNT, AUTOMATED 121 10^3/uL (150-450); RED BLOOD COUNT 4.33 10^6/uL (4.00-5.40); WHITE BLOOD COUNT 6.9 10^3/uL (4.0-10.0)
[2023-04-27 21:49] LABS: INR 3.03; PROTHROMBIN TIME 30.3 SECONDS (12.5-14.5)
[2023-04-27 22:04] LABS: RSV AMPLIFICATION NEGATIVE (NEGATIVE)
[2023-04-27 22:24] LABS: ALBUMIN 3.8 G/DL (3.2-5.2); BILIRUBIN,DIRECT 0.3 MG/DL (<0.4); BILIRUBIN,TOTAL 0.7 MG/DL (0.3-1.2); CALCIUM LEVEL 8.8 MG/DL (8.3-10.6); CREATININE FOR GFR 1.42 MG/DL (0.55-1.30); GLOMERULAR FILTRATION RATE 37.9 (>32); POTASSIUM SERUM 4.8 MMOL/L (3.5-5.1); TOTAL PROTEIN 6.8 G/DL (5.7-8.2)
[2023-04-27 22:25] LABS: MB/CK RELATIVE INDEX 0.91 (< OR =4)
[2023-04-28] MEDS ORDERED: IPRATROPIUM 0.5MG/ALBUTEROL 2.5MG INH SOL UD 3ML (DUONEB) NEB ONE (00:25)
[2023-04-28] MEDS ORDERED: ISOVUE-370 76% 100ML VIAL As Ordered ONE (00:32)
[2023-04-28 02:18] LABS: CK-MB VALUE MASS 2.6 NG/ML (<3.6)
[2023-04-28 02:22] LABS: MB/CK RELATIVE INDEX 1.49 (< OR =4)
[2023-04-28 06:00] VITALS: BP 106/68; TEMP 98.1; O2SAT 95
== END 2023-04-28 06:30 | disposition home or self-care (01) ==
LOC: M ED 20:27
DX: R06.00 Dyspnea, unspecified (principal); I50.9 Heart failure, unspecified; I48.91 Unspecified atrial fibrillation; I51.7 Cardiomegaly; Z95.0 Presence of cardiac pacemaker; Z85.72 Personal history of non-Hodgkin lymphomas; Z79.899 Other long term (current) drug therapy; Z88.1 Allergy status to other antibiotic agents
CPT/HCPCS: 71046; 71275; 80048; 80076; 82550; 82553; 83880; 84484; 85025; 85610; 87486; 87581; 87631; 87633; 87798; 93005; 93041; 94640; 94760; 99285; Q9967

== ENCOUNTER → 2023-05-01 | Outpatient (CLI) | payer OTHER, MEDICARE | LOC: M WHC 10:48 | PROVIDERS: ATTEND Physician Assistant | DX: M85.851 Other specified disorders of bone density and structure, right thigh (principal); M85.852 Other specified disorders of bone density and structure, left thigh ==

== ENCOUNTER → 2023-05-09 | Outpatient (CLI) | payer OTHER, MEDICARE ==
[2023-05-09 14:48] LABS: ALBUMIN 3.9 G/DL (3.2-5.2); BLOOD UREA NITROGEN 24 MG/DL (9-23); CALCIUM LEVEL 9.4 MG/DL (8.3-10.6); CARBON DIOXIDE LEVEL 31 MMOL/L (20-31); CHLORIDE LEVEL 102 MMOL/L (98-107); CREATININE FOR GFR 0.94 MG/DL (0.55-1.30); GLOMERULAR FILTRATION RATE > 60.0 (>32); GLUCOSE, FASTING 110 MG/DL (74-106); POTASSIUM SERUM 4.3 MMOL/L (3.5-5.1); SODIUM LEVEL 140 MMOL/L (136-145)
== END ==
LOC: M PLALAB 10:30
PROVIDERS: ATTEND Physician Assistant
DX: E87.6 Hypokalemia (principal)

== ENCOUNTER → 2023-05-10 | Outpatient (CLI) | payer MEDICARE, OTHER | LOC: M PLALAB 14:44 | PROVIDERS: ATTEND Physician Assistant Medical | DX: I42.0 Dilated cardiomyopathy (principal) | CPT/HCPCS: 36415; 83880; G0463 ==

== ENCOUNTER → 2023-05-18 | Outpatient (CLI) | payer OTHER, MEDICARE | LOC: M RAD 12:33 | PROVIDERS: ATTEND Physician Assistant | DX: I70.203 Unspecified atherosclerosis of native arteries of extremities, bilateral legs (principal); R25.2 Cramp and spasm; R20.0 Anesthesia of skin; R20.2 Paresthesia of skin ==

== ENCOUNTER → 2023-05-23 | Outpatient (CLI) | payer OTHER, MEDICARE ==
[2023-05-23 15:02] LABS: ALBUMIN 3.8 G/DL (3.2-5.2); ALKALINE PHOSPHATASE 80 U/L (46-116); ALT/SGPT 25 U/L (7.0-40); AST/SGOT 26 U/L (<34); BILIRUBIN,TOTAL 1.2 MG/DL (0.3-1.2); BLOOD UREA NITROGEN 15 MG/DL (9-23); CALCIUM LEVEL 9.6 MG/DL (8.3-10.6); CARBON DIOXIDE LEVEL 30 MMOL/L (20-31); CHLORIDE LEVEL 102 MMOL/L (98-107); CREATININE FOR GFR 0.94 MG/DL (0.55-1.30); GLOMERULAR FILTRATION RATE > 60.0 (>32); GLUCOSE, FASTING 127 MG/DL (74-106); POTASSIUM SERUM 3.7 MMOL/L (3.5-5.1); SODIUM LEVEL 139 MMOL/L (136-145); TOTAL PROTEIN 6.4 G/DL (5.7-8.2)
== END ==
LOC: M PLALAB 11:10
PROVIDERS: ATTEND Physician Assistant Medical
DX: I50.22 Chronic systolic (congestive) heart failure (principal)

== ENCOUNTER 2023-06-09 16:11 | Emergency (ER) | payer OTHER, MEDICARE ==
[~2023-06-09] VITALS: Ht 165.1 cm; Wt 51.5 kg
[2023-06-10 00:56] LABS: BASO % 0.6 % (0.0-1.0); EOS # 0.1 10^3/uL (0.0-0.5); HEMATOCRIT 46.8 % (36.0-47.0); HEMOGLOBIN 15.9 g/dl (12.0-15.5); LYMPH # 2.1 10^3/uL (1.5-5.0); LYMPH % 34.4 % (24.0-44.0); MEAN CORPUSCULAR HEMOGLOBIN 33.7 pg (27.0-33.0); MEAN CORPUSCULAR VOLUME 99.2 fl (80.0-96.0); MONO # 1.1 10^3/uL (0.0-0.8); MONO % 17.6 % (2.0-8.0); NEUTROPHILS # 2.9 10^3/uL (1.5-8.5); NEUTROPHILS % 46.1 % (36.0-66.0); PLATELET COUNT, AUTOMATED 155 10^3/uL (150-450); RED BLOOD COUNT 4.72 10^6/uL (4.00-5.40); WHITE BLOOD COUNT 6.2 10^3/uL (4.0-10.0)
[2023-06-10 01:35] LABS: CK-MB VALUE MASS < 1.0 NG/ML (<3.6)
[2023-06-10 01:38] LABS: CPK CREATINE PHOSPHOKINASE 45 U/L (34-145); MB/CK RELATIVE INDEX 2.22 (< OR =4)
[2023-06-10] MEDS ORDERED: NS 500 ML IV ONE (01:55)
[2023-06-10 06:14] VITALS: BP 111/58; TEMP 98.3; O2SAT 100
== END 2023-06-10 06:17 | disposition home or self-care (01) ==
LOC: M ED 16:11
DX: U07.1 COVID-19 (principal); E87.6 Hypokalemia; I11.0 Hypertensive heart disease with heart failure; I50.20 Unspecified systolic (congestive) heart failure; K21.9 Gastro-esophageal reflux disease without esophagitis; K86.1 Other chronic pancreatitis; Z85.72 Personal history of non-Hodgkin lymphomas; Z95.810 Presence of automatic (implantable) cardiac defibrillator; Z88.1 Allergy status to other antibiotic agents; Z79.899 Other long term (current) drug therapy

== ENCOUNTER → 2023-07-01 | Outpatient (REF) | payer OTHER, MEDICARE | LOC: M WUC 18:59 | PROVIDERS: ATTEND Student in an Organized Health Care Education/Training Program | DX: R30.0 Dysuria (principal) ==

== ENCOUNTER → 2023-07-04 | Outpatient (CLI) | payer OTHER, MEDICARE ==
[2023-07-04 13:39] LABS: BASO % 0.3 % (0.0-1.0); EOS # 0.1 10^3/uL (0.0-0.5); EOS % 1.4 % (0.0-3.0); HEMATOCRIT 39.6 % (36.0-47.0); HEMOGLOBIN 13.3 g/dl (12.0-15.5); LYMPH # 1.1 10^3/uL (1.5-5.0); LYMPH % 18.7 % (24.0-44.0); MEAN CORPUSCULAR HEMOGLOBIN 34.4 pg (27.0-33.0); MEAN CORPUSCULAR HGB CONC 33.6 g/dl (32.0-36.5); MEAN CORPUSCULAR VOLUME 102.3 fl (80.0-96.0); MONO # 0.8 10^3/uL (0.0-0.8); MONO % 14.4 % (2.0-8.0); NEUTROPHILS # 3.8 10^3/uL (1.5-8.5); NEUTROPHILS % 64.9 % (36.0-66.0); RED BLOOD COUNT 3.87 10^6/uL (4.00-5.40); WHITE BLOOD COUNT 5.8 10^3/uL (4.0-10.0)
[2023-07-04 14:02] LABS: PLATELET COUNT, AUTOMATED 91 10^3/uL (150-450)
[2023-07-04 14:29] LABS: ALBUMIN 3.5 G/DL (3.2-5.2); BILIRUBIN,TOTAL 0.7 MG/DL (0.3-1.2); CALCIUM LEVEL 9.1 MG/DL (8.3-10.6); CREATININE FOR GFR 1.33 MG/DL (0.55-1.30); GLOMERULAR FILTRATION RATE 40.9 (>32); POTASSIUM SERUM 4.5 MMOL/L (3.5-5.1); TOTAL PROTEIN 6.3 G/DL (5.7-8.2)
== END ==
LOC: M PLAIMG 11:07
PROVIDERS: ATTEND Student in an Organized Health Care Education/Training Program
DX: R06.02 Shortness of breath (principal)

== ENCOUNTER → 2023-07-07 | Outpatient (CLI) | payer OTHER, MEDICARE ==
[2023-07-07 19:00] LABS: ALBUMIN 3.7 G/DL (3.2-5.2); BILIRUBIN,TOTAL 1.2 MG/DL (0.3-1.2); CALCIUM LEVEL 9.1 MG/DL (8.3-10.6); CREATININE FOR GFR 1.18 MG/DL (0.55-1.30); GLOMERULAR FILTRATION RATE 46.9 (>32); POTASSIUM SERUM 4.6 MMOL/L (3.5-5.1)
== END ==
LOC: M PLALAB 15:03
PROVIDERS: ATTEND Student in an Organized Health Care Education/Training Program
DX: Z87.448 Personal history of other diseases of urinary system (principal)

== ENCOUNTER → 2023-07-24 | Outpatient (CLI) | payer OTHER, MEDICARE | LOC: M CARPUL 12:33 | PROVIDERS: ATTEND Physician Assistant | DX: R06.02 Shortness of breath (principal) ==

== ENCOUNTER 2023-08-06 21:51 | Emergency (ER) | payer OTHER, MEDICARE ==
[~2023-08-06 21:51] MED LIST changes: +TORS20TA2 PO
[2023-08-06 23:00] LABS: BASO % 0.4 % (0.0-1.0); EOS # 0.1 10^3/uL (0.0-0.5); EOS % 1.3 % (0.0-3.0); HEMATOCRIT 41.2 % (36.0-47.0); HEMOGLOBIN 13.8 g/dl (12.0-15.5); LYMPH # 1.3 10^3/uL (1.5-5.0); LYMPH % 24.8 % (24.0-44.0); MEAN CORPUSCULAR HEMOGLOBIN 34.4 pg (27.0-33.0); MEAN CORPUSCULAR HGB CONC 33.5 g/dl (32.0-36.5); MEAN CORPUSCULAR VOLUME 102.7 fl (80.0-96.0); MONO # 0.7 10^3/uL (0.0-0.8); NEUTROPHILS # 3.1 10^3/uL (1.5-8.5); NEUTROPHILS % 59.3 % (36.0-66.0); PLATELET COUNT, AUTOMATED 111 10^3/uL (150-450); RED BLOOD COUNT 4.01 10^6/uL (4.00-5.40); WHITE BLOOD COUNT 5.3 10^3/uL (4.0-10.0)
[2023-08-06 23:59] LABS: ALBUMIN 3.9 G/DL (3.2-5.2); BILIRUBIN,TOTAL 0.8 MG/DL (0.3-1.2); CALCIUM LEVEL 8.7 MG/DL (8.3-10.6); CK-MB VALUE MASS 2.4 NG/ML (<3.6); CREATININE FOR GFR 0.96 MG/DL (0.55-1.30); GLOMERULAR FILTRATION RATE 59.5 (>32); MB/CK RELATIVE INDEX 4.06 (< OR =4); POTASSIUM SERUM 3.8 MMOL/L (3.5-5.1); TOTAL PROTEIN 6.7 G/DL (5.7-8.2)
[2023-08-07 03:22] LABS: CK-MB VALUE MASS 2.8 NG/ML (<3.6)
[2023-08-07] MEDS: IPRATROPIUM 0.5MG/ALBUTEROL 2.5MG INH SOL UD 3ML (DUONEB) NEB ONE (06:31)
[2023-08-07 07:02] VITALS: O2SAT 96
[2023-08-07 09:00] VITALS: BP 105/63; TEMP 97; O2SAT 94
[2023-08-07] MEDS ORDERED: TORS20TA2 PO (09:03)
== END 2023-08-07 09:21 | disposition home or self-care (01) ==
LOC: M ED 21:51
DX: I50.22 Chronic systolic (congestive) heart failure (principal); R06.00 Dyspnea, unspecified; E11.9 Type 2 diabetes mellitus without complications; I11.0 Hypertensive heart disease with heart failure; I25.119 Atherosclerotic heart disease of native coronary artery with unspecified angina pectoris; K59.00 Constipation, unspecified; Z88.8 Allergy status to other drugs, medicaments and biological substances; Z79.899 Other long term (current) drug therapy; Z79.84 Long term (current) use of oral hypoglycemic drugs

== ENCOUNTER → 2023-08-11 | Outpatient (CLI) | payer OTHER, MEDICARE ==
[2023-08-11 14:09] LABS: BASO % 0.7 % (0.0-1.0); EOS # 0.1 10^3/uL (0.0-0.5); EOS % 1.6 % (0.0-3.0); HEMOGLOBIN 14.4 g/dl (12.0-15.5); LYMPH # 1.4 10^3/uL (1.5-5.0); LYMPH % 24.9 % (24.0-44.0); MEAN CORPUSCULAR HEMOGLOBIN 34.5 pg (27.0-33.0); MEAN CORPUSCULAR HGB CONC 33.5 g/dl (32.0-36.5); MEAN CORPUSCULAR VOLUME 103.1 fl (80.0-96.0); MONO # 0.8 10^3/uL (0.0-0.8); MONO % 14.5 % (2.0-8.0); NEUTROPHILS # 3.3 10^3/uL (1.5-8.5); NEUTROPHILS % 58.1 % (36.0-66.0); PLATELET COUNT, AUTOMATED 121 10^3/uL (150-450); RED BLOOD COUNT 4.17 10^6/uL (4.00-5.40); WHITE BLOOD COUNT 5.7 10^3/uL (4.0-10.0)
[2023-08-11 14:34] LABS: THYROID STIMULATING HORMONE 1.123 uIU/ML (0.55-4.78)
[2023-08-11 14:35] LABS: FERRITIN 152.7 NG/ML (7.3-270.7)
[2023-08-11 14:36] LABS: FREE T4 1.38 NG/DL (0.89-1.76); IRON (FE) 121 UG/DL (50-170); PERCENT SATURATION 33.1 % (13.2-45.0); TOTAL IRON BINDING CAPACITY 366 UG/DL (250-425)
[2023-08-11 14:37] LABS: ALBUMIN 3.8 G/DL (3.2-5.2); ALKALINE PHOSPHATASE 110 U/L (46-116); ALT/SGPT 21 U/L (7.0-40); AST/SGOT 26 U/L (<34); BLOOD UREA NITROGEN 17 MG/DL (9-23); CALCIUM LEVEL 9.6 MG/DL (8.3-10.6); CARBON DIOXIDE LEVEL 34 MMOL/L (20-31); CHLORIDE LEVEL 99 MMOL/L (98-107); CREATININE FOR GFR 0.94 MG/DL (0.55-1.30); GLOMERULAR FILTRATION RATE > 60.0 (>32); GLUCOSE, FASTING 122 MG/DL (74-106); POTASSIUM SERUM 3.4 MMOL/L (3.5-5.1); SODIUM LEVEL 141 MMOL/L (136-145); TOTAL PROTEIN 6.7 G/DL (5.7-8.2)
== END ==
LOC: M PLALAB 10:07
PROVIDERS: ATTEND Physician Assistant
DX: I95.9 Hypotension, unspecified (principal); R53.83 Other fatigue; I50.22 Chronic systolic (congestive) heart failure

== ENCOUNTER 2023-09-13 20:48 | Emergency (ER) | payer OTHER, MEDICARE ==
[~2023-09-13] VITALS: Ht 165.1 cm; Wt 55.7 kg
[~2023-09-13 20:48] MED LIST changes: +METO200T15 PO; -METO200T28 PO; +NYST100084 TOP; -NYST10OI TOP
[2023-09-13 22:00] LABS: BASO % 0.5 % (0.0-1.0); EOS # 0.1 10^3/uL (0.0-0.5); EOS % 1.6 % (0.0-3.0); LYMPH # 1.2 10^3/uL (1.5-5.0); LYMPH % 21.2 % (24.0-44.0); MEAN CORPUSCULAR HEMOGLOBIN 34.6 pg (27.0-33.0); MEAN CORPUSCULAR HGB CONC 33.3 g/dl (32.0-36.5); MEAN CORPUSCULAR VOLUME 103.7 fl (80.0-96.0); MONO # 0.8 10^3/uL (0.0-0.8); MONO % 14.5 % (2.0-8.0); NEUTROPHILS # 3.5 10^3/uL (1.5-8.5); NEUTROPHILS % 61.8 % (36.0-66.0); PLATELET COUNT, AUTOMATED 104 10^3/uL (150-450); RED BLOOD COUNT 4.05 10^6/uL (4.00-5.40); WHITE BLOOD COUNT 5.7 10^3/uL (4.0-10.0)
[2023-09-13 23:06] LABS: CK-MB VALUE MASS < 1.0 NG/ML (<3.6); DIGOXIN LEVEL 1.5 NG/ML (0.8-2.0)
[2023-09-13 23:07] LABS: BLOOD UREA NITROGEN 22 MG/DL (9-23); CARBON DIOXIDE LEVEL 28 MMOL/L (20-31); CHLORIDE LEVEL 104 MMOL/L (98-107); CREATININE FOR GFR 1.08 MG/DL (0.55-1.30); GLUCOSE, FASTING 157 MG/DL (74-106); POTASSIUM SERUM 4.4 MMOL/L (3.5-5.1); SODIUM LEVEL 139 MMOL/L (136-145)
[2023-09-13 23:14] LABS: CPK CREATINE PHOSPHOKINASE 56 U/L (34-145); MB/CK RELATIVE INDEX 1.78 (< OR =4)
[2023-09-13] MEDS: FUROSEMIDE 40MG/4ML VIAL IV ONE (23:25)
[2023-09-14 02:37] VITALS: O2SAT 95
[2023-09-14] MEDS: SODIUM CHLORIDE 0.9% INJ 10 ML SYR IV PRN (03:19)
[2023-09-14 03:20] VITALS: BP 106/67; TEMP 98.4; O2SAT 95
== END 2023-09-14 03:22 | disposition home or self-care (01) ==
LOC: M ED 20:48
DX: I50.23 Acute on chronic systolic (congestive) heart failure (principal); I25.119 Atherosclerotic heart disease of native coronary artery with unspecified angina pectoris; F10.10 Alcohol abuse, uncomplicated; Z88.1 Allergy status to other antibiotic agents; Z79.899 Other long term (current) drug therapy
CPT/HCPCS: 71046; 80048; 80162; 82550; 82553; 83735; 83880; 84484; 85025; 87486; 87581; 87633; 87798; 93005; 96374; 96375; 99285; J1940

== ENCOUNTER → 2023-10-13 | Outpatient (CLI) | payer OTHER, MEDICARE ==
[~2023-10-13] MED LIST changes: +DOXY-323; -DOXY-443
[2023-10-13 18:50] LABS: CALCIUM LEVEL 9.4 MG/DL (8.3-10.6); CREATININE FOR GFR 1.03 MG/DL (0.55-1.30); GLOMERULAR FILTRATION RATE 54.9 (>32); POTASSIUM SERUM 3.4 MMOL/L (3.5-5.1)
== END ==
LOC: M PLALAB 15:17
PROVIDERS: ATTEND Internal Medicine Cardiovascular Disease
DX: I42.7 Cardiomyopathy due to drug and external agent (principal); T45.1X5A Adverse effect of antineoplastic and immunosuppressive drugs, initial encounter

== ENCOUNTER → 2023-11-10 | Outpatient (CLI) | payer OTHER, MEDICARE ==
[2023-11-10 20:13] LABS: BLOOD UREA NITROGEN 25 MG/DL (9-23); CALCIUM LEVEL 9.4 MG/DL (8.3-10.6); CARBON DIOXIDE LEVEL 32 MMOL/L (20-31); CHLORIDE LEVEL 99 MMOL/L (98-107); CREATININE FOR GFR 0.94 MG/DL (0.55-1.30); GLOMERULAR FILTRATION RATE > 60.0 (>32); GLUCOSE, FASTING 101 MG/DL (74-106); POTASSIUM SERUM 3.7 MMOL/L (3.5-5.1); SODIUM LEVEL 139 MMOL/L (136-145)
== END ==
LOC: M PLALAB 15:59
PROVIDERS: ATTEND Physician Assistant
DX: E87.6 Hypokalemia (principal); R25.2 Cramp and spasm

== ENCOUNTER → 2023-11-16 | Outpatient (REF) | payer OTHER, MEDICARE ==
[~2023-11-16] MED LIST changes: +SPIR-10 PO
== END ==
LOC: M LAB REF 15:51
PROVIDERS: ATTEND Internal Medicine Cardiovascular Disease
DX: I50.42 Chronic combined systolic (congestive) and diastolic (congestive) heart failure (principal)

== ENCOUNTER → 2023-11-23 | Outpatient (CLI) | payer MEDICARE, OTHER ==
[~2023-11-23] MED LIST changes: +GASTROGRAFIN SOLUTION 30ML As Ordered ONE; +ISOVUE-370 76% 100ML VIAL As Ordered ONE
== END ==
LOC: M RAD 09:35
PROVIDERS: ATTEND Internal Medicine Medical Oncology
DX: C91.50 Adult T-cell lymphoma/leukemia (HTLV-1-associated) not having achieved remission (principal)
CPT/HCPCS: 71260; 74177; Q9963; Q9967

== ENCOUNTER → 2023-12-12 | Outpatient (CLI) | payer OTHER, MEDICARE ==
[~2023-12-12] MED LIST changes: -GASTROGRAFIN SOLUTION 30ML As Ordered ONE; -ISOVUE-370 76% 100ML VIAL As Ordered ONE
[2023-12-12 18:47] LABS: CALCIUM LEVEL 9.9 MG/DL (8.3-10.6); CREATININE FOR GFR 1.17 MG/DL (0.55-1.30); GLOMERULAR FILTRATION RATE 47.4 (>32); POTASSIUM SERUM 4.2 MMOL/L (3.5-5.1)
== END ==
LOC: M PLALAB 14:31
PROVIDERS: ATTEND Internal Medicine Cardiovascular Disease
DX: I42.7 Cardiomyopathy due to drug and external agent (principal); T45.1X5A Adverse effect of antineoplastic and immunosuppressive drugs, initial encounter

== ENCOUNTER → 2024-03-14 | Outpatient (CLI) | payer OTHER, MEDICARE ==
[~2024-03-14] MED LIST changes: -DOXY-323; +DOXY-441
[2024-03-14 18:46] LABS: HEMOGLOBIN A1c 6.2 % (4.0-6.0)
[2024-03-14 18:53] LABS: ALBUMIN 3.9 G/DL (3.2-5.2); BILIRUBIN,TOTAL 1.3 MG/DL (0.3-1.2); CALCIUM LEVEL 9.9 MG/DL (8.3-10.6); CHOLESTEROL RISK RATIO 3.1 (<5); CREATININE FOR GFR 0.99 MG/DL (0.55-1.30); CREATININE, URINE 55.7 MG/DL; GLOMERULAR FILTRATION RATE 57.3 (>32); HDL CHOLESTEROL 41.6 MG/DL (>40); LDL CHOLESTEROL 60.6 MG/DL (<100); NON-HDL-C 87.4 MG/DL; POTASSIUM SERUM 3.8 MMOL/L (3.5-5.1); TOTAL PROTEIN 7.5 G/DL (5.7-8.2)
[2024-03-14 18:56] LABS: MAU/CREAT RATIO 7.1 MCG/MG (0.0-30.0)
== END ==
LOC: M PLALAB 14:24
PROVIDERS: ATTEND Physician Assistant
DX: Z13.220 Encounter for screening for lipoid disorders (principal)

== ENCOUNTER 2024-03-31 14:32 | Observation (INO) | payer MEDICARE, OTHER ==
[~2024-03-31] VITALS: Ht 162.6 cm; Wt 49.5 kg
[~2024-03-31 14:32] MED LIST changes: -JARD1TAB; +JARD1TAB PO
[2024-03-31 15:42] LABS: BASO % 0.5 % (0.0-1.0); EOS # 0.2 10^3/uL (0.0-0.5); HEMATOCRIT 50.6 % (36.0-47.0); HEMOGLOBIN 17.2 g/dl (12.0-15.5); LYMPH # 1.4 10^3/uL (1.5-5.0); LYMPH % 20.5 % (24.0-44.0); MEAN CORPUSCULAR HEMOGLOBIN 34.4 pg (27.0-33.0); MEAN CORPUSCULAR VOLUME 101.2 fl (80.0-96.0); MONO # 1.1 10^3/uL (0.0-0.8); MONO % 17.1 % (2.0-8.0); NEUTROPHILS # 3.9 10^3/uL (1.5-8.5); NEUTROPHILS % 58.6 % (36.0-66.0); PLATELET COUNT, AUTOMATED 136 10^3/uL (150-450); WHITE BLOOD COUNT 6.7 10^3/uL (4.0-10.0)
[2024-03-31 16:14] LABS: CALCIUM LEVEL 9.5 MG/DL (8.3-10.6); CREATININE FOR GFR 1.05 MG/DL (0.55-1.30); DIGOXIN LEVEL 0.8 NG/ML (0.8-2.0); GLOMERULAR FILTRATION RATE 53.5 (>32); MAGNESIUM LEVEL 2.4 MG/DL (1.8-2.4); POTASSIUM SERUM 4.1 MMOL/L (3.5-5.1)
[2024-03-31 16:16] LABS: FREE T4 1.59 NG/DL (0.89-1.76)
[2024-03-31 16:17] LABS: THYROID STIMULATING HORMONE 1.489 uIU/ML (0.55-4.78)
[2024-03-31] MEDS: NS 500 ML IV ONE (17:59)
[2024-03-31] MEDS: MIDODRINE 5 MG TAB PO ONE (18:08)
[2024-03-31] MEDS ORDERED: VALS40TA9 PO (20:09)
[2024-03-31] MEDS ORDERED: NYST100085 TOP (20:09)
[2024-03-31] MEDS ORDERED: HOME MED LIST COMPLETE! XX SCH (20:10)
[2024-03-31 20:48] VITALS: BP 92/47; TEMP 98.2; O2SAT 96
[2024-03-31] MEDS: DIGOXIN 0.125 MG TAB PO SCH (23:04)
[2024-03-31] MEDS: DABIGATRAN ETEXILATE 75 MG CAP (PRADAXA) PO SCH (23:05)
[2024-03-31 23:08] VITALS: BP 110/70; TEMP 98.5; O2SAT 95
[2024-04-01 03:13] VITALS: BP 90/54; TEMP 97.8; O2SAT 93
[2024-04-01 06:20] LABS: BASO % 0.5 % (0.0-1.0); EOS # 0.2 10^3/uL (0.0-0.5); EOS % 3.9 % (0.0-3.0); HEMATOCRIT 43.1 % (36.0-47.0); LYMPH # 1.4 10^3/uL (1.5-5.0); LYMPH % 24.4 % (24.0-44.0); MEAN CORPUSCULAR HEMOGLOBIN 34.3 pg (27.0-33.0); MEAN CORPUSCULAR HGB CONC 33.6 g/dl (32.0-36.5); MEAN CORPUSCULAR VOLUME 101.9 fl (80.0-96.0); MONO % 17.5 % (2.0-8.0); NEUTROPHILS % 53.5 % (36.0-66.0); PLATELET COUNT, AUTOMATED 123 10^3/uL (150-450); RED BLOOD COUNT 4.23 10^6/uL (4.00-5.40); WHITE BLOOD COUNT 5.6 10^3/uL (4.0-10.0)
[2024-04-01 06:21] LABS: HEMOGLOBIN 14.5 g/dl (12.0-15.5)
[2024-04-01] MEDS ORDERED: TORS20TA2 PO (06:59)
[2024-04-01] MEDS ORDERED: VALS40TA9 PO (06:59)
[2024-04-01 07:26] LABS: CALCIUM LEVEL 8.7 MG/DL (8.3-10.6); CREATININE FOR GFR 1.02 MG/DL (0.55-1.30); GLOMERULAR FILTRATION RATE 55.4 (>32); POTASSIUM SERUM 3.9 MMOL/L (3.5-5.1)
[2024-04-01 07:42] VITALS: BP 92/55; TEMP 97.7; O2SAT 93
[2024-04-01] MEDS ORDERED: PILL CUTTER 1 EACH XX ONE (09:01)
[2024-04-01] MEDS: MIDODRINE 2.5 MG TAB PO SCH (09:03)
[2024-04-01 09:04] VITALS: BP 92/55
[2024-04-01] MEDS: METOPROLOL SUCC (TopROL XL) 100MG *XL* TAB PO SCH (09:04)
[2024-04-01] MEDS: SPIRONOLACTONE 25 MG TAB PO SCH (09:04)
[2024-04-01] MEDS ORDERED: METOPROLOL SUCC (TopROL XL) 100MG *XL* TAB PO SCH (21:00)
== END 2024-04-01 11:35 | disposition home or self-care (01) ==
LOC: EDBD 14:32 → M ED 14:32 → M ED INP 14:33 → M PCU 20:44
PROVIDERS: ADMIT Internal Medicine Nephrology; ATTEND Internal Medicine Nephrology
DX: I95.2 Hypotension due to drugs (principal); T46.5X5A Adverse effect of other antihypertensive drugs, initial encounter; R55 Syncope and collapse; E86.9 Volume depletion, unspecified; I48.91 Unspecified atrial fibrillation; I25.10 Atherosclerotic heart disease of native coronary artery without angina pectoris; I50.22 Chronic systolic (congestive) heart failure; Z95.810 Presence of automatic (implantable) cardiac defibrillator; J98.4 Other disorders of lung; C83.3A Diffuse large B-cell lymphoma, in remission; C82.9A Follicular lymphoma, unspecified, in remission; I42.0 Dilated cardiomyopathy; I95.89 Other hypotension; M85.80 Other specified disorders of bone density and structure, unspecified site; K57.90 Diverticulosis of intestine, part unspecified, without perforation or abscess without bleeding; E04.2 Nontoxic multinodular goiter; Z98.890 Other specified postprocedural states; Z98.51 Tubal ligation status; Z86.711 Personal history of pulmonary embolism; Z93.6 Other artificial openings of urinary tract status; Z82.3 Family history of stroke; Z82.49 Family history of ischemic heart disease and other diseases of the circulatory system; Z80.1 Family history of malignant neoplasm of trachea, bronchus and lung; Z87.891 Personal history of nicotine dependence; Z79.899 Other long term (current) drug therapy

== ENCOUNTER → 2024-05-04 | Outpatient (REF) | payer OTHER, MEDICARE ==
[~2024-05-04] MED LIST changes: +NYST100085 TOP; +VALS40TA9 PO
== END ==
LOC: M LAB REF 20:14
PROVIDERS: ATTEND Student in an Organized Health Care Education/Training Program
DX: R30.0 Dysuria (principal)

== ENCOUNTER → 2024-05-22 | Outpatient (REF) | payer OTHER, MEDICARE | LOC: M LAB REF 16:26 | PROVIDERS: ATTEND Student in an Organized Health Care Education/Training Program | DX: R30.0 Dysuria (principal) ==

== ENCOUNTER → 2024-06-03 | Outpatient (REF) | payer OTHER, MEDICARE | LOC: M LAB REF 16:16 | PROVIDERS: ATTEND Student in an Organized Health Care Education/Training Program | DX: R30.0 Dysuria (principal) ==

== ENCOUNTER → 2024-06-19 | Outpatient (REF) | payer MEDICARE, OTHER ==
[~2024-06-19] MED LIST changes: +CEFU1TAB20 PO
== END ==
LOC: M SFHCDERM 17:20
PROVIDERS: ATTEND Physician Assistant
DX: C44.91 Basal cell carcinoma of skin, unspecified (principal)

== ENCOUNTER → 2024-06-25 | Outpatient (CLI) | payer MEDICARE, OTHER ==
[2024-06-25 14:51] LABS: CALCIUM LEVEL 9.1 MG/DL (8.3-10.6); GLOMERULAR FILTRATION RATE 56.6 (>32); POTASSIUM SERUM 3.6 MMOL/L (3.5-5.1)
== END ==
LOC: M PLALAB 10:13
PROVIDERS: ATTEND Internal Medicine Cardiovascular Disease
DX: I42.7 Cardiomyopathy due to drug and external agent (principal)

== ENCOUNTER → 2024-06-28 | Outpatient (CLI) | payer MEDICARE, OTHER | LOC: M WUC 14:50 | PROVIDERS: ATTEND Physician Assistant | DX: S20.212A Contusion of left front wall of thorax, initial encounter (principal); W01.10XA Fall on same level from slipping, tripping and stumbling with subsequent striking against unspecified object, initial encounter; Y93.9 Activity, unspecified; Y92.9 Unspecified place or not applicable ==

== ENCOUNTER → 2024-09-04 | Outpatient (CLI) | payer MEDICARE, OTHER ==
[2024-09-04 15:19] LABS: BASO % 0.5 % (0.0-1.0); EOS # 0.1 10^3/uL (0.0-0.5); EOS % 1.3 % (0.0-3.0); HEMATOCRIT 47.5 % (36.0-47.0); LYMPH # 1.3 10^3/uL (1.5-5.0); LYMPH % 21.9 % (24.0-44.0); MEAN CORPUSCULAR HEMOGLOBIN 34.6 pg (27.0-33.0); MEAN CORPUSCULAR HGB CONC 33.7 g/dl (32.0-36.5); MEAN CORPUSCULAR VOLUME 102.6 fl (80.0-96.0); MONO # 0.8 10^3/uL (0.0-0.8); MONO % 13.4 % (2.0-8.0); NEUTROPHILS # 3.8 10^3/uL (1.5-8.5); NEUTROPHILS % 62.7 % (36.0-66.0); PLATELET COUNT, AUTOMATED 121 10^3/uL (150-450); RED BLOOD COUNT 4.63 10^6/uL (4.00-5.40)
[2024-09-04 15:28] LABS: ALBUMIN 3.9 G/DL (3.2-5.2); CALCIUM LEVEL 9.7 MG/DL (8.3-10.6); CHOLESTEROL RISK RATIO 2.65 (<5); CREATININE FOR GFR 1.02 MG/DL (0.55-1.30); GLOMERULAR FILTRATION RATE 55.4 (>32); HDL CHOLESTEROL 48.5 MG/DL (>40); LDL CHOLESTEROL 65.9 MG/DL (<100); NON-HDL-C 80.5 MG/DL; POTASSIUM SERUM 4.1 MMOL/L (3.5-5.1); TOTAL PROTEIN 7.4 G/DL (5.7-8.2)
[2024-09-04 15:30] LABS: PERCENT SATURATION 29.3 % (13.2-45.0)
[2024-09-04 15:31] LABS: FERRITIN 103.7 NG/ML (7.3-270.7); THYROID STIMULATING HORMONE 1.326 uIU/ML (0.55-4.78)
[2024-09-04 15:32] LABS: FREE T4 1.45 NG/DL (0.89-1.76)
[2024-09-04 15:36] LABS: HEMOGLOBIN A1c 6.2 % (4.0-6.0)
== END ==
LOC: M PLALAB 09:48
PROVIDERS: ATTEND Student in an Organized Health Care Education/Training Program
DX: Z00.00 Encounter for general adult medical examination without abnormal findings (principal); I48.11 Longstanding persistent atrial fibrillation

== ENCOUNTER → 2025-03-10 | Outpatient (REF) | payer MEDICARE, OTHER ==
[~2025-03-10] MED LIST changes: -PRED50TA PO; +PRED50TA57 PO
== END ==
LOC: M SFHCDERM 17:19
PROVIDERS: ATTEND Physician Assistant
DX: D48.9 Neoplasm of uncertain behavior, unspecified (principal)

== ENCOUNTER 2025-03-25 21:29 | Emergency (ER) | payer MEDICARE, OTHER ==
[~2025-03-25] VITALS: Ht 162.6 cm; Wt 51.9 kg
[2025-03-25 22:26] LABS: BASO # 0.0 10^3/uL (0.0-0.2); BASO % 0.5 % (0.0-1.0); EOS # 0.1 10^3/uL (0.0-0.5); EOS % 1.7 % (0.0-3.0); LYMPH # 1.9 10^3/uL (1.5-5.0); LYMPH % 22.3 % (24.0-44.0); MONO # 1.1 10^3/uL (0.0-0.8); MONO % 13.5 % (2.0-8.0); NEUTROPHILS # 5.1 10^3/uL (1.5-8.5); NEUTROPHILS % 61.6 % (36.0-66.0); PLATELET COUNT, AUTOMATED 152 10^3/uL (150-450)
[2025-03-25] MEDS: MECLIZINE 25 MG TABLET PO ONE (23:21)
[2025-03-25] MEDS ORDERED: ISOVUE-370 76% 100 ML VIAL As Ordered ONE (23:27)
[2025-03-25 23:37] LABS: BASO # 0.0 10^3/uL (0.0-0.2); BASO % 0.6 % (0.0-1.0); EOS # 0.1 10^3/uL (0.0-0.5); EOS % 1.5 % (0.0-3.0); LYMPH # 1.5 10^3/uL (1.5-5.0); LYMPH % 20.8 % (24.0-44.0); MONO # 0.9 10^3/uL (0.0-0.8); MONO % 12.9 % (2.0-8.0); NEUTROPHILS # 4.6 10^3/uL (1.5-8.5); NEUTROPHILS % 64.1 % (36.0-66.0); PLATELET COUNT, AUTOMATED 130 10^3/uL (150-450)
[2025-03-25 23:50] LABS: CK-MB VALUE MASS 2.6 NG/ML (<3.6)
[2025-03-25 23:52] LABS: INR 3.01
[2025-03-26 00:03] LABS: CALCIUM LEVEL 9.6 MG/DL (8.3-10.6); CARBON DIOXIDE LEVEL 28.0 MMOL/L (20-31); CHLORIDE LEVEL 97.0 MMOL/L (98-107); CREATININE FOR GFR 1.07 MG/DL (0.55-1.30); DIGOXIN LEVEL 0.7 NG/ML (0.8-2.0); GLOMERULAR FILTRATION RATE 51.9 (>32); POTASSIUM SERUM 4.1 MMOL/L (3.5-5.1); SODIUM LEVEL 139.0 MMOL/L (136-145)
[2025-03-26 00:09] LABS: CPK CREATINE PHOSPHOKINASE 54.0 U/L (34-145); MB/CK RELATIVE INDEX 4.81 (< OR =4)
[2025-03-26 01:06] LABS: CK-MB VALUE MASS 1.8 NG/ML (<3.6)
[2025-03-26 01:24] LABS: CPK CREATINE PHOSPHOKINASE 49.0 U/L (34-145); MB/CK RELATIVE INDEX 3.67 (< OR =4)
[2025-03-26] MEDS ORDERED: MECL-209 PO (02:02)
[2025-03-26 02:15] VITALS: O2SAT 91
[2025-03-26 02:30] VITALS: BP 120/63; TEMP 97.7
== END 2025-03-26 02:31 | disposition home or self-care (01) ==
LOC: M ED 21:29
DX: H81.4 Vertigo of central origin (principal); I48.91 Unspecified atrial fibrillation; I50.22 Chronic systolic (congestive) heart failure; E11.9 Type 2 diabetes mellitus without complications; Z88.1 Allergy status to other antibiotic agents; Z88.8 Allergy status to other drugs, medicaments and biological substances; Z79.899 Other long term (current) drug therapy
CPT/HCPCS: 36415; 70450; 70496; 70498; 71045; 80047; 80048; 80162; 82550; 82553; 84145; 84484; 85025; 85610; 85730; 93005; 93041; 94760; 99285; Q9967

== ENCOUNTER → 2025-04-03 | Outpatient (REF) | payer OTHER ==
[~2025-04-03] MED LIST changes: +MECL-209 PO
== END ==
LOC: M SFHCPLAZ 12:32
PROVIDERS: ATTEND Family Medicine
DX: Z53.9 Procedure and treatment not carried out, unspecified reason (principal)

== ENCOUNTER → 2025-04-04 | Outpatient (CLI) | payer OTHER ==
[2025-04-04 13:58] LABS: PLATELET COUNT, AUTOMATED 150 10^3/uL (150-450)
[2025-04-04 14:19] LABS: ESTIMATED AVERAGE GLUCOSE 123.0 MG/DL (60-110)
[2025-04-04 14:35] LABS: ALT/SGPT 18.0 U/L (7.0-40); AST/SGOT 26.0 U/L (<34); CALCIUM LEVEL 9.2 MG/DL (8.3-10.6); CARBON DIOXIDE LEVEL 29.0 MMOL/L (20-31); CHLORIDE LEVEL 100.0 MMOL/L (98-107); CHOLESTEROL LEVEL 154.0 MG/DL (<200); CHOLESTEROL RISK RATIO 2.9 (<5); CREATININE FOR GFR 0.96 MG/DL (0.55-1.30); FREE T4 1.38 NG/DL (0.89-1.76); GLOMERULAR FILTRATION RATE 59.1 (>32); LDL CHOLESTEROL 82.8 MG/DL (<100); NON-HDL-C 101.0 MG/DL; POTASSIUM SERUM 4.1 MMOL/L (3.5-5.1); SODIUM LEVEL 138.0 MMOL/L (136-145); TRIGLYCERIDES LEVEL 91.0 MG/DL (<150)
== END ==
LOC: M PLALAB 10:01
PROVIDERS: ATTEND Family Medicine
DX: C82.19 Follicular lymphoma grade II, extranodal and solid organ sites (principal); I48.91 Unspecified atrial fibrillation; E11.9 Type 2 diabetes mellitus without complications

== ENCOUNTER → 2025-05-13 | Outpatient (REF) | payer OTHER | LOC: M SFHCDERM 17:58 | PROVIDERS: ATTEND Dermatology | DX: D23.112 Other benign neoplasm of skin of right lower eyelid, including canthus (principal) ==